=== PATIENT | female | born 1930 | race Caucasian/White ===

== ENCOUNTER 2016-06-23 21:04 | Inpatient (IN) | payer MEDICARE, OTHER ==
[~2016-06-23] VITALS: Ht 160 cm; Wt 55.5 kg
[~2016-06-23 21:04] MED LIST changes: -ALBU2.5V7 AEROSOL; -CALC750T4 PO; -DEXA4TAB PO; -MECL-103 PO; -POLY17PO18 PO; -SCOP1PAT TD; -SENN-152 PO
--- OUTSIDE RECORDS SUMMARY | 2016-06-23 21:10 | XMS REPORT | Continuity of Care Document ---
Author Author [facility] Organization [facility] Address Unknown Phone Unavailable Support Name Relationship Address Phone DARYN CORDOBA MD Caregiver [address] [facility] [address] [place] [address] Unavailable ANDRZEJ PETTIT MD Caregiver [address] [place] [address] Unavailable JAYDE CANSECO Next Of Kin [address] [place] [address] Insurance Providers Guarantor Norris Gomez Address [address] [place] [address] Email [email or web address] Payer Eve[employer] Policy Number [id number] Subscriber's Name Norris Gomez Relationship 18 Self Group Number [facility] Payer Medicare Policy Number [id number] Subscriber's Name Norris Gomez Relationship 18 Self Advance Directives Directive Response Recorded Date/Time Advanced Directives Type None 06/17/16 12:15pm Chief Complaint and Reason for Visit Chief Complaint Head Injury Reason for Visit [id number] Fall Problems Active Problems Medical Problem Onset Date Status Vision changes Unknown Acute Vision changes Unknown Acute Past Problems Medical Problem Onset Date Fall Unknown Lip injury Unknown Nasal injury Unknown Medications Current Home Medications Medication Dose Units Route Directions Days Qty Instructions Start Date Acetaminophen (Acetaminophen Extra Strength) 500 Mg Tablet 1-2 Tab Oral As Needed as needed for Pain 06/17/16 Albuterol Sulfate (Ventolin Hfa 90 Mcg/Actuation) 18 Gm Hfa.aer.ad 1 Puff Oral Inhalation Every 4 Hours as needed for Shortness Of Air/Wheezing 06/17/16 Alprazolam 0.5 Mg Tablet 0.25 Mg Oral As Needed as needed for Prn Orders 08/25/15 Aspirin (Aspir 81) 81 Mg Tablet.dr 81 Mg Oral Daily 04/13/08 Atorvastatin Calcium 10 Mg Tablet 10 Mg Oral Bedtime 12/14/13 Calcium Carbonate (Calcium) 600 Mg Tablet 600 Mg Oral Daily 06/17 Furosemide (Lasix) 20 Mg Tablet 40 Mg Oral Daily 04/27/15 Latanoprost (Xalatan) 2.5 Ml Drops 1 Drop Ophthalmic Daily Levothyroxine Sodium 25 Mcg Tablet 25 Mcg Oral Before Breakfast 12/14/13 Metoprolol Succinate 50 Mg Tab.er.24h 25 Mg Oral Twice A Day 09/21 Multivitamin (Multivitamins) 1 Each Tablet 1 Tab Oral Daily 12/14 Omeprazole (Prilosec) 20 Mg Capsule. 20 Mg Oral Daily 06/17/11 Ondansetron (Ondansetron Odt) 4 Mg Tab.rapdis 4 Mg Oral Every 4 Hours as needed for Nausea &/Or Vomiting 11/12/15 Pea Protein 1 Dose Oral Daily 06/17/16 Polyvinyl Alcohol/Povidone/Pf (Refresh Classic Eye Drops) 1 Each Droperette 1 Drop Both Eyes Daily 11/12/15 Potassium Chloride 20 Meq Tab.er.prt 20 Meq Oral Twice A Day 01/24 Past Home Medications Medication Directions Ordered Status Al Hydroxide/Mg Hydroxide (Maalox) 30 Ml Suspension, Mg Oral 01/15/11 Discontinued Clopidogrel Bisulfate (Plavix) 75 Mg Tablet, 1 Tab Oral Daily 03/27/09 Discontinued Diltiazem Hcl (Diltiazem Er) 120 Mg Capsule.cr, 120 Mg Oral Twice A Day 03/27 Discontinued Isosorbide Mononitrate 30 Mg Tab.sr.24h, 1 Tab Oral Daily 03/27/09 Discontinued Lorazepam 0.5 Mg Tablet, 0.5 Mg Oral As Needed 01/15/11 Discontinued Nitroglycerin (Nitro-Dur) 1 Patch .24 H Patch.td24, 0.2 Mg Transderm Daily Discontinued Omeprazole (Prilosec) 10 Mg Capsule.dr, 1 Tab Oral Daily 04/13/08 Discontinued Valsartan (Diovan) 80 Mg Tablet, 30 Mg Oral Daily 03/27/09 Discontinued Zolpidem Tartrate (Ambien) 10 Mg Tablet, 10 Mg Oral Bedtime 01/15/11 Discontinued Social History Social History Problem Response Recorded Date/Time Onset Date Status Hx Substance Use No 11/11/2015 2:32pm Not Applicable Not Applicable Hx Alcohol Use Y RARE 11/11/2015 2:32pm Not Applicable Not Applicable Has the pt used tobacco in the last 12 months No 11/12/2015 12:01pm Not Applicable Not Applicable Tobacco Usage none 12/14/2013 6:16pm Not Applicable Not Applicable Hospital Discharge Instructions No hospital discharge instructions. Plan of Care Discharge Date 06/17/16 3:12pm Disposition 01 DISCHARGED HOME, SELF-CARE Condition at Discharge Stable Instructions/Education Provided Fall Prevention for Older Adults (ED) Acute Wound Care (ED) Prescriptions See Medication Section Referrals DARYN CORDOBA MD Address: [address] [place] [address] [place] [phone] Additional Instructions/Education 1. Continue keeping lip clean and dry. Use ointment to keep moist. Follow up if it's not healing nicely 2. Follow up with dr. cordoba if you continue to have difficulty breathing through your nose. You may try applying ice to your nose to reduce inflammation 3. Come back to ER or go see Dr. cordoba if you have trouble walking or increased falling Functional Status No functional status results. Allergies, Adverse Reactions, Alerts Allergen Type Severity Reaction Status Last Updated propoxyphene HCl Allergy Unknown Active 06/17/16 Morphine Allergy Intermediate ITCHING,HOT Active 06/17/16 Codeine Adverse Reaction Intermediate VOMITING Active 06/17/16 Hydrocodone Adverse Reaction Intermediate VOMITING Active 06/17/16 Oxycodone Adverse Reaction Unknown CONFUSION Active 06/17/16 Meperidine Adverse Reaction Intermediate VOMITING Active 06/17/16 Immunizations Query Response on File Recorded Date/Time Hx Influenza Vaccination Y fall 201411/12/15 12:01pm Hx Pneumococcal Vaccination Y WITHIN PAST 5 YEARS 11/12/15 12:01pm Hx Influenza Vaccination Y fall 201411/12/15 12:01pm Vital Signs Acute Vital Signs Vital Response Date/Time Temperature (Fahrenheit) 97.8 deg F (96.8 - 99.1) 06/17/2016 12:15pm Temperature (Calculated Celsius) 36.08331 degrees C (36.0 - 37.3) 06/17/2016 12:15pm Pulse Rate (adult) 68 bpm (60 - 100) 06/17/2016 12:15pm Respiratory Rate 14 breaths/min (10 - 20) 06/17/2016 12:15pm O2 Sat by Pulse Oximetry 97 % (90 - 100) 06/17/2016 12:15pm Blood Pressure 218/93 mm Hg 06/17/2016 12:15pm Height (Feet) 5 feet 06/17/2016 12:15pm Height (Inches) 4.00 inches 06/17/2016 12:15pm Weight (Kilograms) 55.000 kg 06/17/2016 12:15pm Body Mass Index (BMI) 20.0 06/17/2016 12:15pm Results Laboratory Results Test Name Result Units Flags Reference Collection Date/Time Result Date/ Time Comments White Blood Count 10.1 T/MM3 4.5-11.0 04/07/2016 9:34a 04/07/2016 9: 39am Red Blood Count 3.97 M/MM3 L 4.00-5.20 04/07/2016 9:34a 04/07/2016 9: 39am Hemoglobin 12.3 GM/DL 12-16 04/07/2016 9:34a 04/07/2016 9:39am Hematocrit 39.7 % 36-46 04/07/2016 9:34a 04/07/2016 9:39am Mean Corpuscular Volume 100.0 UM3 80-100 04/07/2016 9:34a 04/07/2016 9 :39am Mean Corpuscular Hemoglobin 31.0 UUG 26-34 04/07/2016 9:34a 2015 9:39am Mean Corpuscular Hemoglobin Concent 31.0 GM/DL 31-37 04/07/2016 9:34a 04/07/2016 9:39am RDW Standard Deviation 54.7 FL H 36.9-50.2 04/07/2016 9:34a 04/07/2016 9:39am Platelet Count 132 T/MM3 130-400 04/07/2016 9:34a 04/07/2016 9:39am Mean Platelet Volume 12.0 UM3 9.4-12.4 04/07/2016 9:34a 04/07/2016 9: 39am Neutrophils (%) (Auto) 48.2 % 33-66 04/07/2016 9:34a 04/07/2016 9: 39am Lymphocytes (%) (Auto) 37.2 % 23-45 04/07/2016 9:34a 04/07/2016 9: 39am Monocytes (%) (Auto) 12.7 % H 0-9.0 04/07/2016 9:[facility] 04/07/2016 9:39am Eosinophils (%) (Auto) 1.4 % 0-4 04/07/2016 9:[facility] 04/07/2016 9:39am Basophils (%) (Auto) 0.2 % 0-2 04/07/2016 9:[facility] 04/07/2016 9:39am Immature Granulocyte % (Auto) 0.3 % 0.0-0.5 04/07/2016 9:[facility] 2015 9:39am Absolute Neutrophils (auto) 4.9 T/MM3 1.8-7.7 04/07/2016 9:[facility] 2015 9:39am Absolute Lymphocytes (auto) 3.8 T/MM3 1-4.8 04/07/2016 9:[facility] 2015 9:39am Absolute Monocytes (auto) 1.3 T/MM3 H 0-0.8 04/07/2016 9:[facility] 2015 9:39am Absolute Eosinophils (auto) 0.1 T/MM3 0-0.5 04/07/2016 9:[facility] 2015 9:39am Absolute Basophils (auto) 0.0 T/MM3 0-0.2 04/07/2016 9:[facility] 04/07/2016 9:39am Absolute Immature Granulocyte (auto 0.03 T/MM3 0.00-0.03 04/07/2016 9: [facility] 04/07/2016 9:39am Icterus Index < 2 0-7 04/07/2016 9:[facility] 04/07/2016 9:48am Chemistry Specimen Hemolysis < 15 0-25 04/07/2016 9:[facility] 04/07/2016 9 :48am 0-25: Specimen Exhibited No Hemolysis. Turbidity < 20 0-20 04/07/2016 9:34a 04/07/2016 9:48am Sodium Level 137 MEQ/L 134-144 04/07/2016 9:34a 04/07/2016 9:48am Potassium Level 4.5 MEQ/L 3.6-5 04/07/2016 9:[facility] 04/07/2016 9:48am Chloride Level 100 MEQ/L 98-107 04/07/2016 9:34a 04/07/2016 9:48am Carbon Dioxide Level 28 MEQ/L 22-30 04/07/2016 9:[facility] 04/07/2016 9: 48am Anion Gap 9 MEQ/L 5-15 04/07/2016 9:[facility] 04/07/2016 9:48am Blood Urea Nitrogen 18.0 MG/DL H 7-17 04/07/2016 9:34a 04/07/2016 9: 48am Creatinine 0.7 MG/DL 0.7-1.2 04/07/2016 9:[facility] 04/07/2016 9:48am BUN/Creatinine Ratio 26 RATIO 6-26 04/07/2016 9:[facility] 04/07/2016 9:48am Glomerular Filtration Rate Calc 79 04/07/2016 9:[facility] 04/07/2016 9: 48am Glucose Level 85 MG/DL 65-110 04/07/2016 9:[facility] 04/07/2016 9:48am Calculated Osmolality 265 MOSM/KG 261-280 04/07/2016 9:[facility] 04/07/2016 9:48am Calcium Level 9.1 MG/DL 8.4-10.2 04/07/2016 9:[facility] 04/07/2016 9:48am Total Bilirubin 1.10 MG/DL 0.20-1.30 04/07/2016 9:[facility] 04/07/2016 9: 48am Alkaline Phosphatase 122 U/L 38-126 04/07/2016 9:[facility] 04/07/2016 9: 48am Total Protein 7.2 G/DL 6.3-8.2 04/07/2016 9:[facility] 04/07/2016 9:48am Albumin 3.9 G/DL 3.5-5.0 04/07/2016 9:[facility] 04/07/2016 9:48am Globulin 3.3 G/DL 2.4-3.6 04/07/2016 9:[facility] 04/07/2016 9:48am Albumin/Globulin Ratio 1.2 RATIO 1.1-2.2 04/07/2016 9:[facility] 04/07/2016 9 :48am Aspartate Amino Transf (AST/SGOT) 29 U/L 14-36 04/07/2016 9:34a 2015 9:48am Alanine Aminotransferase (ALT/SGPT) 37 U/L 9-52 04/07/2016 9:34am 04/07 9:48am Carcinoembryonic Antigen 2.10 UG/L 0-3.0 04/07/2016 9:34am 04/07/2016 10:18am CA 27.29 36.54 U/ML 0-37.7 04/07/2016 9:34am 04/07/2016 10:20am Name: NORRIS GOMEZ Unit #: [id number] : [id number] Sex: F Admit Date: Loc / Svc: ED Discharge Date: DIAGNOSTIC IMAGING REPORT Report #: [id number] [facility] ECHO Ty Indication: ITS.REASON: FALL, NASAL INJURY PROCEDURE: CT MAXILLOFACIAL W/O CONTRAST: Encounter: Initial Comparison: None Technique: Axial noncontrast CT images through the mid face were performed with coronal and sagittal two-dimensional reformats. Automated Exposure Control and Iterative Reconstruction dose reducing techniques were utilized. Findings: No acute maxillofacial fracture identified. Metallic artifact from prior dental restorations. The paranasal sinuses are grossly clear as are the visualized mastoid air cells. Prior cataract surgeries. The globes are intact. No focal fluid collection or hematoma identified. Leftward nasal septal deviation and spurring. Impression: No acute maxillofacial fracture seen. . Procedures Procedure Status Date Provider(s) Routine venipuncture Completed 04/07/16 Chest x-ray 2vw frontal&latl Completed 04/07/16 Comprehen metabolic panel Completed 04/07/16 Carcinoembryonic antigen Completed 04/07/16 Complete cbc w/auto diff wbc Completed 04/07/16 Immunoassay tumor ca 15-3 Completed 04/07/16 Drain/inj joint/bursa w/o us Completed 05/16/16 Needle localization by xray Completed 05/16/16 [id number]"INJECTION, BETAMETHASONE ACETATE 3MG AND BETAMETHASON Completed 003"HIGH OSMOLAR CONTRAST MATERIAL, 250-299 MG/ML IODINE Completed Encounters Encounter Location Arrival/Admit Date Discharge/Depart Date Attending Provider Departed Emergency Room [facility] 06/17/16 12:13pm 06/17/16 3: 12pm ANDRZEJ PETTIT MD Registered Clinic [facility] 05/16/16 10:25am AURORA ABBASI MD Registered [facility] 04/07/16 8:59am ALPHONSO MANZANO MD Recent Diagnosis
[2016-06-23] MEDS ORDERED: NORMAL SALINE 500 ML IV ONE (21:12)
--- OUTSIDE RECORDS SUMMARY | 2016-06-23 21:12 | XMS REPORT | Continuity of Care Document ---
Author Author [facility] Organization [facility] Address Unknown Phone Unavailable Support Name Relationship Address Phone DARYN MASTERS MD Caregiver [address] [place] [phone] ABDULKADIR WORTHINGTON MD Caregiver [address] [place] [address] [place] [phone] JAYDE CANSECO Next Of Kin [address] [place] [address] Insurance Providers Payer Name Policy Number Subscriber Name Relationship Medicare [id number] Norris Gomez 18 Self [employer] [id number] Norris Gomez 18 Self Advance Directives Directive Response Recorded Date/Time Advanced Directives Type None 12/14/13 12:52pm Problems Medical Problems Problem Onset Date Status Vision changes Unknown Active Vision changes Unknown Active Medications Medication Dose Route Sig Days/Qty Instructions Order Date Discontinued Date Status Aspirin 1 Tab PO DAILY 04/13/08 Active Diltiazem Hcl 120 Mg PO TWICE A DAY 03/27/09 06/24/11 Discontinued Valsartan 30 Mg PO DAILY 03/27/09 06/17/11 Discontinued Nitroglycerin 0.2 Mg TD DAILY 04/13/08 03/27/09 Discontinued Omeprazole 1 Tab PO DAILY 04/13/08 03/27/09 Discontinued Isosorbide Mononitrate 1 Tab PO DAILY 03/27/09 06/17/11 Discontinued Clopidogrel Bisulfate 1 Tab PO DAILY 03/27/09 06/17/11 Discontinued Latanoprost 2.5 Ml OP DAILY 01/15/11 Active Al Hydroxide/Mg Hydroxide Mg PO 01/15/11 06/24/11 Discontinued Zolpidem Tartrate 10 Mg PO BEDTIME 01/15/11 06/17/11 Discontinued Lorazepam 0.5 Mg PO NEEDED 01/15/11 06/17/11 Discontinued Nifedipine 30 Mg PO BEDTIME 06/17/11 Active Omeprazole 20 Mg PO DAILY 06/17/11 Active Fish Oil/[place]-3 Fatty Acids 1 Cap PO DAILY 08/09/11 Active Atorvastatin Calcium 1 Tab PO BEDTIME 12/14/13 Active Levothyroxine Sodium 25 Mcg PO BEFORE BREAKFAST Once daily before breakfast 12/14/13 Active Metoprolol Succinate 25 Mg PO TWICE A DAY 12/14/13 Active Multivitamin 1 Tab PO DAILY 12/14/13 Active Social History Social History Problem Response Recorded Date/Time Smoking Status Never smoker 12/14/2013 12:06pm Hx Substance Use No 12/14/2013 12:06pm Hx Alcohol Use No 12/14/2013 12:06pm Hospital Discharge Instructions No hospital discharge instructions. Plan of Care No plan of care. Functional Status Query Response Date Recorded Physical Hygiene Self December 14, 2013 12:06pm Disabilities Visual December 14, 2013 12:06pm Devices Used Glasses December 14, 2013 12:06pm Dressing Self December 14, 2013 12:06pm Ambulation Self December 14, 2013 12:06pm Diet Self December 14, 2013 12:06pm Mental Status Alert Oriented December 14, 2013 12:06pm Disabilities Visual December 14, 2013 12:06pm Devices Used Glasses December 14, 2013 12:06pm Physical Hygiene Self December 14, 2013 12:06pm Dressing Self December 14, 2013 12:06pm Ambulation Self December 14, 2013 12:06pm Diet Self December 14, 2013 12:06pm Allergies, Adverse Reactions, Alerts Allergen Type Severity Reaction Status Last Updated propoxyphene HCl Allergy Unknown Active 12/14/13 Morphine Allergy Intermediate ITCHING,HOT Active 12/14/13 Codeine Adverse Reaction Intermediate VOMITING Active 12/14/13 Hydrocodone Adverse Reaction Intermediate VOMITING Active 12/14/13 Meperidine Adverse Reaction Intermediate VOMITING Active 01/15/11 Immunizations Name Given Type Hx Influenza Vaccination Y fall Historical Hx Pneumococcal Vaccination Y 3 YRS AGO Historical Hx Influenza Vaccination Y fall Historical Vital Signs Acute Vital Signs Vital Response Date/Time Temperature (Fahrenheit) 97.6 deg F (96.8 - 99.1) Temperature (Calculated Celsius) 36.89790 degrees C (36.0 - 37.3) Pulse Rate (adult) 69 bpm (60 - 100) Respiratory Rate 16 breaths/min (10 - 20) O2 Sat by Pulse Oximetry 96 % (90 - 100) Blood Pressure 186/77 mm Hg Height 5 ft 3.5 in Weight 125 lb Body Mass Index 21.0 kg/m^2 Results Test Source Date Result Interp. Ref. Range Comments Activated Partial Thromboplast Time January 15, 2011 11:00pm 27.4 SEC N 24-36 Alanine Aminotransferase (ALT/SGPT) December 14, 2013 12:59pm 27 U/L N 9-52 Albumin December 14, 2013 12:59pm 4.8 G/DL N 3.5-5.0 Albumin/Globulin Ratio December 14, 2013 12:59pm 1.4 RATIO N 1.1-2.2 Alkaline Phosphatase December 14, 2013 12:59pm 120 U/L N 38-126 Amylase Level June 18, 2011 4:30am 120 U/L H 30-110 Anion Gap December 14, 2013 12:59pm 15 MEQ/L N 5-15 Aspartate Amino Transf (AST/SGOT) December 14, 2013 12:59pm 37 U/L H 14 -36 B-Type Natriuretic Peptide January 15, 2011 11:00pm 335 PG/ML H 15-100 BUN/Creatinine Ratio December 14, 2013 12:59pm 24 RATIO N 6-26 Band Neutrophils # July 12, 2010 12:17pm 0.3 T/MM3 - Band Neutrophils % July 12, 2010 12:17pm 3.0 % N 0-6 Basophils # (Auto) December 14, 2013 12:58pm 0.0 T/MM3 N 0-0.2 Basophils (%) (Auto) December 14, 2013 12:58pm 0.3 % N 0-2 Blood Urea Nitrogen December 14, 2013 12:59pm 19.0 MG/DL H 7-17 Calcium Level December 14, 2013 12:59pm 10.0 MG/DL N 8.4-10.2 Calculated Osmolality December 14, 2013 12:59pm 274 MOSM/KG N 261-280 Carbon Dioxide Level December 14, 2013 12:59pm 25 MEQ/L N 22-30 Chloride Level December 14, 2013 12:59pm 101 MEQ/L N 98-107 Conjugated Bilirubin June 17, 2011 2:40pm 0.00 MG/DL N 0.00-0.30 CALL RESULTS TO [phone] STAT PLEASE Creatinine December 14, 2013 12:59pm 0.8 MG/DL N 0.7-1.2 D-Dimer August 04, 2007 9:31am 773 NG/ML H 68-494 <500 NG/ML FIBRIN DEGRADATION EQUIVALENTS=PRESUMPTIVE NEGATIVE FOR PE OR DVT >500 NG/ML FIBRIN DEGRADATION EQUIVALENTS =ADDITIONAL EVALUATION FOR PE OR DVT RECOMMENDED VALUES ARE DECREASED SHARPLY BY ANTICOAGULANT THERAPY Differential Total Cells Counted July 12, 2010 12:17pm 100 % - Eosinophils # (Auto) December 14, 2013 12:58pm 0.1 T/MM3 N 0-0.5 Eosinophils # (Manual) March 27, 2009 6:20pm 0.3 T/MM3 N 0-0.5 Eosinophils % (Manual) March 27, 2009 6:20pm 4.0 % N 0-4 Eosinophils (%) (Auto) December 14, 2013 12:58pm 0.5 % N 0-4 Globulin December 14, 2013 12:59pm 3.4 G/DL N 2.4-3.6 Glucose Level December 14, 2013 12:59pm 108 MG/DL N 65-110 Hematocrit December 14, 2013 12:58pm 45.1 % N 36-46 Hemoglobin December 14, 2013 12:58pm 15.0 GM/DL N 12-16 Lipase June 18, 2011 4:30am 75 U/L N 23-300 Lymphocytes # (Auto) December 14, 2013 12:58pm 3.4 T/MM3 N 1-4.8 Lymphocytes # (Manual) July 12, 2010 12:17pm 1.3 T/MM3 N 1-4.8 Lymphocytes % (Manual) July 12, 2010 12:17pm 13.0 % L 23-45 Lymphocytes (%) (Auto) December 14, 2013 12:58pm 32.2 % N 23-45 Mean Corpuscular Hemoglobin December 14, 2013 12:58pm 32.5 UUG N 26-34 Mean Corpuscular Hemoglobin Concent December 14, 2013 12:58pm 33.3 GM/DL N 31-37 Mean Corpuscular Volume December 14, 2013 12:58pm 97.6 UM3 N 80-100 Mean Platelet Volume December 14, 2013 12:58pm 12.8 UM3 H 9.4-12.4 Monocytes # (Auto) December 14, 2013 12:58pm 0.9 T/MM3 H 0-0.8 Monocytes # (Manual) July 12, 2010 12:17pm 1.0 T/MM3 H 0-0.8 Monocytes % (Manual) July 12, 2010 12:17pm 10.0 % H 0-9.0 Monocytes (%) (Auto) December 14, 2013 12:58pm 8.9 % N 0-9.0 Neutrophils # (Auto) December 14, 2013 12:58pm 6.1 T/MM3 N 1.8-7.7 Neutrophils # (Manual) July 12, 2010 12:17pm 7.3 T/MM3 N 1.8-7.7 Neutrophils % (Manual) July 12, 2010 12:17pm 74.0 % H 33-66 Neutrophils (%) (Auto) December 14, 2013 12:58pm 57.9 % N 33-66 Platelet Count December 14, 2013 12:58pm 127 T/MM3 L 130-400 Potassium Level December 14, 2013 12:59pm 4.1 MEQ/L N 3.6-5 Prealbumin June 17, 2011 2:40pm 26.2 MG/DL N 17.6-36.0 COMMENT BLOOD IN LAB Prothromb Time International Ratio December 14, 2013 12:59pm 0.88 N 0.81-1.09 THERAPUTIC RANGE=2.00-3.00 FOR ANTI-THROMBOSIS THERAPUTIC RANGE=2.50 -3.50 FOR IMPLANTED VALVE RDW Standard Deviation December 14, 2013 12:58pm 46.3 FL N 36.9-50.2 Red Blood Count December 14, 2013 12:58pm 4.62 M/MM3 N 4.00-5.20 Sodium Level December 14, 2013 12:59pm 141 MEQ/L N 134-144 Thyroid Stimulating Hormone (TSH) December 14, 2013 12:59pm 1.56 MIU/L N 0.47-4.68 Total Bilirubin December 14, 2013 12:59pm 1.30 MG/DL N 0.20-1.30 Total Protein December 14, 2013 12:59pm 8.2 G/DL N 6.3-8.2 Troponin I January 15, 2011 11:00pm < 0.012 ng/ml 0-0.12 Unconjugated Bilirubin June 17, 2011 2:40pm 1.00 MG/DL N 0.00-1.10 CALL RESULTS TO [phone] STAT PLEASE Urine Bilirubin December 14, 2013 12:30pm Negative - Has specimen been collected/obtained? Y Urine Blood December 14, 2013 12:30pm Trace-lysed H - Has specimen been collected/obtained? Y Urine Collection Type December 14, 2013 12:30pm Cleancatch-midstream - Has specimen been collected/obtained? Y Urine Color December 14, 2013 12:30pm Yellow - Has specimen been collected/obtained? Y Urine Glucose (UA) December 14, 2013 12:30pm Negative - Has specimen been collected/obtained? Y Urine Ketones December 14, 2013 12:30pm Negative - Has specimen been collected/obtained? Y Urine Leukocyte Esterase December 14, 2013 12:30pm Negative - Has specimen been collected/obtained? Y Urine Nitrite December 14, 2013 12:30pm Negative - Has specimen been collected/obtained? Y Urine Protein December 14, 2013 12:30pm Negative - Has specimen been collected/obtained? Y Urine Specific [place] December 14, 2013 12:30pm <=1.005 L - Has specimen been collected/obtained? Y Urine Turbidity December 14, 2013 12:30pm Clear - Has specimen been collected/obtained? Y Urine Urobilinogen December 14, 2013 12:30pm 0.2 EU/DL - Has specimen been collected/obtained? Y Urine WBC June 17, 2011 4:20pm 0-1 /HPF - COMMENT C & S IF INDICATEDHas specimen been collected/obtained? Y Urine pH December 14, 2013 12:30pm 6.0 - Has specimen been collected /obtained? Y Vitamin B12 Level June 17, 2011 2:40pm 866 PG/ML N 239-931 COMMENT BLOOD IN LAB White Blood Count December 14, 2013 12:58pm 10.5 T/MM3 N 4.5-11.0 Chemistry Specimen Hemolysis December 14, 2013 12:59pm < 15 0-25 0- 25: No Hemolysis.26-70: Slight Hemolysis - can falsely elevate K and Urine Protein. 71-285: Moderate Hemolysis - can falsely elevate K, Troponin I, CA 19-9, PTH, CSF GLucose, and Urine Protein, and can falsely decrease Phenytoin. 286-999: Gross Hemolysis - can falsely elevate K, Troponin I, CA 19-9, PTH, CSF Glucose, and Urine Protine, and can falsely decrease Phenytoin. Recommend specimen recollection. Urinalysis Comment December 14, 2013 12:30pm Microscopic not ind. - Has specimen been collected/obtained? Y Lab Scanned Report June 17, 2011 4:10pm LAB TEST FORM REQUEST [id number] - EKG May 01, 2009 8:10am Complete - Turbidity December 14, 2013 12:59pm < 20 0-20 Glomerular Filtration Rate Calc December 14, 2013 12:59pm 68 - Immature Granulocyte # (Auto) December 14, 2013 12:58pm 0.02 T/MM3 N 0.00-0.03 Immature Granulocyte % (Auto) December 14, 2013 12:58pm 0.2 % N 0.0- 0.5 Icterus Index December 14, 2013 12:59pm < 2 0-7 Procedures No known history of procedures. Encounters Encounter Location Date/Time Departed Emergency Room [facility] 12/14/13 10:12am Recent Diagnosis
--- OUTSIDE RECORDS SUMMARY | 2016-06-23 21:32 | XMS REPORT | Continuity of Care Document ---
Author Author [facility] Organization [facility] Address Unknown Phone Unavailable Support Name Relationship Address Phone DARYN MASTERS MD Caregiver [address] [place] [phone] ABDULKADIR WORTHINGTON MD Caregiver [address] [place] [address] [place] [phone] JAYDE CANSECO Next Of Kin [address] [place] [address] Insurance Providers Payer Name Policy Number Subscriber Name Relationship Medicare [id number] Norris Gomez 17 Self [place] [id number] Norris Gomez 17 Self Advance Directives Directive [...] 20 Mg PO DAILY 06/17/11 Active Fish Oil/[place]-3 Fatty Acids 1 Cap PO DAILY 08/09/11 [...] F (96.8 - 99.1) Temperature (Calculated Celsius) 36.89580 degrees C (36.0 - 37.3) Pulse Rate [...] 0.00 MG/DL N 0.00-0.30 CALL RESULTS TO [phone] STAT PLEASE Creatinine December 14, 2013 12:59pm [...] 1.00 MG/DL N 0.00-1.10 CALL RESULTS TO [phone] STAT PLEASE Urine Bilirubin December 14, 2013 [...] Has specimen been collected/obtained? Y Urine Specific [place] December 14, 2013 12:30pm <=1.005 L - [...] 17, 2011 4:10pm LAB TEST FORM REQUEST [id number] - EKG May 01, 2009 8:10am Complete [...] Encounters Encounter Location Date/Time Departed Emergency Room [facility] 12/14/13 10:12am Recent Diagnosis
--- NOTE | 2016-06-23 21:45 | ERPDOC ---
Departure Disposition Decision Date: Jun 23, 2016 Disposition Decision Time: 23:35 Disposition: 02 TO [facility] Impression Impression Impression: Primary Impression: Weakness Severity: Moderate Condition: Stable Seen By: Physician only Referrals: DARYN MASTERS MD (Family) Problems/Meds/Labs Reviewed?: Yes Medications reviewed and manag: Yes Follow up care ordered?: Yes Mental Status: Alert, Oriented HPI - Lower Extremity General Chief Complaint: Weakness/Neuro Symptoms Stated Complaint: WEAK LEGS Time Seen by Provider: 21:12 Source: patient, EMS Exam Limitations: no limitations HPI - Lower Extremity Initial Comments 85yo woman presented to the ER for b/l LE weakness. Pt was seen in this ER 1 week ago for a fall. Had a head CT without significant abn's immediately following. Pt has had several other episodes of unsteadiness or falls since; was sent earlier today for a repeat head CT for the falls and some subjective leg weakness. Pt states that over the last 6 hours, weakness has become precipitously worse. Now unsteady on her feet. Has never had sx like this before. Occurred At: home Onset/Timing: Rapid, Gradual, Getting worse Duration: 6-12 hrs Severity: moderate Pain/Injury Location: bilateral hip, bilateral leg, bilateral thigh Method of Injury: unknown Hx of Similar Symptoms: No Associated Symptoms: weakness Allergies: Coded Allergies: morphine (Verified Allergy, Intermediate, ITCHING,HOT, 06/17/16) propoxyphene HCl (Verified Allergy, Unknown, 06/17/16) codeine (Unverified Adverse Reaction, Intermediate, VOMITING, 06/17/16) hydrocodone (Verified Adverse Reaction, Intermediate, VOMITING, 06/17/16) meperidine (Verified Adverse Reaction, Intermediate, VOMITING, 06/17/16) oxycodone (Unverified Adverse Reaction, Unknown, CONFUSION, 06/17/16) Past History Past Medical History Metabolic: cancer, hypercholesterolemia, hypertension ENMT: cataracts, glaucoma Cardiac: CAD, MN, other GI: GERD Musculoskeletal: osteoarthritis Surgical History General: other Cardiac: cardiac bypass, cardiac stent Joint: shoulder Family History Family PMH: FOUND: [place], hypertension Vaccines Hx Influenza Vaccination: Yes (FALL 2014) Hx Pneumococcal Vaccination: Yes (WITHIN PAST 5 YEARS) Social History Does patient use chewing tobac: No Substance Use Type: does not use Alcohol Intake: occasionally Current Occupational Status: retired Review of Systems Musculoskeletal General: weakness Neurological General: weakness All other Systems All Other Systems: Reviewed and Negative Physical Exam General General Nourishment: well nourished, well developed, appears stated age, no acute distress, adult, thin General Body Habitus: well groomed Vitals and Pain First Documented Vital Signs Date Time Temp Pulse Resp B/P Pulse Ox O2 Delivery O2 Flow Rate FiO2 06/23/16 21:16 98.4 59 18 200/91 96 Room Air Weight: Kilograms: 55.500 Height (feet): 5 Height (inches): 3.00 Triage Pain Scale: RN VS reviewed by Provider: Yes Normal Exams: Head: Normocephalic w/o trauma Eyes: Pupils are PERRLA w/ EOMI, No scleral icterus, irritation Neck: Full range of motion, without adenopathy, JVD Lymphatic: No lymphadenopathy Integumentary: No rashes, hives Neurologic: Patient is alert, and oriented Psychiatric: Patient exhibits, appropriate attention Respiratory (brief) Respiratory: FOUND: clear all epps, equal bilaterally, symmetrical, NOT FOUND : rales, wheezes Cardiovascular (brief) Cardiac: FOUND: regular rate, regular rhythm, NOT FOUND: click, gallop, murmur , pedal edema, peripheral edema, rub Capillary Refill: <2 sec Pulses: all distal extremities, equal, strong Abdomen (brief) Abdominal Brief: FOUND: bowel normo active x4, soft, NOT FOUND: distended, hepatosplenomegaly, pulsatile mass, tender Musculoskeletal Extremity : Side: Bilateral Extremity: thigh, leg, foot Extremity Findings: NOT FOUND: deformity, discoloration, laceration, pain, swelling Comments Strength 4/5 globally Neurologic Motor : Motor Side: bilateral Motor Location: quadriceps, hamstring, foot extension, foot flexion Motor Degree: 4 DTR's : DTR Side: bilateral DTR Location: Patellar DTR Grade: 2+ Differential Diagnoses Considering: Contusion, Dislocation, Fracture, Other (cauda equina, intracranial hemorrhage, compression fx) Progress Results/Orders Orders Procedure Category Date Status Time Cmp - Comprehensive LAB 06/23/16 Complete Metabolic 21:12 Cbc W/Auto LAB 06/23/16 Complete Diff-Reflex Manual 21:12 Troponin I W LAB 06/23/16 Complete Hemolysis Index 21:12 Ua, Dip Wreflex LAB 06/23/16 Complete Microsc & Soft Tile Setter 21:12 EKG EKG 06/23/16 Taken 21:12 Iv Lock (Ed Only) EDM 06/23/16 Transmitted 21:12 Normal Saline (Normal PHA 06/23/16 Complete Saline Iv) 21:12 Tsh - Thyroid Stim LAB 06/23/16 Complete Hormone Magnesium LAB 06/23/16 Complete Phosphorus LAB 06/23/16 Complete 21:[address] 06/23/16 Taken W/Contrast 21:16 Iohexol (Omnipaque) PHA 06/23/16 Complete 22:24 Normal Saline (Ns) PHA 06/23/16 Complete 22:24 Saline Flush (Iv PHA 06/23/16 Complete Flush) 22:24 Place In Facility: ED ADM 06/23/16 Transmitted Lab Results Laboratory Tests Test 06/23/16 21:35 06/23/16 22:59 White Blood Count 7.6T/MM3 Red Blood Count 3.96M/MM3 Hemoglobin 12.6GM/DL Hematocrit 39.1% Mean Corpuscular Volume 98.7UM3 Mean Corpuscular Hemoglobin 31.8UUG Mean Corpuscular Hemoglobin Concent 32.2GM/DL RDW Standard Deviation 47.2FL Platelet Count 125T/MM3 Mean Platelet Volume 12.7UM3 Immature Granulocyte % (Auto) 0.0% Neutrophils (%) (Auto) 47.0% Lymphocytes (%) (Auto) 37.2% Monocytes (%) (Auto) 13.9% Eosinophils (%) (Auto) 1.6% Basophils (%) (Auto) 0.3% Absolute Immature Granulocyte (auto 0.00T/MM3 Absolute Neutrophils (auto) 3.6T/MM3 Absolute Lymphocytes (auto) 2.8T/MM3 Absolute Monocytes (auto) 1.1T/MM3 Absolute Eosinophils (auto) 0.1T/MM3 Absolute Basophils (auto) 0.0T/MM3 Turbidity < 20 Sodium Level 136MEQ/L Potassium Level 4.6MEQ/L Chloride Level 100MEQ/L Carbon Dioxide Level 30MEQ/L Anion Gap 6MEQ/L Blood Urea Nitrogen 17.0MG/DL Creatinine 0.6MG/DL Glomerular Filtration Rate Calc 95 BUN/Creatinine Ratio 28RATIO Glucose Level 106MG/DL Calculated Osmolality 264MOSM/KG Calcium Level 9.5MG/DL Phosphorus Level 4.2MG/DL Magnesium Level 2.2MG/DL Total Bilirubin 1.20MG/DL Icterus Index < 2 Aspartate Amino Transf (AST/SGOT) 36U/L Alanine Aminotransferase (ALT/SGPT) 33U/L Alkaline Phosphatase 123U/L Troponin I < 0.012ng/ml Total Protein 7.0G/DL Albumin 3.8G/DL Globulin 3.2G/DL Albumin/Globulin Ratio 1.2RATIO Thyroid Stimulating Hormone (TSH) 4.05MIU/L Chemistry Specimen Hemolysis 24 Urine Collection Type Cleancatch-midstream Urine Color Yellow Urine Turbidity Clear Urine pH 7.5 Urine Specific [place] <=1.005 Urine Protein Negative Urine Glucose (UA) Negative Urine Ketones Negative Urine Blood Negative Urine Nitrite Negative Urine Bilirubin Negative Urine Urobilinogen 0.2EU/DL Urine Leukocyte Esterase Negative Urinalysis Comment Microscopic not ind. Medications Current ED Medications Sodium Chloride (Normal Saline IV) 500 ml @ 0 mls/hr Q0M ONCE IV Last administered on 06/23/16t 22:05; Start 06/23/16 at 21:12; Stop 06/23/16 at 21:16 ; Status DC Iohexol 1 bottle 1 bottle STK-MED ONCE .ROUTE ; Start 06/23/16 at 22:24; Stop at 22:25; Status DC Sodium Chloride (NS) 100 ml @ As Directed STK-MED ONCE .ROUTE ; Start 06/23/16 at 22:24; Stop 06/23/16 at 22:25; Status DC Sodium Chloride (Iv Flush) 10 ml STK-MED ONCE .ROUTE ; Start 06/23/16 at 22:24; Stop 06/23/16 at 22:25; Status DC Progress Progress Pt without any significant intracranial pathology or lumbar pathology. Pt was observed by NRS to stand without difficulty and pivot to bedside commode. Labs are unremarkable for likely causes of weakness. Urine shows no evidence of infection. At this time, no urgent/emergent causes found for pts sx. Will recommend close f/u with PCM to further identify pts sx. Pt and daughter are uncomfortable with pt going home, based on subjective weakness and h/o recent falls. Pt lives in an assisted living facility by herself, daughter is not able to house pt due to renovation of her home, and daughter and have difficulty lifting pt. Contacted hospitalist for possible observation with PT/OT in the AM. Pt to be admitted for overnight observation and reassessment. 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
[2016-06-23] MEDS ORDERED: MECL-103 PO (21:46)
[2016-06-23 21:56] LABS: BASOPHILS % (AUTO) 0.3 % (0-2); EOSINOPHILS # (AUTO) 0.1 T/MM3 (0-0.5); EOSINOPHILS % (AUTO) 1.6 % (0-4); HCT - HEMATOCRIT 39.1 % (36-46); HGB - HEMOGLOBIN 12.6 GM/DL (12-16); LYMPHOCYTES # (AUTO) 2.8 T/MM3 (1-4.8); LYMPHOCYTES % (AUTO) 37.2 % (23-45); MEAN CORPUSCULAR HGB 31.8 UUG (26-34); MEAN CORPUSCULAR HGB CONC(MCHC 32.2 GM/DL (31-37); MEAN CORPUSCULAR VOLUME 98.7 UM3 (80-100); MEAN PLATELET VOLUME 12.7 UM3 (9.4-12.4); MONOCYTES # (AUTO) 1.1 T/MM3 (0-0.8); MONOCYTES % (AUTO) 13.9 % (0-9.0); NEUTROPHILS #(AUTO)-ABSOLUTE 3.6 T/MM3 (1.8-7.7); RED BLOOD COUNT 3.96 M/MM3 (4.00-5.20); WBC - WHITE BLOOD COUNT 7.6 T/MM3 (4.5-11.0)
[2016-06-23 22:05] LABS: ALBUMIN 3.8 G/DL (3.5-5.0); ALBUMIN/GLOBULIN RATIO 1.2 RATIO (1.1-2.2); ALKALINE PHOSPHATASE 123 U/L (38-126); ALT (SGPT) 33 U/L (9-52); ANION GAP 6 MEQ/L (5-15); AST (SGOT) 36 U/L (14-36); BUN/CREATININE RATIO 28 RATIO (6-26); CALCIUM 9.5 MG/DL (8.4-10.2); CHLORIDE 100 MEQ/L (98-107); CO2 - CARBON DIOXIDE 30 MEQ/L (22-30); CREATININE 0.6 MG/DL (0.7-1.2); GLOMERULAR FILTRATION RATE 95; GLUCOSE 106 MG/DL (65-110); PHOSPHORUS 4.2 MG/DL (2.5-4.5); POTASSIUM 4.6 MEQ/L (3.6-5); SODIUM 136 MEQ/L (134-144)
[2016-06-23 22:10] LABS: MAGNESIUM 2.2 MG/DL (1.6-2.3)
[2016-06-23] MEDS ORDERED: IOHEXOL 300 MG/ML 100ml INJECTION ONE (22:24)
[2016-06-23] MEDS ORDERED: NORMAL SALINE 100 ML ONE (22:24)
[2016-06-23] MEDS ORDERED: SALINE FLUSH 10ml SYRINGE ONE (22:24)
[2016-06-23 22:42] LABS: THYROID STIM HORMONE-TSH 4.05 MIU/L (0.47-4.68)
[2016-06-23 23:08] LABS: BLOOD, URINE NEGATIVE (NEGATIVE); COLOR,URINE YELLOW (YELLOW); LEUKOCYTE ESTERASE ,URINE NEGATIVE (NEGATIVE); NITRITE,URINE NEGATIVE (NEGATIVE); UROBILINOGEN,URINE 0.2 EU/DL (NORMAL)
--- OUTSIDE RECORDS SUMMARY | 2016-06-23 23:53 | XMS REPORT | Continuity of Care Document ---
Author Author [facility] Organization [facility] Address Unknown Phone Unavailable Support Name Relationship Address Phone DARYN MASTERS MD Caregiver [address] [place] [phone] ABDULKADIR WORTHINGTON MD Caregiver [address] [place] [address] [place] [phone] JAYDE CANSECO Next Of Kin [address] [place] [address] Insurance Providers Payer Name Policy Number Subscriber Name Relationship Medicare [id number] Norris Gomez 17 Self [place] [id number] Norris Gomez 17 Self Advance Directives Directive [...] 20 Mg PO DAILY 06/17/11 Active Fish Oil/[place]-3 Fatty Acids 1 Cap PO DAILY 08/09/11 [...] F (96.8 - 99.1) Temperature (Calculated Celsius) 36.27900 degrees C (36.0 - 37.3) Pulse Rate [...] 0.00 MG/DL N 0.00-0.30 CALL RESULTS TO [phone] STAT PLEASE Creatinine December 14, 2013 12:59pm [...] 1.00 MG/DL N 0.00-1.10 CALL RESULTS TO [phone] STAT PLEASE Urine Bilirubin December 14, 2013 [...] Has specimen been collected/obtained? Y Urine Specific [place] December 14, 2013 12:30pm <=1.005 L - [...] 17, 2011 4:10pm LAB TEST FORM REQUEST [id number] - EKG May 01, 2009 8:10am Complete [...] Encounters Encounter Location Date/Time Departed Emergency Room [facility] 12/14/13 10:12am Recent Diagnosis
[2016-06-24] MEDS ORDERED: ALBUTEROL INH.SOLN. 2.5mg/3ml (0.083%) Neb. AEROSOL PRN
[2016-06-24] MEDS ORDERED: ONDANSETRON 4mg/2ml INJECTION IV PRN
[2016-06-24] MEDS ORDERED: HYDROCODONE/APAP 5 mg/325 mg TABLET PO PRN
--- NOTE | 2016-06-24 00:15 | NUR ---
Admission: Pt arrived at 0015 via cart to Room 141 with ER nurse and Pt daughter Present with Pt. Pt transferred from cart to bed with 2 assist holding onto Pt. Pt is unsteady on feet and is having difficulty with moving feet. Pt had a void at bedside commode after arrival. Pt is on room air. Pt denies pain. Pt made comfortable. Admission questions completed with Pt. Daughter left shortly after Pt was made comfortable. Pt oriented to room, call light, etc. Pt is a&o. Will continue to monitor.
[2016-06-24 00:20] VITALS: BP 165/69; PULSE 64; RESP 16; TEMP 97.6; O2SAT 93
[2016-06-24 00:24] VITALS: Ht 160 cm; Wt 55.5 kg
[2016-06-24 00:25] VITALS: PULSE 66; RESP 16
[2016-06-24] MEDS ORDERED: ALPRAZOLAM 0.25 MG TABLET PO PRN (01:00)
--- NOTE | 2016-06-24 01:00 | NUR ---
Orders: Received verbal orders form Dr. Melgoza via [employer] while on in Pt room for SCD's. Pt refused SCD's and states she has had them in the past and they do not allow her to sleep. Pt requested to have a sleep aid. Pt states she takes PRN Xanax at bedtime to help with sleep. Notified Dr. Melgoza and received telephone order for Xanax 0.25mg PO at HS PRN. This nurse verbalized understanding.
[2016-06-24] MEDS: ACETAMINOPHEN 500 MG TABLET PO PRN ×2 (01:30→20:33)
--- NOTE | 2016-06-24 01:30 | NUR ---
PRN/Headache: Pt c/o headache and requesting Tylenol. Notified Dr. Melgoza via tigertext and received telephone order for Tylenol PRN. This nurse tigertexted and reminded him that Pt is allergic to Hydrocodone and that med is currently ordered. Received verbal order for Tylenol PRN. Verbalized understanding. PRN Tylenol administered to Pt as charted. Will continue to monitor.
--- NOTE | 2016-06-24 04:58 | HPPDOC ---
RIMA TAM MD 06/24/16 0447: HPI - Adult Date DATE: 06/24/16 TIME: 05:44 General Chief Complaint: lower extremity weakness History of Present Illness This is an 85-year-old female who apparently 1 week ago fell striking her face. The patient was evaluated in the emergency department and a CT of the head was unremarkable for acute bleed or other injury. Since that time the patient had an episode of nausea and vomiting 2. The patient presented back to her primary care physicians office and a subsequent CT of the head was arranged which again did not demonstrate acute injury. The patient approximately 2:00 this afternoon had onset of increasing weakness to her lower extremities. To the point where she is unable to walk. This has never happened to the patient before. Up to this point this past week the patients bili driving care for herself easily. The episodes of falling are described by patient as a tripping or non-syncopal neurological event. The patient had been highly functional at this point. In the emergency department the patient had a CT of her lumbar spine which did not demonstrate an acute injury. The patients metabolic workup was unremarkable. TSH was normal. Urine was done infection. A CT of the head was repeated and again was without particular findings. Because of ongoing weakness the patient is to be admitted to the hospital for further assessment. The patient has not been incontinent of bowel or bladder. The patient does not describe numbness. The patient describes as inability to bear weight on her legs. The patient denies pain to her back. The patient denies headache. Past Medical History Past Medical History RA HTN dyslipidemia coronary artery disease Surgical History Patient's Surgical History: CABG Left shoulder x 2 bilateral massectomy Current Medications Home Meds Reported Medications Meclizine HCl (Meclizine HCl) 25 Mg Tablet, 25 MG PO BID Y for DIZZINESS Take 1 tablet, by mouth, 2 times a day. 06/23/16 [Pea Protein] No Conflict Check, 1 DOSE PO DAILY 06/17/16 Albuterol Sulfate (Ventolin HFA 90 mcg/actuation) 18 Gm Hfa.aer.ad, 1 PUFF ORAL INH Q4H Y for SHORTNESS OF AIR/WHEEZING 06/17/16 Calcium Carbonate (Calcium) 600 Mg Tablet, 600 MG PO DAILY 06/17/16 Acetaminophen (Acetaminophen Extra Strength) 500 Mg Tablet, 1-2 TAB PO PRN Y for PAIN 06/17/16 Potassium Chloride (Potassium Chloride) 20 Meq Tab.er.prt, 20 MEQ PO BID 06/17/16 Ondansetron (Ondansetron Odt) 4 Mg Tab.rapdis, 4 MG PO Q4HR Y for NAUSEA &/OR VOMITING 11/12/15 Polyvinyl Alcohol/Povidone/Pf (Refresh Classic Eye Drops) 1 Each Droperette, 1 DROP BOTH EYES DAILY, ML 11/12/15 Alprazolam (Alprazolam) 0.5 Mg Tablet, 0.25 MG PO HS Y for PRN ORDERS 08/25/15 Furosemide (Lasix) 20 Mg Tablet, 40 MG PO DAILY 04/27/15 Multivitamin (Multivitamins) 1 Each Tablet, 1 TAB PO DAILY 12/14/13 Metoprolol Succinate (Metoprolol Succinate) 50 Mg Tab.er.24h, 25 MG PO BID, TAB 12/14/13 Levothyroxine Sodium (Levothyroxine Sodium) 25 Mcg Tablet, 25 MCG PO ACB 12/14/13 Atorvastatin Calcium (Atorvastatin Calcium) 10 Mg Tablet, 10 MG PO HS 12/14/13 Omeprazole (Prilosec) 20 Mg Capsule.dr, 20 MG PO BID 06/17/11 Latanoprost (Xalatan) 2.5 Ml Drops, 1 DROP OP DAILY 01/15/11 Aspirin (Aspir 81) 81 Mg Tablet.dr, 81 MG PO DAILY 04/13/08 Allergies: Coded Allergies: morphine (Verified Allergy, Intermediate, ITCHING,HOT, 06/17/16) propoxyphene HCl (Verified Allergy, Unknown, 06/17/16) codeine (Unverified Adverse Reaction, Intermediate, VOMITING, 06/17/16) hydrocodone (Verified Adverse Reaction, Intermediate, VOMITING, 06/17/16) meperidine (Verified Adverse Reaction, Intermediate, VOMITING, 06/17/16) oxycodone (Unverified Adverse Reaction, Unknown, CONFUSION, 06/17/16) Family History Family History: unkown at this time Social History Does patient use chewing tobac: No Substance Use Type: does not use Alcohol Intake: occasionally Current Occupational Status: retired Advance Directives: Yes DPOA for Healthcare Only (Isaura, daughter) Social History Comments 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 no tob, no alcohol highly functioning Review of Systems All Other Systems All Other Systems: Reviewed (remainder of 10-point ROS Neg.) Comments The patient denies headache, change in vision, no double vision, no change in hearing, no neck pain, the patient has some residual facial pain from her initial fall, the patient denies any chest pain, denies any heart palpitations, no PND, orthopnea, but the patient to denies abdominal pain, no nausea or vomiting, patient denies incontinence or change in bowel or bladder, the patient has some injury or bruising to her lower extremities bilaterally, the patient denies any focal neurological complaints, specifically only of the weakness and inability to bear weight which occurred somewhat suddenly this afternoon, a 10 point review systems is otherwise negative except for outlined above Physical Exam General General Nourishment: well nourished, well developed, thin, apparent age, adult General Body Habitus: well groomed Vital Signs Vital Signs Date Time Temp Pulse Resp B/P Pulse Ox O2 Delivery O2 Flow Rate FiO2 06/24/16 00:25 66 16 06/24/16 00:20 97.6 165/69 93 Room Air Height (Feet): 5 Height (Inches): 3.00 Telemetry Rhythm: Sinus Rhythm Eyes Brief: FOUND: EOMI, NOT FOUND: PERRL, scleral icterus Comments residule ecchymosis to face primarily around lips and lower face. Neck Brief: FOUND: midline, NOT FOUND: JVD, nuchal rigidity, other, spasm, tenderness, tracheal deviation Respiratory Brief: FOUND: clear all epps, equal bilaterally, symmetrical, NOT FOUND: other, rales, spasm, tenderness, wheezes Cardiovascular (brief) Cardiac Brief: FOUND: regular rate, regular rhythm, NOT FOUND: click, gallop, murmur, other, pedal edema, peripheral edema, rub Abdomen (brief) Abdominal Brief: FOUND: BS normo active x4, soft, NOT FOUND: distended, other, tender Musculoskeletal (brief) Musculoskeletal Brief: NOT FOUND: deformity, extremities move equally, loss of motion, other, spasm, tenderness Integumentary (brief) Integumentary Brief: FOUND: dry, pink, warm Neurologic (brief) Comments CN 2 through 12 intact easily (appreciate brusing) Strength upper extremity 4plus/5 symetrical strength lower extgremity 4/5 symetrical sensory to light touch intact thorughout (based on patient's history would have anticipated more weakness than demonstrated) not able to effectively demosntrate cerebellar examination Neurologic RN Documented GCS Eye Opening: Verbal: Motor: Total: Psychiatric (brief) FOUND: alert, attentive, normal affect, oriented Laboratory Laboratory Tests Test 06/23/16 21:35 06/23/16 22:59 White Blood Count 7.6T/MM3 Red Blood Count 3.96M/MM3 Hemoglobin 12.6GM/DL Hematocrit 39.1% Mean Corpuscular Volume 98.7UM3 Mean Corpuscular Hemoglobin 31.8UUG Mean Corpuscular Hemoglobin Concent 32.2GM/DL RDW Standard Deviation 47.2FL Platelet Count 125T/MM3 Mean Platelet Volume 12.7UM3 Immature Granulocyte % (Auto) 0.0% Neutrophils (%) (Auto) 47.0% Lymphocytes (%) (Auto) 37.2% Monocytes (%) (Auto) 13.9% Eosinophils (%) (Auto) 1.6% Basophils (%) (Auto) 0.3% Absolute Immature Granulocyte (auto 0.00T/MM3 Absolute Neutrophils (auto) 3.6T/MM3 Absolute Lymphocytes (auto) 2.8T/MM3 Absolute Monocytes (auto) 1.1T/MM3 Absolute Eosinophils (auto) 0.1T/MM3 Absolute Basophils (auto) 0.0T/MM3 Turbidity < 20 Sodium Level 136MEQ/L Potassium Level 4.6MEQ/L Chloride Level 100MEQ/L Carbon Dioxide Level 30MEQ/L Anion Gap 6MEQ/L Blood Urea Nitrogen 17.0MG/DL Creatinine 0.6MG/DL Glomerular Filtration Rate Calc 95 BUN/Creatinine Ratio 28RATIO Glucose Level 106MG/DL Calculated Osmolality 264MOSM/KG Calcium Level 9.5MG/DL Phosphorus Level 4.2MG/DL Magnesium Level 2.2MG/DL Total Bilirubin 1.20MG/DL Icterus Index < 2 Aspartate Amino Transf (AST/SGOT) 36U/L Alanine Aminotransferase (ALT/SGPT) 33U/L Alkaline Phosphatase 123U/L Troponin I < 0.012ng/ml Total Protein 7.0G/DL Albumin 3.8G/DL Globulin 3.2G/DL Albumin/Globulin Ratio 1.2RATIO Thyroid Stimulating Hormone (TSH) 4.05MIU/L Chemistry Specimen Hemolysis 24 Urine Collection Type Cleancatch-midstream Urine Color Yellow Urine Turbidity Clear Urine pH 7.5 Urine Specific Closter <=1.005 Urine Protein Negative Urine Glucose (UA) Negative Urine Ketones Negative Urine Blood Negative Urine Nitrite Negative Urine Bilirubin Negative Urine Urobilinogen 0.2EU/DL Urine Leukocyte Esterase Negative Urinalysis Comment Microscopic not ind. Radiology CT lumbar spine negative for acute disease Assessment & Plan Assessment 1. Lower extremity weakness acute present on admission: This patient has a history of rheumatoid arthritis and fell and hit her face approximately one week ago. The patients weakness is sent in onset. not precipitated this afternoon. The CT of the lumbar spine is reassuring. At this time because of ongoing symptoms, with history of arthritis, well arrange for an MRI of the C- spine and T-spine and L-spine to be done. We need to exclude an occult fracture potentially affecting the spinal cord. Note that the patient has no upper extremity findings. This would lead away from a cervical spine injury. This is the area of most risk with a history of rheumatoid arthritis. Regardless spell complete neuroimaging of spinal cord to exclude occult injury. Well need to ask PT and OT to visit with the patient tomorrow. Consider neurological consultation if possible. Again cannot exclude the possibility of occult injury. Is reassuring that the patient has now had 3 CTs of her head which showed no acute bleeding process. If symptoms persist, if neuro imaging is negative, well need to consider an occult CVA as a possibility. This patient may have a posterior infarct resulting in ataxia. Consideration for MRI of the brain at that time would be indicated. 2. Coronary disease chronic present illness: To be aware of 3. Hypertension chronic present admission: We will monitor blood pressure, dispense is indicated 4. Gastric prophylaxis: PPI 5. DVT prophylaxis: SCD This is a challenging case. There is real concerned in regards to an occult injury. Workup as noted above. DVT Prophylaxis: SCD'S Code Status Full Code Hospital Course Summary Disclaimer The hospital course summary below is not to be considered part of the above Progress Note. TIM FITZGERALD MD 06/24/16 1622: HPI - Adult General History of Present Illness Mrs. Gomez fell 10 days ago when she attempts to turn but her nonskid shoe stayed in place. She fell forward striking her head but did not lose consciousness. This resulted in perioral swelling and. Oral bruising. Several days later maxillofacial CT of the head revealed no fractures. The patient initially describes some facial pain but subsequently developed vertiginous dizziness which has worsened progressively with development of nausea and one episode of emesis yesterday. She denies diplopia, tinnitus, or hearing loss. CT of the head (without contrast) was obtained yesterday without evidence of pathology. In recent days the patient is had increasing difficulty ambulating because her legs give out and she feels like she can't control what her legs do. She describes her legs jerking when she wants to move forward. There's been no bowel or bladder incontinence and bowel and bladder function have been normal. She's having no difficulty swallowing and speech is normal. In the ER last night a CT of the L-spine was obtained with contrast demonstrating degenerative disease at L1-L4 without cord compression. She is noted to the hospital for further evaluation because she cannot ambulate safely in the home environment. Past history, family history, social history, and review of systems are as noted by Dr. Tam with additions as noted. Review of systems is positive only for symptoms described above. Past Medical History Past Medical History Breast cancer initially diagnosed over years ago with recurrence after 22 years, managed by Dr. Fulton Glaucoma Hypothyroidism Surgical History Patient's Surgical History: Cholecystectomy Current Medications Home Meds Reported Medications Meclizine HCl (Meclizine HCl) 25 Mg Tablet, 25 MG PO BID Y for DIZZINESS Take 1 tablet, by mouth, 2 times a day. 06/23/16 [Pea Protein] No Conflict Check, 1 DOSE PO DAILY 06/17/16 Albuterol Sulfate (Ventolin HFA 90 mcg/actuation) 18 Gm Hfa.aer.ad, 1 PUFF ORAL INH Q4H Y for SHORTNESS OF AIR/WHEEZING 06/17/16 Calcium Carbonate (Calcium) 600 Mg Tablet, 600 MG PO DAILY 06/17/16 Acetaminophen (Acetaminophen Extra Strength) 500 Mg Tablet, 1-2 TAB PO PRN Y for PAIN 06/17/16 Potassium Chloride (Potassium Chloride) 20 Meq Tab.er.prt, 20 MEQ PO BID 06/17/16 Ondansetron (Ondansetron Odt) 4 Mg Tab.rapdis, 4 MG PO Q4HR Y for NAUSEA &/OR VOMITING 11/12/15 Polyvinyl Alcohol/Povidone/Pf (Refresh Classic Eye Drops) 1 Each Droperette, 1 DROP BOTH EYES DAILY, ML 11/12/15 Alprazolam (Alprazolam) 0.5 Mg Tablet, 0.25 MG PO HS Y for PRN ORDERS 08/25/15 Furosemide (Lasix) 20 Mg Tablet, 40 MG PO DAILY 04/27/15 Multivitamin (Multivitamins) 1 Each Tablet, 1 TAB PO DAILY 12/14/13 Metoprolol Succinate (Metoprolol Succinate) 50 Mg Tab.er.24h, 25 MG PO BID, TAB 12/14/13 Levothyroxine Sodium (Levothyroxine Sodium) 25 Mcg Tablet, 25 MCG PO ACB 12/14/13 Atorvastatin Calcium (Atorvastatin Calcium) 10 Mg Tablet, 10 MG PO HS 12/14/13 Omeprazole (Prilosec) 20 Mg Capsule.dr, 20 MG PO BID 06/17/11 Latanoprost (Xalatan) 2.5 Ml Drops, 1 DROP OP DAILY 01/15/11 Aspirin (Aspir 81) 81 Mg Tablet.dr, 81 MG PO DAILY 04/13/08 Allergies: Coded Allergies: morphine (Verified Allergy, Intermediate, ITCHING,HOT, 06/17/16) propoxyphene HCl (Verified Allergy, Unknown, 06/17/16) codeine (Unverified Adverse Reaction, Intermediate, VOMITING, 06/17/16) hydrocodone (Verified Adverse Reaction, Intermediate, VOMITING, 06/17/16) meperidine (Verified Adverse Reaction, Intermediate, VOMITING, 06/17/16) oxycodone (Unverified Adverse Reaction, Unknown, CONFUSION, 06/17/16) Family History Family History: Extensive coronary disease and hypertension Social History Marital Status: Advance Directives: Yes Full Code, Yes Living Will Assessment & Plan Assessment EXAM General-blood pressure this morning 146/63, patient afebrile. She is alert and cooperative and speech is fluent HEENT-right pupil 4 mm, left 2 mm, both round and react to light, EOMI, sclera anicteric, conjunctiva clear, facial structure symmetric, oropharynx is clear, the lower lip is swollen with bruising present below the lower lip and superficial ulceration in the midline of the lower lip. Neck is supple without adenopathy. Lungs-Respirations are nonlabored, breath sounds clear Cardiac-regular rhythm, S1-S2 Abd-soft, nontender, without palpable mass Ext-trace edema bilateral lower extremities Skin-facial bruising as noted above, additional bruising over the right grey; no open wounds Neuro-hearing intact to finger tip rub, anisocoria as noted above, EOMI, facial structure symmetric, tongue midline, palate elevates symmetrically, shoulder shrug symmetric. Motor tone and power grossly intact with power graded 4/5 throughout. No tremor and [id number] intact bilateral lower extremities. Sensation intact to light touch 4 extremities. Patient is not ambulated at this time as in route to MRI at time of my evaluation Psych-calm, pleasant, cooperative DX: Vertigo Ataxic gait Lower extremity weakness Probable concussion/brain contusion Hypertension History of breast cancer Coronary artery disease Anemia Glaucoma-continue home eyedrops. Patient has posttraumatic vertigo without question but has developed progressive difficulty ambulating. Imaging of the back by MRI has been scheduled and will additionally add MRI of the head. I was later notified that MRI of the brain was without acute pathology. Results were briefly discussed with Dr. Castillo who was not available to see the patient today. I suspect she has postconcussive vertigo. Scopolamine patch will be initiated in conjunction with when necessary meclizine. Dr. Castillo recommended consideration of low- dose steroids with Decadron to 4 mg twice a day and if she responds steroids can be tapered in the near future. IV fluids given yesterday without change in symptoms. Continue PT/OT. Plan/Intensity of Service Recent head CT, lumbar spine, MRI of the brain reviewed by myself. Discussed with Dr. Castillo. Dr. Tam's notes reviewed. Laboratory data reviewed. RIMA TAM MD Jun 24, 2016 04:47 TIM FITZGERALD MD Jun 24, 2016 16:22
[2016-06-24 05:37] LABS: BASOPHILS % (AUTO) 0.2 % (0-2); EOSINOPHILS # (AUTO) 0.1 T/MM3 (0-0.5); EOSINOPHILS % (AUTO) 1.2 % (0-4); HCT - HEMATOCRIT 35.2 % (36-46); HGB - HEMOGLOBIN 11.5 GM/DL (12-16); IMMATURE GRANULOCYTE # (AUTO) 0.02 T/MM3 (0.00-0.03); IMMATURE GRANULOCYTE % (AUTO) 0.2 % (0.0-0.5); LYMPHOCYTES # (AUTO) 3.2 T/MM3 (1-4.8); LYMPHOCYTES % (AUTO) 35.5 % (23-45); MEAN CORPUSCULAR HGB 32.2 UUG (26-34); MEAN CORPUSCULAR HGB CONC(MCHC 32.7 GM/DL (31-37); MEAN CORPUSCULAR VOLUME 98.6 UM3 (80-100); MEAN PLATELET VOLUME 13.3 UM3 (9.4-12.4); MONOCYTES # (AUTO) 1.3 T/MM3 (0-0.8); MONOCYTES % (AUTO) 14.6 % (0-9.0); NEUTROPHILS #(AUTO)-ABSOLUTE 4.3 T/MM3 (1.8-7.7); NEUTROPHILS % (AUTO) 48.3 % (33-66); RED BLOOD COUNT 3.57 M/MM3 (4.00-5.20)
[2016-06-24] MEDS: LEVOTHYROXINE 25 MCG TABLET PO SCH (05:38)
[2016-06-24 06:08] LABS: ANION GAP 8 MEQ/L (5-15); BUN/CREATININE RATIO 28 RATIO (6-26); CALCIUM 8.8 MG/DL (8.4-10.2); CHLORIDE 103 MEQ/L (98-107); CO2 - CARBON DIOXIDE 27 MEQ/L (22-30); CREATININE 0.6 MG/DL (0.7-1.2); GLOMERULAR FILTRATION RATE 95; GLUCOSE 87 MG/DL (65-110); POTASSIUM 3.9 MEQ/L (3.6-5); SODIUM 138 MEQ/L (134-144)
[2016-06-24 07:24] VITALS: BP 146/63; PULSE 62; RESP 16; TEMP 98; O2SAT 95
[2016-06-24 08:04] VITALS: PULSE 62; RESP 16
[2016-06-24] MEDS: METOPROLOL XL 25 MG TABLET PO SCH ×2 (08:38→17:28)
[2016-06-24] MEDS: ASPIRIN *EC* 81mg TABLET PO SCH (08:38)
[2016-06-24] MEDS ORDERED: OMEPRAZOLE 20 MG CAPSULE PO SCH (09:00)
--- NOTE | 2016-06-24 10:19 | NUR ---
Status RN reported to Dr Rodriguez PT/OT report and suggestions after working with her. Dr Rodriguez said she would look into it.
--- NOTE | 2016-06-24 10:42 | NUR ---
Status Patient resting quietly in chair. Updated she will be going to MRI around 11 and patient voiced understanding. Continues to be alert and oriented x3. Denies pain.
--- NOTE | 2016-06-24 11:15 | NUR ---
Patient Left Patient left for MRI at present time. Patient's daughter present and answered MRI questions.
[2016-06-24] MEDS ORDERED: SALINE FLUSH 10ml SYRINGE ONE (12:37)
[2016-06-24] MEDS ORDERED: GADOBUTROL 10mMol/10ml INJECTION IV ONE (12:37)
--- NOTE | 2016-06-24 14:00 | NUR ---
Patient return Patient returned from imaging at present time.
--- NOTE | 2016-06-24 14:02 | NUR ---
CM CM IN TO VISIT WITH PT. SHE IS ALERT AND ORIENTED. SHE IS ASSISTED TO BED WITH ASSIST OF 2. SHE IS INTERESTED IN [facility] V. SNF AT [facility]. CM EXPLAINS DIFFERENCES IN PROGRAMS. PT IS MADE AWARE THAT 3 OVERNIGHT STAY IS REQUIRED FOR SNF TO BE COVERED BY INSURANCE. PT VERBALIZED UNDERSTANDING. PT IS GIVEN CM CONTACT INFORMATION. Addendum: 06/24/16 at 1403 by JAY JEROME RN Amended: Links added.
--- NOTE | 2016-06-24 14:28 | DI ---
EXAM: MRI BRAIN W/WO CONTRAST COMPARISON: None available. HISTORY: ITS.REASON: vertigo, bilat leg weakness . MRI BRAIN W/WO CONTRAST: Comparisons: August 10, 2010. October 15, 2012. Technique: Multiplanar, multisequence, MR imaging of the head with and without contrast was acquired. Contrast: 6 mL of Gadavist FINDINGS: The CSF spaces are prominent likely due to to atrophy in keeping with age and is similar to the prior exam. Extensive T2/flair white matter hyperintensities are seen throughout the frontoparietal deep and periventricular white matter. These may have slightly progressed when compared to the prior exam. There is also abnormal T2/flair hyperintensity within the midbrain and sarita. Following intravenous administration of contrast, no areas of abnormal enhancement are evident. There are no areas of restricted diffusion to suggest an acute infarct. There is no evidence of an intracranial mass lesion, intracranial hemorrhage, or hydrocephalus. The visualized portions of the orbits, calvarium, paranasal sinuses, and skull base demonstrate no significant abnormality. The dunbar-white junctions are distinct. No sulcal effacement is identified. The posterior fossa and brainstem region otherwise appear unremarkable. Suprasellar cisterns are partly cisterns are intact. IMPRESSION: 1. Extensive partial deep white matter hyperintense FLAIR foci again noted which may have progressed since prior exam. This most likely represents changes of chronic microvascular ischemia. 2. Atrophy in keeping with age. 3. Otherwise unremarkable. .
--- NOTE | 2016-06-24 14:43 | DI ---
EXAM: MRI LUMBAR SPINE W/WO CONTRAST COMPARISON: None available. HISTORY: ITS.REASON: sudden lower extremity weakness after a fall hx of RA . Technique: Routine sagittal and axial sequences were obtained through the lumbar spine with and without IV contrast. 6 cc Gadavist contrast was used for the study. FINDINGS: The lumbar vertebral bodies are relatively well aligned. There may be minimal retrolisthesis of L1 on L2. There is disc space narrowing at L1-2, L2-3, and L3-4 with mild disc bulges. There is hypointense T1 and hyperintense T2 signal changes seen at the endplates at L3-4 likely representing Modic one discogenic change. There is a hypointense T1 and hypointense T2 rounded structure within the L4 vertebral body which may represent a bone island. Sagittal images through the neural foramina, shows neural foraminal narrowing at L2-3 from lateral disc bulge and facet hypertrophic change on the right side. Axial images obtained at L1-2 shows no significant spinal canal stenosis. There is minimal disc bulge flattening the anterior thecal sac. At L2-3, no significant spinal canal stenosis is identified. There is mild disc bulge flattening the thecal thecal sac. Ligamentum flavum hypertrophy is also noted. At L3-4 there is mild disc bulge flattening the thecal sac and with ligamentum flavum hypertrophy contributes to mild spinal canal narrowing. At L4-5 disc bulge and facet hypertrophic change are noted without significant spinal canal stenosis. There may be an annular tear. At L5-S1. There is disc bulge with convex mass effect and anterior spinal canal and approaches the S1 nerve roots but may not contact the nerve roots. No soft tissue abnormalities are appreciated. No abnormal enhancing lesions or masses are seen. IMPRESSION: 1. Disc space narrowing at L1-L2, L2-3, and L3-4 with mild disc bulges. There is mild spinal canal narrowing at L3-4 from disc bulge and ligamentum flavum hypertrophy. 2. Right-sided neural foraminal narrowing at L2-3 from mild lateral disc bulge and facet hypertrophic changes. It is uncertain whether the right L2 nerve root is affected. LOCATION OF DICTATION: [facility] [place] .
--- NOTE | 2016-06-24 14:59 | DI ---
EXAM: MRI CERVICAL SPINE W/WO CONTRA COMPARISON: None available. HISTORY: ITS.REASON: sudden weakness in legs after fall. history of RA . Technique: Routine sagittal and axial sequences through the cervical spine were obtained with and without contrast. 60 cc Gadavist contrast was used for this study. FINDINGS: There is disc space narrowing at C5-6 and C6-7 with disc bulge and posterior bony ridging. The posterior fossa and brainstem region and spinal cord signal appears unremarkable. There is some increased T2 signal changes seen within the sarita but was present on prior exam as well and may be related to chronic small vessel ischemic disease. Axial images obtained at C2-3, shows no significant spinal canal stenosis or neural foraminal narrowing. At C3-4, there are facet hypertrophic changes. No significant spinal canal stenosis or neural foraminal narrowing is identified. At C4-5, there is mild flattening of the anterior thecal sac. No significant neural foraminal narrowing is appreciated. At C5-6, disc bulge and posterior bony ridging flattens the anterior thecal sac and may have mild mass effect on the anterior cord. The posterior subarachnoid space is patent. At C6-7, there is mild disc bulge flattening the anterior thecal sac, but does not contact the cord. There may be some mild left-sided neural foraminal narrowing from facet and uncovertebral joint hypertrophic change. At C7-T1, no significant spinal canal stenosis or neural foraminal narrowing. There is mild disc bulge seen at T3-4. No abnormal enhancing lesions are identified. Space-occupying mass is not seen. No abnormal cord signal is appreciated. No evidence for cord contusion or other abnormality of the cord is identified. There may be some periarticular erosions at the base of the dens which may be related to patient's known rheumatoid arthritis. Fluid signal is seen at the articulation of the anterior arch of C1 and the dens. IMPRESSION: 1. At C5-6 there is disc bulge and posterior bony ridging which may have some mild flattening mass effect on the anterior cord. The posterior subarachnoid space remains patent. 2. At C6-7 there is mild disc bulge flattening the anterior thecal sac but does not contact anterior cord. 3. Arthritic changes is seen of the dens articulation with the anterior arch of C1 likely related to patient's known rheumatoid arthritis. LOCATION OF DICTATION: [facility] [place] .
--- NOTE | 2016-06-24 15:12 | DI ---
EXAM: MRI THORACIC SPINE W/WO CONTRA COMPARISON: None available. HISTORY: ITS.REASON: sudden lower extremity weakness after fall. hx of RA . Technique: Routine sequences were obtained through the thoracic spine with and without IV contrast and sagittal and axial planes. 6 cc of Gadavist contrast was used for the study. FINDINGS: The thoracic vertebral bodies are well aligned. There is loss of height of the T11 vertebral body by approximately 15%. However no marrow edema is appreciated and this is likely old. There is mild disc bulge at T3-4. Sagittal images through the neural foramina shows no significant neural foraminal narrowing. There may be mild neural foraminal narrowing at T7-8 level from lateral disc bulge, but does not appear to contact the nerve roots. No abnormal bone marrow signal changes are appreciated. No abnormal enhancing lesions identified. The spinal cord signal appears unremarkable. Axial images obtained at the level of T1-2 and T2-3 appear unremarkable without spinal canal compromise identified.. At T3-4 there is mild disc bulge flattening the anterior thecal sac, but does not contact cord. Axial images from T4-5 through T9-10 shows no significant spinal canal stenosis or neural foraminal narrowing. At T10-11 there is minimal disc bulge flattening the anterior thecal sac. T11 is intact. At T11-12 no significant spinal canal stenosis or neural foraminal narrowing. No prevertebral soft tissue abnormalities are identified. IMPRESSION: 1. Old compression deformity of the T11 total body with 15 % loss of height. However no marrow edema is identified. No acute fracture seen. 2. Minimal disc bulge at T3-4 flattening the anterior thecal sac without mass effect on the cord. 3. No neural compromise is appreciated. LOCATION OF DICTATION: [facility] – [place] .
--- NOTE | 2016-06-24 15:38 | DI ---
Indication: ITS.REASON: B/l LE weakness PROCEDURE: CT LUMBAR SPINE W/CONTRAST: Encounter: Initial Comparison: MRI lumbar spine dated June 24, 2016 Technique: Axial noncontrast CT imaging of the lumbar spine was performed with coronal and sagittal two-dimensional reformats. Automated Exposure Control and Iterative Reconstruction dose reducing techniques were utilized. FINDINGS: The alignment of the lumbar spine is stable. No acute compression fracture seen. Scoliosis and degenerative change with moderate degenerative disk disease at L1-L2, L2-L3 and L3-L4. Paraspinal soft tissues are unremarkable. No acute displaced fracture seen. Bony demineralization limits detection of nondisplaced fractures. Impression: No acute fracture seen. There is a preliminary report by virtual radiologic. .
[2016-06-24 16:00] VITALS: BP 175/72; PULSE 70; RESP 18; TEMP 97.3; O2SAT 95
--- NOTE | 2016-06-24 16:19 | NUR ---
IRU referral received. Discussed with therapy participation expectation with patient. She advises has been in IRU after pelvic fractures and is willing and motivated to participate to return to prior level of function. Discharge pending medical evaluation. Will review with Dr. Crain IRU Wire Walker when anticipated discharge date is available.
[2016-06-24] MEDS: OMEPRAZOLE 20 MG CAPSULE PO SCH (17:28)
[2016-06-24] MEDS: DEXAMETHASONE 4 MG TABLET PO SCH (17:28)
[2016-06-24] MEDS: SCOPOLAMINE 1.5 MG PATCH TD SCH (17:28)
--- NOTE | 2016-06-24 19:25 | NUR ---
Status Patient has been alert and oriented today. Requires 1-2 people for transfers and ambulation. Has been continent this shift. Numerous bruises throughout body though patient has denied pain throughout shift. Able to use call light to express needs. Alarms in use for patient safety.
[2016-06-24] MEDS: ATORVASTATIN 10 MG TABLET PO SCH (20:34)
[2016-06-25] VITALS: BP 147/70; PULSE 66; RESP 18; TEMP 97.5; O2SAT 96
--- NOTE | 2016-06-25 04:50 | NUR ---
SUMMARY PT ALERT AND ORIENTED X4, REPORTS PAIN IN HER SHOULDERS, REQUESTED TYLENOL. REPORTED ALLERGY TO HYDROCODONE, TELE HOSPITALIST NOTIFIED FOR DC OF MED. PT SLEPT MOST OF NIGHT. NO COMPLAINTS. IV LOCK RT WRIST.
[2016-06-25 05:34] LABS: HCT - HEMATOCRIT 35.9 % (36-46); HGB - HEMOGLOBIN 11.8 GM/DL (12-16); IMMATURE GRANULOCYTE # (AUTO) 0.01 T/MM3 (0.00-0.03); IMMATURE GRANULOCYTE % (AUTO) 0.2 % (0.0-0.5); LYMPHOCYTES # (AUTO) 1.6 T/MM3 (1-4.8); LYMPHOCYTES % (AUTO) 28.8 % (23-45); MEAN CORPUSCULAR HGB 32.1 UUG (26-34); MEAN CORPUSCULAR HGB CONC(MCHC 32.9 GM/DL (31-37); MEAN CORPUSCULAR VOLUME 97.6 UM3 (80-100); MEAN PLATELET VOLUME 13.1 UM3 (9.4-12.4); MONOCYTES # (AUTO) 0.3 T/MM3 (0-0.8); NEUTROPHILS #(AUTO)-ABSOLUTE 3.7 T/MM3 (1.8-7.7); RED BLOOD COUNT 3.68 M/MM3 (4.00-5.20); WBC - WHITE BLOOD COUNT 5.6 T/MM3 (4.5-11.0)
[2016-06-25 05:47] LABS: ANION GAP 8 MEQ/L (5-15); BUN/CREATININE RATIO 30 RATIO (6-26); C-REACTIVE PROTEIN 12.2 MG/L (0-9); CALCIUM 8.6 MG/DL (8.4-10.2); CHLORIDE 102 MEQ/L (98-107); CO2 - CARBON DIOXIDE 27 MEQ/L (22-30); CREATININE 0.6 MG/DL (0.7-1.2); GLOMERULAR FILTRATION RATE 95; GLUCOSE 142 MG/DL (65-110); POTASSIUM 4.5 MEQ/L (3.6-5); SODIUM 137 MEQ/L (134-144)
[2016-06-25] MEDS: LEVOTHYROXINE 25 MCG TABLET PO SCH (06:44)
[2016-06-25] MEDS: OMEPRAZOLE 20 MG CAPSULE PO SCH ×2 (06:45→17:00)
[2016-06-25 07:38] VITALS: BP 150/70; PULSE 61; RESP 18; TEMP 97.5; O2SAT 97
[2016-06-25 07:39] VITALS: PULSE 61; RESP 18
[2016-06-25] MEDS: METOPROLOL XL 25 MG TABLET PO SCH ×2 (09:13→21:37)
[2016-06-25] MEDS: ASPIRIN *EC* 81mg TABLET PO SCH (09:13)
[2016-06-25] MEDS: DEXAMETHASONE 4 MG TABLET PO SCH ×2 (09:13→14:48)
[2016-06-25] MEDS: LATANOPROST 0.005% EYE DROPS 2.5 ML BOTTLE BOTH EYES SCH (09:14)
[2016-06-25] MEDS ORDERED: FLUTICASONE/SALMETEROL 250/50 DISK INHALER ORAL INH SCH (10:38)
[2016-06-25] MEDS ORDERED: POLYETHYL.GLYCOL 3350 PACKET 17gm PO PRN (12:45)
[2016-06-25 16:28] VITALS: BP 153/65; PULSE 64; RESP 18; TEMP 97.4; O2SAT 95
--- NOTE | 2016-06-25 16:37 | PNPDOC ---
Subjective Date DATE: 06/25/16 TIME: 16:18 Subjective Mrs. Gomez reports that her right arm has been shaky at times today, "jerky". She's been able to take 3-4 steps after instructions by physical therapy and did more today than she thought should be able to do. She still has trouble stepping forward indicating that her legs just don't move when she wants them to. She denies any vertigo this morning which she attributes to wearing scopolamine patch. Otherwise she complains of some mild dyspnea indicating she typically uses a Ventolin inhaler about twice a day at home. She hasn't been wheezing and denied chest pain or palpitations. She denied nausea or vomiting but hasn't had a bowel movement today. Her appetite is good and she is having no pain. Objective Vital Signs Vital signs Vital Signs Date Time Temp Pulse Resp B/P Pulse Ox O2 Delivery O2 Flow Rate FiO2 06/25/16 07:39 61 18 06/25/16 07:38 97.5 150/70 97 Room Air EXAM General-NAD, alert, fluent speech HEENT-EOMI, conjunctiva clear, persistent swelling with superficial ulceration mid-lower lip Lungs-respirations nonlabored, good airflow, inspiratory/expiratory crackles at the left base Cardiac-regular rhythm, S1-S2 Abd-soft, nontender, bowel sounds present Ext-without edema Neuro-moving all extremities well in seated position, proximal power decreased relative to distal power, cderxe-dkxi-vzybyx/kwuj-stsb-mpco preserved. No tremor or cogwheeling present right upper extremity Psych-pleasant, cooperative, euthymic Telemetry Rhythm: Sinus Rhythm Height (Feet): 5 Height (Inches): 3.00 Weight (Kilograms): 55.900 Laboratory Laboratory Laboratory Tests 06/23/16 21:35 06/24/16 05:02 06/25/16 04:49 Laboratory Tests 06/23/16 21:35 06/24/16 05:02 06/25/16 04:49 CRP 12.2 Radiology Cervical and thoracic spine MRIs reviewed yesterday and reports finalized demonstrating degenerative changes with a disc bulge at C5-6 with mild flattening on the anterior cord, disc bulge at C6-7 not impacting the cord, arthritic change at the dens likely related to rheumatoid arthritis, 15% old compression deformity at T11, minimal disc bulge at T3-4 with flattening of the thecal sac without compression. No neural compromise was reported. 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 Patient was able to ambulate 68 feet with physical therapy this morning. Continue current treatment with plans to decrease steroid dose in 2-3 days. Being evaluated for IRU. Probable postconcussive injury/vertigo. Blood pressure borderline with addition of steroids, continue to monitor on home regimen. Ventolin resumed every 4 hours when necessary for chronic dyspnea attributed to prior lung disease/breast cancer. Minor hyperglycemia present this morning, consistent with steroids. Does not require intervention. DDD present at multiple levels but does not appear to be causing compromise or contributing to current symptoms. Plan/Intensity of Service MRIs of his cervical and thoracic spine reports reviewed, laboratory data reviewed. Therapy notes reviewed, discussed with nursing. Code Status Full Code Hospital Course Summary Disclaimer The hospital course summary below is not to be considered part of the above Progress Note. Hospital Course Summary 06/24 Aggressive lower extremity weakness and difficulty ambulating after a fall with negative head CT. No upper extremity weakness. Extensive imaging ordered. Patient has probable posttraumatic vertigo but has developed progressive difficulty ambulating. Imaging of the back by MRI has been scheduled and will additionally add MRI of the head. I was later notified that MRI of the brain was without acute pathology. Results were briefly discussed with Dr. Castillo who was not available to see the patient today. I suspect she has postconcussive vertigo. Scopolamine patch will be initiated in conjunction with when necessary meclizine. Dr. Castillo recommended consideration of low-dose steroids with Decadron to 4 mg twice a day and if she responds steroids can be tapered in the near future. IV fluids given yesterday without change in symptoms. Continue PT/OT. 06/25 Vertigo much better today following initiation of scopolamine patch and low- dose Decadron. Patient was able to ambulate 68 feet with physical therapy this morning. Continue current treatment with plans to decrease steroid dose in 2-3 days. Being evaluated for IRU. Probable postconcussive injury/vertigo. Blood pressure borderline with addition of steroids, continue to monitor on home regimen. Ventolin resumed every 4 hours when necessary for chronic dyspnea attributed to prior lung disease/breast cancer. Minor hyperglycemia present this morning, consistent with steroids. Does not require intervention. DDD present at multiple levels but does not appear to be causing compromise or contributing to current symptoms. TIM FITZGERALD MD Jun 25, 2016 16:23
[2016-06-25] MEDS ORDERED: ALBUTEROL INH.SOLN. 2.5mg/3ml (0.083%) Neb. AEROSOL PRN (19:00)
--- NOTE | 2016-06-25 20:07 | NUR ---
SUMMARY VS STABLE ON RA. TELE DC'D PER DO. PT CONTINUES TO HAVE DIFFICULTY AMBULATING. DIFFICULTY MOVING LEGS. ASSISTED TO BR WITH 2 ASSIST, WALKER AND GB. PT DENIES CHEST PAIN AND SOA.
[2016-06-25 20:31] VITALS: PULSE 64; RESP 18
[2016-06-25] MEDS: ATORVASTATIN 10 MG TABLET PO SCH (21:36)
[2016-06-25 23:21] VITALS: BP 150/66; PULSE 63; RESP 16; TEMP 96; O2SAT 97
[2016-06-26] VITALS (7 sets, daily range): BP systolic 143–156; BP diastolic 68–79; PULSE 61–69; RESP 16–18; TEMP 96.8–98.1; O2SAT 95–97
[2016-06-26] MEDS: OMEPRAZOLE 20 MG CAPSULE PO SCH ×2 (06:51→17:18)
[2016-06-26] MEDS: LEVOTHYROXINE 25 MCG TABLET PO SCH (06:51)
--- NOTE | 2016-06-26 07:35 | NUR ---
pt did well overnight. She woke up at 0400 to void and was confused when she initially woke up but once she was more awake she was a/o. PT denies pain but was nauseas and got one dose of IV zofran. PT self turned overnight and walked to the toilet to void as needed and high stepped going to the restroom using her walker. VSS.
[2016-06-26] MEDS: DEXAMETHASONE 4 MG TABLET PO SCH ×2 (08:57→14:21)
[2016-06-26] MEDS: ASPIRIN *EC* 81mg TABLET PO SCH (08:57)
[2016-06-26] MEDS: METOPROLOL XL 25 MG TABLET PO SCH ×2 (08:57→17:18)
[2016-06-26] MEDS: LATANOPROST 0.005% EYE DROPS 2.5 ML BOTTLE BOTH EYES SCH (08:58)
--- NOTE | 2016-06-26 14:03 | NUR ---
SHIFT SUMMARY PT UP IN CHAIR EATING WITHOUT ASSISTANCE IS AAOX3 DENIES PAIN OR NEEDS AT THIS TIME CALL LIGHT AND WATER WITHIN REACH. ASSESSMENT COMPLETED DOCUMENTED. DENIES PAIN, DENIES NAUSEA. WALKED IN HALLWAY WITH RN, GAIT BELT AND WALKER FOR 8MIN. PT DID BECOME WEAK AND USED A HIGH STEPPING METHOD.
[2016-06-26] MEDS ORDERED: ALBUTEROL HFA INHALER 8gm ORAL INH PRN (14:15)
[2016-06-26] MEDS ORDERED: MILK OF MAGNESIA 30 ML SUSP PO PRN (14:15)
--- NOTE | 2016-06-26 14:16 | PNPDOC ---
Subjective Date DATE: 06/26/16 TIME: 14:03 Subjective Mrs. Gomez complains that she can't raise her feet off the ground when she tries to walk unless she "high steps". Even then ambulatory duration is very limited. She reports minimal vertigo and minimal nausea with current medications indicating that both are significantly improved. She continues to have mild dyspnea and cough which are baseline. She complains of constipation but reports that her appetite is good and that she is eating well. Objective Vital Signs Vital signs Vital Signs Date Time Temp Pulse Resp B/P Pulse Ox O2 Delivery O2 Flow Rate FiO2 06/26/16 10:54 66 06/26/16 10:54 12 96 06/26/16 08:03 96.8 143/68 Room Air EXAM General-NAD, alert, cooperative, fluent speech HEENT-conjunctiva clear, sclera anicteric, decreased edema lower lip with resolving central ulceration Lungs-respirations are nonlabored, decreased breath sounds at the left base with faint crackles Cardiac-regular rhythm, S1-S2 Abd-soft, nontender, bowel sounds present Ext-trace edema bilateral lower extremities Extensive bruising right grey Neuro-no tremor present Telemetry Rhythm: Sinus Rhythm Height (Feet): 5 Height (Inches): 3.00 Weight (Kilograms): 56.300 Laboratory Laboratory Laboratory Tests 06/25/16 04:49 Laboratory Tests 06/25/16 04:49 Assessment & Plan Assessment Vertigo Ataxic gait Lower extremity weakness Probable concussion/brain contusion Hypertension History of breast cancer Coronary artery disease Anemia-normocytic, minor Glaucoma-continue home eyedrops 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 Vertigo/nausea controlled with scopolamine and low-dose Decadron. DDD present at multiple levels but does not appear to be causing compromise or contributing to current symptoms. Will ask Dr. Castillo to evaluate formally when available tomorrow. IRU evaluation pending. Continue to monitor blood pressure, borderline with steroids. Respiratory symptoms stable-Ventolin HFA reordered again today. Mild hyperglycemia present with steroids, reassess electrolytes in the morning. Senokot added to MiraLAX to minimize constipation. Plan/Intensity of Service Laboratory data ordered, medications modified DVT Prophylaxis: SCD'S Code Status Full Code Hospital Course Summary Disclaimer The hospital course summary below is not to be considered part of the above Progress Note. Hospital Course Summary 06/24 Aggressive lower extremity weakness and difficulty ambulating after a fall with negative head CT. No upper extremity weakness. Extensive imaging ordered. Patient has probable posttraumatic vertigo but has developed progressive difficulty ambulating. Imaging of the back by MRI has been scheduled and will additionally add MRI of the head. I was later notified that MRI of the brain was without acute pathology. Results were briefly discussed with Dr. Castillo who was not available to see the patient today. I suspect she has postconcussive vertigo. Scopolamine patch will be initiated in conjunction with when necessary meclizine. Dr. Castillo recommended consideration of low-dose steroids with Decadron to 4 mg twice a day and if she responds steroids can be tapered in the near future. IV fluids given yesterday without change in symptoms. Continue PT/OT. 06/25 Vertigo much better today following initiation of scopolamine patch and low- dose Decadron. Patient was able to ambulate 68 feet with physical therapy this morning. Continue current treatment with plans to decrease steroid dose in 2-3 days. Being evaluated for IRU. Probable postconcussive injury/vertigo. Blood pressure borderline with addition of steroids, continue to monitor on home regimen. Ventolin resumed every 4 hours when necessary for chronic dyspnea attributed to prior lung disease/breast cancer. Minor hyperglycemia present this morning, consistent with steroids. Does not require intervention. DDD present at multiple levels but does not appear to be causing compromise or contributing to current symptoms. 06/26 Symptoms stable but continues to have difficulty ambulating. Vertigo/nausea controlled with scopolamine and low-dose Decadron. DDD present at multiple levels but does not appear to be causing compromise or contributing to current symptoms. Will ask Dr. Castillo to evaluate formally when available tomorrow. IRU evaluation pending. Continue to monitor blood pressure, borderline with steroids. Respiratory symptoms stable-Ventolin HFA reordered again today. Mild hyperglycemia present with steroids, reassess electrolytes in the morning. TIM FITZGERALD MD Jun 26, 2016 14:07
--- NOTE | 2016-06-26 15:00 | NUR ---
Care This RN received verbal report from Leilani PIRES. Assumed care of patient.
--- NOTE | 2016-06-26 18:22 | NUR ---
Status Patient up to chair for supper. Requires 1 person assist for ambulation. Patient continues to use gait belt and walker well. Denies pain when asked. Good appetite with dinner. Alarms in use for patient safety. Call light within reach.
[2016-06-26] MEDS: ATORVASTATIN 10 MG TABLET PO SCH (21:13)
[2016-06-26] MEDS: SENNA + DOCUSATE TAB PO SCH (21:13)
--- NOTE | 2016-06-26 21:59 | NUR ---
Ambulation Pt ambulated twice this evening to BR with GB, walker, and 1 assist. Slight dizziness with first trip. Use high stepping method except on way back from second trip where her gait was more normal. Will continue to monitor.
--- NOTE | 2016-06-26 22:26 | NUR ---
Chart Check 24 hour chart check completed
[2016-06-26] MEDS: MECLIZINE 25 MG TABLET PO PRN (23:44)
[2016-06-27] VITALS (11 sets, daily range): BP systolic 142–185; BP diastolic 65–80; PULSE 59–67; RESP 16–18; TEMP 96–97.9; O2SAT 94–98
[2016-06-27 05:28] LABS: ANION GAP 7 MEQ/L (5-15); BUN/CREATININE RATIO 35 RATIO (6-26); CALCIUM 8.9 MG/DL (8.4-10.2); CHLORIDE 101 MEQ/L (98-107); CO2 - CARBON DIOXIDE 26 MEQ/L (22-30); CREATININE 0.6 MG/DL (0.7-1.2); GLOMERULAR FILTRATION RATE 95; GLUCOSE 136 MG/DL (65-110); POTASSIUM 4.3 MEQ/L (3.6-5); SODIUM 134 MEQ/L (134-144)
[2016-06-27] MEDS: LEVOTHYROXINE 25 MCG TABLET PO SCH (06:10)
[2016-06-27] MEDS: MECLIZINE 25 MG TABLET PO PRN ×2 (06:10→20:49)
[2016-06-27] MEDS: OMEPRAZOLE 20 MG CAPSULE PO SCH ×2 (06:10→16:33)
--- NOTE | 2016-06-27 06:53 | NUR ---
Status Pt up to BR at approx 0400 and stated that she had extreme dizziness after getting back into bed. Gave Antivert twice during the night for dizziness. She stated that it was very helpful. Pt had jerky movements while ambulating. Will continue to monitor.
[2016-06-27] MEDS: SENNA + DOCUSATE TAB PO SCH ×2 (09:14→20:49)
[2016-06-27] MEDS: LATANOPROST 0.005% EYE DROPS 2.5 ML BOTTLE BOTH EYES SCH (09:14)
[2016-06-27] MEDS: METOPROLOL XL 25 MG TABLET PO SCH ×2 (09:14→17:48)
[2016-06-27] MEDS: DEXAMETHASONE 4 MG TABLET PO SCH ×2 (09:14→14:42)
[2016-06-27] MEDS: POLYETHYL.GLYCOL 3350 PACKET 17gm PO SCH (09:14)
[2016-06-27] MEDS: ASPIRIN *EC* 81mg TABLET PO SCH (09:14)
--- NOTE | 2016-06-27 10:23 | CONSF ---
DATE OF CONSULTATION 06/27/[address] Rodriguez CHIEF COMPLAINT The patient's chief complaint is difficulty walking. HISTORY OF PRESENT ILLNESS The patient is an 85-year-old female with history of rheumatoid arthritis, hypertension, coronary artery disease and dyslipidemia. The patient had a fall two weeks ago during which she tripped and fell face down on the ground. She injured her face and jaw at that time. She felt a little bit disoriented initially and her symptoms gradually improved over time. Patient was able to move and walk after the fall for about 10 days and then she started having difficulty walking and standing. This happened about four days ago and it has been progressing since. The patient is having difficulty standing and initiating movement of the legs. She has no problem with her arms except for the arthritis. The patient had multiple images of the brain and spine including MRI and CT of the brain that showed no acute lesion, no bleed and no acute stroke. She also had MRI of the lumbar, thoracic and cervical spine that showed mild to moderate degenerative disc disease and arthritic changes with no significant spinal or foraminal stenosis. Her lab workup has been unremarkable overall. She has had some mild dehydration. The patient was started on Decadron 4 mg p.o. b.i.d. three days ago. This has not helped with her symptoms at all so far. The patient denies having any headache. She has a history of progressing neuropathy for many years and this has not changed significantly recently. She denies having any significant neck or lower back pain. The patient continues to have difficulty standing and coordinating her leg movement to walk. PHYSICAL EXAMINATION The patient was awake, alert, oriented x 3. Pupils were reactive and different in size which has been chronic in nature due to surgery for cataract. The patient also has peripheral vision loss that she was not aware of. The facial motor and sensory were symmetrical. Her motor examination in the upper extremities was 4+ to 5-/5. This was affected mainly by arthritic changes in the hands and shoulders. Motor examination on the lower extremities was 4 to 4+/5, affected also by pain in the legs and arthritis. Sensory examination was diminished for light touch, pinprick in the lower extremities up to the thighs and in the hands. Deep tendon reflexes were 2-/4. Plantar reflexes were downgoing bilaterally. Coordination for [id number] was steady except for difficulty moving her shoulder. There was no significant dysmetria or cerebellar dysfunction. GAIT: Patient was able to stand on her feet with assistance but she could not initiate movement of the legs bilaterally. ASSESSMENT 1. Fast progressing gait and coordination problem. This can be a manifestation of frontal lobe gait disorder related to her recent head injury and trauma. 2. Other consideration includes increased intracranial pressure and hydrocephalus which can also cause difficulty initiating gait with magnetic gait and coordination problem. 3. There is no evidence of spinal cord injury or spinal stenosis based on the MRI of the cervical, thoracic and lumbar spine to explain the patient's gait issues. PLAN 1. Continue Decadron 4 mg p.o. b.i.d. and titrate down gradually to 1 mg p.o. b.i.d. 2. Continue physical and occupational therapy to help patient with gait and coordinating her movements. 3. Consider having a spinal tap to check for increased intracranial pressure and potential hydrocephalus. 4. Consider repeating the MRI of the brain if the patient's condition keeps worsening. Thank you. FÁTIMA
--- NOTE | 2016-06-27 11:36 | NUR ---
DEANA CM IN TO VISIT WITH PT. SHE IS ALERT AND ORIENTED. SHE IS MADE AWARE THAT SHE HAS BEEN ACCEPTED TO IRU. IT IS HER PLAN TO DC THERE. SHE IS MADE AWARE THAT DC IS POSSIBLE IN THE NEXT 1-[address] FITZGERALD IS MADE AWARE THAT PT HAS BEEN ACCEPTED TO IRU.
[2016-06-27 14:55] LABS: INR 0.99 (0.76-1.04); PROTHROMBIN TIME 10.8 SEC (9.31-12.49)
[2016-06-27] MEDS ORDERED: SCOPOLAMINE PATCH REMOVAL TD SCH (16:15)
[2016-06-27] MEDS: SCOPOLAMINE 1.5 MG PATCH TD SCH (16:33)
--- NOTE | 2016-06-27 17:34 | DI ---
INDICATION: LEG WEAKNESS Ordering physician:TIM FITZGERALD MD Procedure:LUMBAR PUNCTURE (RADIOLOGY) LUMBAR PUNCTURE: The procedure and purpose, including the benefits, risks, and alternatives were explained in detail to the patient. All of her questions were answered. They were given the option to decline the procedure They stated that they understood and wished to proceed. A pre-procedural timeout was done to verify the correct patient and proper procedure. Using sterile technique, local Xylocaine anesthesia, and fluoroscopic guidance throughout, a 20 G spinal needle was advanced from a posterior approach into the subarachnoid space at the L2-3 level. A fluoroscopic image was then obtained and archived. Removal of the stylet showed clear colorless CSF. Opening pressure was 21 centimeters of water. Then 20 cc of CSF was taken off and sent to the lab for the requested studies. The needle was removed. The procedure was completed without complication. Following this, the patient was transferred to her room and given discharge instructions. Impression: 1. Successful lumbar puncture performed with 20 cc of fluid removed and sent to lab. 2. Opening pressure of 21 cm of water. Fluoroscopy dose: 2.48 mGy (Cumulative air kerma) Rodolfo Lind RPA/CARLINE performed this under my personal supervision. .
[2016-06-27 17:47] LABS: GLUCOSE,CSF 82 MG/DL (40-70); PROTEIN,CSF 52 MG/DL (12-60)
[2016-06-27 18:15] LABS: COLOR,CSF COLORLESS; LYMPHOCYTES,CSF 100 %
[2016-06-27 18:16] LABS: BASOPHILS,CSF 0 %; EOSINOPHILS,CSF 0 %; MONOCYTES,CSF 0 %; NEUTROPHILS,CSF 0 %
--- NOTE | 2016-06-27 18:37 | NUR ---
STATUS PT IS A&OX3. PT IS POST SPINAL TAB, LAYING FLAT. JUST GOT BACK TO BED AFTER USING THE BATHROOM. HAS A BANDAID TO HER BACK, WHICH IS C/D/I. PT IS ON RA. DENIES SOA. WALKING SEEMS TO HAVE IMPROVED SLIGHTLY SINCE THIS AM. PT HAS HAD SEVERAL BM'S SINCE GIVEN MOM THIS AM. BED ALARM ON, BED FLAT.
[2016-06-27] MEDS ORDERED: CALCIUM CARBONATE 750mg Chewable TAB PO PRN (20:00)
--- NOTE | 2016-06-27 20:12 | PNPDOC ---
Subjective Date DATE: 06/27/16 TIME: 19:56 Subjective Mrs. Gomez reported recurrent vertigo this morning without nausea. She advised me that her children are worried about her ears as the cause of symptoms. She continues to have trouble initiating steps telling me she can't "tell her leg to move forward". Chronic dyspnea and nonproductive cough for unchanged from baseline and she reports minor heartburn overnight. Objective Vital Signs Vital signs Vital Signs Date Time Temp Pulse Resp B/P Pulse Ox O2 Delivery O2 Flow Rate FiO2 06/27/16 18:53 59 18 155/65 94 Room Air 06/27/16 17:38 97.9 EXAM General-NAD, alert, fluent speech HEENT-conjunctiva clear, minor cerumen accumulation in the left external auditory canal not occluding visualization of the tympanic membrane which is unremarkable, right external canal and tympanic membrane both unremarkable. Lungs-Respirations are nonlabored with good airflow other than minor crackles at the left base Cardiac-regular rhythm, S1-S2 Abd-soft, nontender, bowel sounds present Ext-trace edema Telemetry Rhythm: Sinus Rhythm Height (Feet): 5 Height (Inches): 3.00 Weight (Kilograms): 56.900 Laboratory Laboratory Laboratory Tests 06/27/16 04:47 INR 0.99 CSF-1 red cell, 4 white cells-all lymphocytes, glucose 82, protein 52; no organisms seen on Gram stain. IgG synthesis pending. 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 Plan transfer to rehabilitation tomorrow. Vertigo/nausea generally controlled with scopolamine and low-dose Decadron. Discussed with Dr. Castillo who suggested frontal lobe gait disorder due to recent head injury and also recommended lumbar puncture for evaluation of opening pressure. LP done this afternoon-opening pressure 21 cm H2O, 20 cc fluid removed and sent for studies. Can add cytology to CSF studies if needed. Relative excess in lymphocytes present given only 1 red cell but total number quite low. DDD present at multiple levels but does not appear to be causing compromise or contributing to current symptoms. Tums added for indigestion. Constipation resolved. Continue albuterol-use of metered-dose inhaler discussed with nursing as patient prefers it to nebulized treatments. Given persistent symptoms - check chest x-ray in morning. Plan/Intensity of Service Discussed with Dr. Castillo, Dr. Cordoba, and blood bank laboratory technician. Lumbar puncture obtained-report reviewed. Laboratory data reviewed. Chest x-ray ordered. Discussed with nursing. Code Status Full Code Hospital Course Summary Disclaimer The hospital course summary below is not to be considered part of the above Progress Note. Hospital Course Summary 06/24 Aggressive lower extremity weakness and difficulty ambulating after a fall with negative head CT. No upper extremity weakness. Extensive imaging ordered. Patient has probable posttraumatic vertigo but has developed progressive difficulty ambulating. Imaging of the back by MRI has been scheduled and will additionally add MRI of the head. I was later notified that MRI of the brain was without acute pathology. Results were briefly discussed with Dr. Castillo who was not available to see the patient today. I suspect she has postconcussive vertigo. Scopolamine patch will be initiated in conjunction with when necessary meclizine. Dr. Castillo recommended consideration of low-dose steroids with Decadron to 4 mg twice a day and if she responds steroids can be tapered in the near future. IV fluids given yesterday without change in symptoms. Continue PT/OT. 06/25 Vertigo much better today following initiation of scopolamine patch and low- dose Decadron. Patient was able to ambulate 68 feet with physical therapy this morning. Continue current treatment with plans to decrease steroid dose in 2-3 days. Being evaluated for IRU. Probable postconcussive injury/vertigo. Blood pressure borderline with addition of steroids, continue to monitor on home regimen. Ventolin resumed every 4 hours when necessary for chronic dyspnea attributed to prior lung disease/breast cancer. Minor hyperglycemia present this morning, consistent with steroids. Does not require intervention. DDD present at multiple levels but does not appear to be causing compromise or contributing to current symptoms. 06/26 Symptoms stable but continues to have difficulty ambulating. Vertigo/nausea controlled with scopolamine and low-dose Decadron. DDD present at multiple levels but does not appear to be causing compromise or contributing to current symptoms. Will ask Dr. Castillo to evaluate formally when available tomorrow. IRU evaluation pending. Continue to monitor blood pressure, borderline with steroids. Respiratory symptoms stable-Ventolin HFA reordered again today. Mild hyperglycemia present with steroids, reassess electrolytes in the morning. 06/27 Symptoms stable but continues to have difficulty ambulating. Plan transfer to rehabilitation tomorrow. Vertigo/nausea generally controlled with scopolamine and low-dose Decadron. Discussed with Dr. Castillo who suggested frontal lobe gait disorder due to recent head injury and also recommended lumbar puncture for evaluation of opening pressure. LP done this afternoon-opening pressure 21 cm H2O, 20 cc fluid removed and sent for studies. Can add cytology to CSF studies if needed. Relative excess in lymphocytes present given only 1 red cell but total number quite low. DDD present at multiple levels but does not appear to be causing compromise or contributing to current symptoms. Tums added for indigestion. Constipation resolved. Continue albuterol-use of metered-dose inhaler discussed with nursing as patient prefers it to nebulized treatments. Given persistent symptoms - check chest x-ray in morning. TIM FITZGERALD MD Jun 27, 2016 20:02
[2016-06-27] MEDS: ACETAMINOPHEN 500 MG TABLET PO PRN (20:48)
[2016-06-27] MEDS: ATORVASTATIN 10 MG TABLET PO SCH (22:50)
--- NOTE | 2016-06-28 06:07 | NUR ---
SHIFT SUMMARY PT ALERT AND ORIENTED X 3. AT TIMES SHE IS CONFUSED AND THEN IS ABLE TO CORRECT HER SELF. STAFF REDIRECTS HER AND SHE WILL SAY "YES THAT IS RIGHT". PT STATES SHE WAS VERY DIZZY AT THE FIRST OF THE SHIFT. MECLIZINE 25 MG GIVEN AT 2048. PT CONTINUES TO HAVE SCOPOLAMINE PATCH BEHIND HER RIGHT EAR. CONTINUES TO LAY FLAT THROUGH THE NIGHT. UP WITH ONE ASSIST TO THE BATHROOM OR BSC. CALL LIGHT WITHIN REACH. BED ALARM ON.
[2016-06-28] MEDS: OMEPRAZOLE 20 MG CAPSULE PO SCH (06:55)
[2016-06-28] MEDS: LEVOTHYROXINE 25 MCG TABLET PO SCH (06:56)
[2016-06-28] MEDS ORDERED: INHALER ASSIST DEVICE MEDIUM MASK (AEROCHAMBER) MC ONE (07:26)
[2016-06-28 08:02] VITALS: BP 162/79; PULSE 62; RESP 18; TEMP 96.3; O2SAT 99
--- NOTE | 2016-06-28 08:05 | NUR ---
ORIENTATION PT IS HAVING SOME INCREASED CONFUSION AND DIFFICULTY FOLLOWING DIRECTIONS THIS AM, REPORTS TO STAFF THAT SHE FEELS CONFUSED. KNOWS WHO SHE IS, WHERE SHE IS AND MONTH/YEAR. SPEECH IS RANDOM AT TIMES.
--- NOTE | 2016-06-28 09:08 | DI ---
INDICATION: ITS.REASON: chronic cough/COPD PROCEDURE: CHEST 2-VIEWS UPRIGHT (PA \T\ LAT) Encounter: Initial COMPARISON: Chest x-ray dated April 07, 2016 FINDINGS: Chronic moderate left pleural effusion is unchanged with left basilar consolidation. Senescent changes in both lungs. No new consolidative process. No pneumothorax. Heart size and mediastinal contours are unchanged. No new skeletal abnormality appreciated. Impression: Stable chest with a chronic moderate left effusion. .
--- NOTE | 2016-06-28 10:15 | NUR ---
CM THIS CM IN TODAY TO TALK WITH PATIENT IT IS STILL HER PLAN TO TRANSFER TO IRU. PATIENT VERBALIZE CONCERNS REGARDING MENTATION AND WORD FINDING DID REASSURE HER THAT IRU WILL ASSIST WITH THIS WELL PT/OT.
[2016-06-28] MEDS: POLYETHYL.GLYCOL 3350 PACKET 17gm PO SCH (10:18)
[2016-06-28] MEDS: ASPIRIN *EC* 81mg TABLET PO SCH (10:18)
[2016-06-28] MEDS: DEXAMETHASONE 4 MG TABLET PO SCH ×2 (10:19→14:15)
[2016-06-28] MEDS: SENNA + DOCUSATE TAB PO SCH (10:19)
[2016-06-28] MEDS: LATANOPROST 0.005% EYE DROPS 2.5 ML BOTTLE BOTH EYES SCH (10:19)
[2016-06-28] MEDS: METOPROLOL XL 25 MG TABLET PO SCH (10:19)
--- NOTE | 2016-06-28 10:34 | NUR ---
DEANA YANEZ ON IRU IS MADE AWARE OF TRANSFER TO IRU TODAY.
--- NOTE | 2016-06-28 11:51 | PNF ---
DATE 06/28/2016 REFERRING PHYSICIAN Sigrid Rodriguez MD PATIENT'S CHIEF COMPLAINT Gait problem. HISTORY OF PRESENT ILLNESS Patient is doing slightly better today. She is able to move better than yesterday. She was able to stand on her own with some with minimal assistance. Earlier in the morning the patient was described as confused by nurse, she was having difficulty following commands. This has not happened during my assessment. The patient had a spinal tap yesterday. This was unremarkable. The protein level was normal, the cell count was normal. She had elevated glucose level of 82. There was no other signs of inflammation. The patient continues to have vertiginous sensation upon moving, rolling in bed and turning her head. This has been fluctuating in severity. She has had no new weakness or numbness. Her motor strength in the upper extremity is about 4+ to 5-/5 and in the lower extremities 4+/5. This is mainly affected by arthritis. She has sensory loss in her legs up to the knees bilaterally which is a chronic problem. The opening pressure on the spinal tap yesterday was 21 which is the upper range of normal. Patient did well with the procedure. She has had no significant headache. 20 mL of CSF where drained to help with possible hydrocephalus. This has not made a huge difference on the patient's mobility. ASSESSMENT 1. Postconcussion syndrome associated with vertiginous sensation and gait problem. 2. 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 3. No evidence of hydrocephalus based on the patient CSF findings and clinical presentation. PLAN 1. Continue physical and occupational therapy. Agree with rehab transfer to improve gait and mobility. 2. Watch for any new central nervous system anomalies and malfunctioning which raise concern for encephalopathy. 3. Continue meclizine for vertigo. 4. Continue Decadron titration. This can be decreased to 2 mg p.o. b.i.d. and then later to 1 mg p.o. b.i.d. if patient continues to improve slowly. MTDD
[2016-06-28] MEDS ORDERED: ALBU2.5V7 AEROSOL (13:29)
[2016-06-28] MEDS ORDERED: SENN-152 PO (13:29)
[2016-06-28] MEDS ORDERED: POLY17PO18 PO (13:29)
[2016-06-28] MEDS ORDERED: CALC750T4 PO (13:29)
[2016-06-28] MEDS ORDERED: DEXA4TAB PO (13:29)
[2016-06-28] MEDS ORDERED: SCOP1PAT TD (13:29)
[2016-06-28] MEDS ORDERED: MECL-103 PO (13:29)
--- NOTE | 2016-06-28 14:53 | NUR ---
PATCH SCOPOLAMINE PATCH FROM BEHIND EAR DISCONTINUED FOR DISCHARGE.
--- NOTE | 2016-06-28 15:45 | NUR ---
REPORT REPORT GIVEN TO PRANAY SERRA ON IRU.
--- NOTE | 2016-06-28 15:45 | NUR ---
CHRISTINA PIRES REPORTED HAVING AN AURA AND USED HIS MAGNET, WHICH THEN RESOLVED HIS AURA. NOTIFIED DR. FITZGERALD. NO ORDERS RECEIVED. Addendum: 06/28/16 at 1651 by KRISTY TAVARES RN INCORRECT PATIENT.
--- NOTE | 2016-06-28 16:00 | NUR ---
STATUS PT IS A&OX3. STILL HAVING SOME CONFUSION. CALLS FOR NEEDS. UP WITH 1 ASSIST, WALKER AND GAIT BELT. PT IS ON RA. DENIES SOA/CP. VERTIGO IMPROVED DURING THE DAY PER PATIENT REPORT. BED AND CHAIR ALARMS USED.
--- NOTE | 2016-06-28 16:40 | NUR ---
DISCHARGE DISCHARGE INSTRUCTIONS EXPLAINED TO PATIENT. IVL IN PLACE. ID BAND IN PLACE. MEDS AND BELONGINGS SENT WITH PATIENT TO IRU ROOM 172. PT TRANSFERRED TO IRU VIA WHEELCHAIR.
--- NOTE | 2016-06-28 16:56 | CONSPD ---
ISAC TIPTON MAT GAUGER 06/28/16 1635: Consultation Info Date DATE: 06/28/16 TIME: 16:31 Date of Consultation: Jun 28, 2016 Attending Physician: Dr. Sigrid Rodriguez Reason for Consultation: breast cancer HPI - Adult Date DATE: 06/28/16 TIME: 16:31 General Chief Complaint: lower extremity weakness History of Present Illness Well-known patient of Dr. Dr. Manzano with history of breast cancer, initially diagnosed in 1991, status post left MRM; no radiation or systemic therapy. She elected for right prophylactic mastectomy. She had recurrence of the breast cancer, ER/MN positive, HER-2/vu negative in June 2014 when she presented with shortness of breath secondary to a large left malignant pleural effusion. She was started on Ibrance and letrozole. She was unable to tolerate the Ibrance. Had recurrent pleural effusion while on letrozole. Has chronic shortness of air, although symptoms are stable and has been without evidence of progression. Treatment is Faslodex injections every 4 weeks, last chemotherapy given 06/17/16. Patient was admitted to [facility] with acute weakness and ataxic gait. She had a fall approximately a week prior to admission, states "I just turned too fast and I got dizzy and fell forward." At that time patient had a CAT scan of the head done, negative for any acute findings. Since then has had intermittent nausea, increasing weakness, and gait difficulty. She denies diplopia, tinnitus, or hearing loss. CT of the head (without contrast) was repeated and again without evidence of pathology. In recent days the patient is had increasing difficulty ambulating because her legs give out and she feels like she can't control what her legs do. She describes her legs jerking when she wants to move forward. There's been no bowel or bladder incontinence and bowel and bladder function have been normal. She's having no difficulty swallowing and speech is normal. Is being followed by neurology. An MRI of the brain on 06/24/16 showed changes of chronic microvascular ischemia and atrophy in keeping with age, otherwise unremarkable. Also underwent lumbar puncture and awaiting pathology results. Has been started on dexamethasone. Past Medical History Past Medical History Breast cancer initially diagnosed over years ago with recurrence after 22 years, managed by Dr. Manzano Glaucoma Hypothyroidism Surgical History Patient's Surgical History: Cholecystectomy Current Medications Home Meds Active Scripts Dexamethasone (Dexamethasone) 4 Mg Tablet, 4 MG PO BID.. for VERTIGO for 3 Days , #6 TAB Prov:SIGRID RODRIGUEZ MD 06/28/16 Sennosides/Docusate Sodium (Senna Plus Tablet) 1 Tab Tablet, 2 TAB PO BID for CONSTIPATION/STOOL SOFTENING for 30 Days, #120 TAB Prov:SIGRID RODRIGUEZ MD 06/28/16 Polyethylene Glycol 3350 (Healthylax) 17 Gm Powd.pack, 17 G PO DAILY for CONSTIPATION/STOOL SOFTENING for 30 Days Prov:SIGRID RODRIGUEZ MD 06/28/16 Calcium Carbonate (Tums) 300 Mg Tab.chew, 750 MG PO PRN Y for INDIGESTION for 30 Days Prov:SIGRID RODRIGUEZ MD 06/28/16 Albuterol Sulfate (Albuterol Sulfate) 2.5 Mg/3 Ml Vial.neb, 2.5 MG AEROSOL RTQ4WA Y for SHORTNESS OF AIR/WHEEZING for 30 Days Prov:SIGRID RODRIGUEZ MD 06/28/16 Meclizine HCl (Meclizine HCl) 25 Mg Tablet, 25 MG PO QID Y for DIZZINESS for 30 Days Take 1 tablet, by mouth, 2 times a day. Prov:SIGRID RODRIGUEZ MD 06/28/16 Reported Medications Albuterol Sulfate (Ventolin HFA 90 mcg/actuation) 18 Gm Hfa.aer.ad, 1 PUFF ORAL INH Q4H Y for SHORTNESS OF AIR/WHEEZING 06/17/16 Calcium Carbonate (Calcium) 600 Mg Tablet, 600 MG PO DAILY 06/17/16 Acetaminophen (Acetaminophen Extra Strength) 500 Mg Tablet, 1-2 TAB PO PRN Y for PAIN 06/17/16 Ondansetron (Ondansetron Odt) 4 Mg Tab.rapdis, 4 MG PO Q4HR Y for NAUSEA &/OR VOMITING 11/12/15 Polyvinyl Alcohol/Povidone/Pf (Refresh Classic Eye Drops) 1 Each Droperette, 1 DROP BOTH EYES DAILY, ML 11/12/15 Alprazolam (Alprazolam) 0.5 Mg Tablet, 0.25 MG PO HS Y for PRN ORDERS 08/25/15 Multivitamin (Multivitamins) 1 Each Tablet, 1 TAB PO DAILY 12/14/13 Metoprolol Succinate (Metoprolol Succinate) 50 Mg Tab.er.24h, 25 MG PO BID, TAB 12/14/13 Levothyroxine Sodium (Levothyroxine Sodium) 25 Mcg Tablet, 25 MCG PO ACB 12/14/13 Atorvastatin Calcium (Atorvastatin Calcium) 10 Mg Tablet, 10 MG PO HS 12/14/13 Omeprazole (Prilosec) 20 Mg Capsule.dr, 20 MG PO BID 06/17/11 Latanoprost (Xalatan) 2.5 Ml Drops, 1 DROP OP DAILY 01/15/11 Aspirin (Aspir 81) 81 Mg Tablet.dr, 81 MG PO DAILY 04/13/08 Discontinued Reported Medications [Pea Protein] No Conflict Check, 1 DOSE PO DAILY 06/17/16 Potassium Chloride (Potassium Chloride) 20 Meq Tab.er.prt, 20 MEQ PO BID 06/17/16 Furosemide (Lasix) 20 Mg Tablet, 40 MG PO DAILY 04/27/15 Allergies: Coded Allergies: morphine (Verified Allergy, Intermediate, ITCHING,HOT, 06/17/16) propoxyphene HCl (Verified Allergy, Unknown, 06/17/16) codeine (Unverified Adverse Reaction, Intermediate, VOMITING, 06/17/16) hydrocodone (Verified Adverse Reaction, Intermediate, VOMITING, 06/17/16) meperidine (Verified Adverse Reaction, Intermediate, VOMITING, 06/17/16) oxycodone (Unverified Adverse Reaction, Unknown, CONFUSION, 06/17/16) Family History Family History: Extensive coronary disease and hypertension Social History Does patient use chewing tobac: No Substance Use Type: does not use Alcohol Intake: occasionally Marital Status: Current Occupational Status: retired Advance Directives: Yes DPOA for Healthcare Only (Isaura, daughter), Yes Full Code, Yes Living Will Review of Systems Constitutional: DENIES: chills, fever, weight loss Eyes Vision: DENIES: double vision, vision changes ENMT Balance: ataxia Cardiovascular dyspnea on exertion, DENIES: chest pain Rhythm/Rate: DENIES: tachycardia Vascular: DENIES: pedal edema Pulmonary Respiratory: DENIES: cough, sputum GI Upper Abdomen: nausea, vomiting (see history of present illness), DENIES: food intolerances, pain General: DENIES: dysuria, frequency Musculoskeletal General: weakness, DENIES: joint pain Integumentary Skin: DENIES: itching, rash Neurological General: ataxia, poor coordination, weakness, DENIES: blackouts, headache Psychiatric Psychiatric: DENIES: depression, emotional instability Endocrine DENIES: heat/cold intolerance Physical Exam General General Nourishment: well nourished, well developed Vital Signs Vital Signs Date Time Temp Pulse Resp B/P Pulse Ox O2 Delivery O2 Flow Rate FiO2 06/28/16 08:02 96.3 62 18 162/79 99 Room Air Height (Feet): 5 Height (Inches): 3.00 Telemetry Rhythm: Sinus Rhythm Eyes Brief: FOUND: EOMI, PERRL, NOT FOUND: scleral icterus Neck Brief: NOT FOUND: adenopathy Respiratory Brief: FOUND: clear all epps, equal bilaterally Cardiovascular (brief) Cardiac Brief: FOUND: regular rate, regular rhythm, NOT FOUND: pedal edema Abdomen (brief) Abdominal Brief: FOUND: BS normo active x4, soft, NOT FOUND: hepatosplenomegaly , tender Lymphatic (brief) Lymphatic Brief: NOT FOUND: adenopathy Musculoskeletal (brief) Musculoskeletal Brief: FOUND: loss of motion (ataxic gait), other (mild decreased power bilateral lower extremities/ 4 over 5), NOT FOUND: deformity, tenderness Integumentary (brief) Integumentary Brief: FOUND: dry, warm, NOT FOUND: rash Neurologic (brief) Neurological Brief: FOUND: cranial 2-12 intact Neurologic RN Documented GCS Eye Opening: Verbal: Motor: Total: Psychiatric (brief) FOUND: alert, attentive, normal affect, oriented Laboratory Laboratory Tests Test 06/27/16 04:47 06/27/16 14:40 06/27/16 14:48 06/27/16 17:06 Turbidity < 20 Sodium Level 134MEQ/L Potassium Level 4.3MEQ/L Chloride Level 101MEQ/L Carbon Dioxide Level 26MEQ/L Anion Gap 7MEQ/L Blood Urea Nitrogen 21.0MG/DL Creatinine 0.6MG/DL Glomerular Filtration Rate Calc 95 BUN/Creatinine Ratio 35RATIO Glucose Level 136MG/DL Calculated Osmolality 263MOSM/KG Calcium Level 8.9MG/DL Icterus Index < 2 Chemistry Specimen Hemolysis < 15 Prothromb Time International Ratio 0.99 CSF Color Colorless CSF Turbidity Clear CSF RBC 1/MM3 CSF Total Nucleated Cell Count 4/MM3 CSF Neutrophils 0% CSF Lymphocytes 100% CSF Monocytes 0% CSF Eosinophils % 0% CSF Basophils 0% CSF Other Cells % 0% CSF Glucose 82MG/DL CSF Total Protein 52MG/DL Test 06/28/16 13:52 Impression/Recommendation Impression 1. Metastatic left breast cancer, ER/Pr positive,HER-2/vu negative, with stable malignant left pleural effusion. Last Faslodex given 06/17/16 2. Postconcussion syndrome and ataxia following a head injury. Questionable metastatic disease, awaiting lumbar puncture pathology. Recommendation Continue supportive care. Dexamethasone per neurology. Await pathology results from lumbar puncture. ALPHONSO MANZANO MD 06/29/16 1502: Past Medical History Current Medications Home Meds Active Scripts Dexamethasone (Dexamethasone) 4 Mg Tablet, 4 MG PO BID.. for VERTIGO for 3 Days , #6 TAB Prov:SIGRID RODRIGUEZ MD 06/28/16 Sennosides/Docusate Sodium (Senna Plus Tablet) 1 Tab Tablet, 2 TAB PO BID for CONSTIPATION/STOOL SOFTENING for 30 Days, #120 TAB Prov:SIGRID RODRIGUEZ MD 06/28/16 Polyethylene Glycol 3350 (Healthylax) 17 Gm Powd.pack, 17 G PO DAILY for CONSTIPATION/STOOL SOFTENING for 30 Days Prov:SIGRID RODRIGUEZ MD 06/28/16 Calcium Carbonate (Tums) 300 Mg Tab.chew, 750 MG PO PRN Y for INDIGESTION for 30 Days Prov:SIGRID RODRIGUEZ MD 06/28/16 Albuterol Sulfate (Albuterol Sulfate) 2.5 Mg/3 Ml Vial.neb, 2.5 MG AEROSOL RTQ4WA Y for SHORTNESS OF AIR/WHEEZING for 30 Days Prov:SIGRID RODRIGUEZ MD 06/28/16 Meclizine HCl (Meclizine HCl) 25 Mg Tablet, 25 MG PO QID Y for DIZZINESS for 30 Days Take 1 tablet, by mouth, 2 times a day. Prov:SIGRID RODRIGUEZ MD 06/28/16 Reported Medications Albuterol Sulfate (Ventolin HFA 90 mcg/actuation) 18 Gm Hfa.aer.ad, 1 PUFF ORAL INH Q4H Y for SHORTNESS OF AIR/WHEEZING 06/17/16 Calcium Carbonate (Calcium) 600 Mg Tablet, 600 MG PO DAILY 06/17/16 Acetaminophen (Acetaminophen Extra Strength) 500 Mg Tablet, 1-2 TAB PO PRN Y for PAIN 06/17/16 Ondansetron (Ondansetron Odt) 4 Mg Tab.rapdis, 4 MG PO Q4HR Y for NAUSEA &/OR VOMITING 11/12/15 Polyvinyl Alcohol/Povidone/Pf (Refresh Classic Eye Drops) 1 Each Droperette, 1 DROP BOTH EYES DAILY, ML 11/12/15 Alprazolam (Alprazolam) 0.5 Mg Tablet, 0.25 MG PO HS Y for PRN ORDERS 08/25/15 Multivitamin (Multivitamins) 1 Each Tablet, 1 TAB PO DAILY 12/14/13 Metoprolol Succinate (Metoprolol Succinate) 50 Mg Tab.er.24h, 25 MG PO BID, TAB 12/14/13 Levothyroxine Sodium (Levothyroxine Sodium) 25 Mcg Tablet, 25 MCG PO ACB 12/14/13 Atorvastatin Calcium (Atorvastatin Calcium) 10 Mg Tablet, 10 MG PO HS 12/14/13 Omeprazole (Prilosec) 20 Mg Capsule.dr, 20 MG PO BID 06/17/11 Latanoprost (Xalatan) 2.5 Ml Drops, 1 DROP OP DAILY 01/15/11 Aspirin (Aspir 81) 81 Mg Tablet.dr, 81 MG PO DAILY 04/13/08 Discontinued Reported Medications [Pea Protein] No Conflict Check, 1 DOSE PO DAILY 06/17/16 Potassium Chloride (Potassium Chloride) 20 Meq Tab.er.prt, 20 MEQ PO BID 06/17/16 Furosemide (Lasix) 20 Mg Tablet, 40 MG PO DAILY 04/27/15 Allergies: Coded Allergies: morphine (Verified Allergy, Intermediate, ITCHING,HOT, 06/17/16) propoxyphene HCl (Verified Allergy, Unknown, 06/17/16) codeine (Unverified Adverse Reaction, Intermediate, VOMITING, 06/17/16) hydrocodone (Verified Adverse Reaction, Intermediate, VOMITING, 06/17/16) meperidine (Verified Adverse Reaction, Intermediate, VOMITING, 06/17/16) oxycodone (Unverified Adverse Reaction, Unknown, CONFUSION, 06/17/16) Impression/Recommendation Recommendation I interviewed and examined the patient. I developed the plan of care. Will follow up on the pending work up. ISAC TIPTON MAT GAUGER Jun 28, 2016 16:35 ALPHONSO MANZANO MD Jun 29, 2016 15:02
--- NOTE | 2016-06-28 20:43 | DSPDOC ---
General Date Date DATE: 06/28/16 TIME: 20:25 Attending Physician Sigrid Rodriguez MD Admitting Physician Sigrid Rodriguez MD Consulting Physician Darion Gibson MD Admitting Diagnosis WEAKNESS Discharge Diagnosis 1. Postconcussive syndrome with ataxia and vertigo 2. Metastatic breast cancer, history 3. Malignant pleural effusion, left 4. Hypertension 5. Coronary artery disease 6. COPD 7. Steroid-induced hyperglycemia 8. Degenerative disc disease Procedures Lumbar puncture on 06/27 with removal of 20 cc of clear fluid by interventional radiology. Opening pressure 21 cm water. Laboratory Laboratory Tests Test 06/27/16 14:40 06/27/16 14:48 06/27/16 17:06 06/28/16 13:52 Prothromb Time International Ratio 0.99 (0.76-1.04) CSF Color Colorless CSF Turbidity Clear CSF RBC 1/MM3 (0-0) CSF Total Nucleated Cell Count 4/MM3 (0-5) CSF Neutrophils 0% CSF Lymphocytes 100% CSF Monocytes 0% CSF Eosinophils % 0% CSF Basophils 0% CSF Other Cells % 0% CSF Glucose 82MG/DL (40-70) CSF Total Protein 52MG/DL (12-60) Hemoglobin on admission 12.6, white count 7.6 Chemistries on admission unremarkable, creatinine 0.6 and liver enzymes within normal limits. CRP 12.2 on 06/25, TSH 4.05 on admission Paraneoplastic antibodies pending at discharge on serum and CSF; IgG synthesis on CSF and CSF cytology pending at discharge Microbiology Microbiology Date/Time Source Procedure Growth Status 06/27/16 17:06 Cerebral Spinal Fluid Gram Stain - Final Resulted 06/27/16 17:06 Cerebral Spinal Fluid CSF Culture - Preliminary NO GROWTH AFTER 24 HOURS Resulted Radiology Lumbar spine CT on 06/23 The alignment of the lumbar spine is stable. No acute compression fracture seen. Scoliosis and degenerative change with moderate degenerative disk disease at L1-L2, L2-L3 and L3-L4. Paraspinal soft tissues are unremarkable. No acute displaced fracture seen. Bony demineralization limits detection of nondisplaced fractures. MRI of the brain on 06/24 1. Extensive partial deep white matter hyperintense FLAIR foci again noted which may have progressed since prior exam. This most likely represents changes of chronic microvascular ischemia. 2. Atrophy in keeping with age. 3. Otherwise unremarkable MRI of the cervical spine on 06/24 1. At C5-6 there is disc bulge and posterior bony ridging which may have some mild flattening mass effect on the anterior cord. The posterior subarachnoid space remains patent. 2. At C6-7 there is mild disc bulge flattening the anterior thecal sac but does not contact anterior cord. 3. Arthritic changes is seen of the dens articulation with the anterior arch of C1 likely related to patient's known rheumatoid arthritis. MRI of the thoracic spine on 06/24 1. Old compression deformity of the T11 total body with 15 % loss of height. However no marrow edema is identified. No acute fracture seen. 2. Minimal disc bulge at T3-4 flattening the anterior thecal sac without mass effect on the cord. 3. No neural compromise is appreciated. MRI of the lumbar spine on 06/24 1. Disc space narrowing at L1-L2, L2-3, and L3-4 with mild disc bulges. There is mild spinal canal narrowing at L3-4 from disc bulge and ligamentum flavum hypertrophy. 2. Right-sided neural foraminal narrowing at L2-3 from mild lateral disc bulge and facet hypertrophic changes. It is uncertain whether the right L2 nerve root is affected. Chest x-ray on 06/28 revealed moderate left pleural effusion unchanged from 04/07. History of Present Illness This is an 85-year-old female who apparently 1 week ago fell striking her face. The patient was evaluated in the emergency department and a CT of the head was unremarkable for acute bleed or other injury. Since that time the patient had an episode of nausea and vomiting 2. The patient presented back to her primary care physicians office and a subsequent CT of the head was arranged which again did not demonstrate acute injury. The patient approximately 2:00 this afternoon had onset of increasing weakness to her lower extremities. To the point where she is unable to walk. This has never happened to the patient before. Up to this point this past week the patients bili driving care for herself easily. The episodes of falling are described by patient as a tripping or non-syncopal neurological event. The patient had been highly functional at this point. In the emergency department the patient had a CT of her lumbar spine which did not demonstrate an acute injury. The patients metabolic workup was unremarkable. TSH was normal. Urine was done infection. A CT of the head was repeated and again was without particular findings. Because of ongoing weakness the patient is to be admitted to the hospital for further assessment. The patient has not been incontinent of bowel or bladder. The patient does not describe numbness. The patient describes as inability to bear weight on her legs. The patient denies pain to her back. The patient denies headache. 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 No upper extremity weakness. Extensive imaging ordered. Patient has probable posttraumatic vertigo but has developed progressive difficulty ambulating. Imaging of the back by MRI has been scheduled and will additionally add MRI of the head. I was later notified that MRI of the brain was without acute pathology. Results were briefly discussed with Dr. Gibson who was not available to see the patient today. I suspect she has postconcussive vertigo. Scopolamine patch will be initiated in conjunction with when necessary meclizine. Dr. Gibson recommended consideration of low-dose steroids with Decadron to 4 mg twice a day and if she responds steroids can be tapered in the near future. IV fluids given yesterday without change in symptoms. Continue PT/OT. 06/25 Vertigo much better today following initiation of scopolamine patch and low- dose Decadron. Patient was able to ambulate 68 feet with physical therapy this morning. Continue current treatment with plans to decrease steroid dose in 2-3 days. Being evaluated for IRU. Probable postconcussive injury/vertigo. Blood pressure borderline with addition of steroids, continue to monitor on home regimen. Ventolin resumed every 4 hours when necessary for chronic dyspnea attributed to prior lung disease/breast cancer. Minor hyperglycemia present this morning, consistent with steroids. Does not require intervention. DDD present at multiple levels but does not appear to be causing compromise or contributing to current symptoms. 06/26 Symptoms stable but continues to have difficulty ambulating. Vertigo/nausea controlled with scopolamine and low-dose Decadron. DDD present at multiple levels but does not appear to be causing compromise or contributing to current symptoms. Will ask Dr. Gibson to evaluate formally when available tomorrow. IRU evaluation pending. Continue to monitor blood pressure, borderline with steroids. Respiratory symptoms stable-Ventolin HFA reordered again today. Mild hyperglycemia present with steroids, reassess electrolytes in the morning. 06/27 Symptoms stable but continues to have difficulty ambulating. Plan transfer to rehabilitation tomorrow. Vertigo/nausea generally controlled with scopolamine and low-dose Decadron. Discussed with Dr. Gibson who suggested frontal lobe gait disorder due to recent head injury and also recommended lumbar puncture for evaluation of opening pressure. LP done this afternoon-opening pressure 21 cm H2O, 20 cc fluid removed and sent for studies. Can add cytology to CSF studies if needed. Relative excess in lymphocytes present given only 1 red cell but total number quite low. DDD present at multiple levels but does not appear to be causing compromise or contributing to current symptoms. Tums added for indigestion. Constipation resolved. Continue albuterol-use of metered-dose inhaler discussed with nursing as patient prefers it to nebulized treatments. Given persistent symptoms - check chest x-ray in morning. 06/28 Patient reported increased confusion today with difficulty finding words. She again described vertigo this morning which improved after a dose of meclizine. Dyspnea is at baseline and the only pain she reports is her usual arthritis. On examination breath sounds are diminished at the left base and the patient occasionally miss uses a word but was alert and cooperative when seen. There is proximal lower extremity muscle weakness. Initial CSF studies are unremarkable at this time and there's been no growth in the CSF overnight. Discussed with Dr. Gibson-paraneoplastic syndrome questioned, subsequently discussed with Dr. Manzano who will see the patient in consultation. Paraneoplastic antibodies ordered on CSF and blood. CSF cytology also ordered. Scopolamine discontinued to determine if it is contributing to patient's confusion. Stable to transfer to IRU for continuation of rehabilitation efforts for weakness/gait abnormality. Patient is aware that there are additional studies pending at discharge. Reassess need for scopolamine over upcoming days. >30 minutes spent on patient care and discharge care coordination today on the date of discharge. -- Problems: Code Status Full Code Home Meds Active Scripts Dexamethasone (Dexamethasone) 4 Mg Tablet, 4 MG PO BID.. for VERTIGO for 3 Days , #6 TAB Prov:SIGRID RODRIGUEZ MD 06/28/16 Sennosides/Docusate Sodium (Senna Plus Tablet) 1 Tab Tablet, 2 TAB PO BID for CONSTIPATION/STOOL SOFTENING for 30 Days, #120 TAB Prov:SIGRID RODRIGUEZ MD 06/28/16 Polyethylene Glycol 3350 (Healthylax) 17 Gm Powd.pack, 17 G PO DAILY for CONSTIPATION/STOOL SOFTENING for 30 Days Prov:SIGRID RODRIGUEZ MD 06/28/16 Calcium Carbonate (Tums) 300 Mg Tab.chew, 750 MG PO PRN Y for INDIGESTION for 30 Days Prov:SIGRID RODRIGUEZ MD 06/28/16 Albuterol Sulfate (Albuterol Sulfate) 2.5 Mg/3 Ml Vial.neb, 2.5 MG AEROSOL RTQ4WA Y for SHORTNESS OF AIR/WHEEZING for 30 Days Prov:SIGRID RODRIGUEZ MD 06/28/16 Meclizine HCl (Meclizine HCl) 25 Mg Tablet, 25 MG PO QID Y for DIZZINESS for 30 Days Take 1 tablet, by mouth, 2 times a day. Prov:SIGRID RODRIGUEZ MD 06/28/16 Reported Medications Albuterol Sulfate (Ventolin HFA 90 mcg/actuation) 18 Gm Hfa.aer.ad, 1 PUFF ORAL INH Q4H Y for SHORTNESS OF AIR/WHEEZING 06/17/16 Calcium Carbonate (Calcium) 600 Mg Tablet, 600 MG PO DAILY 06/17/16 Acetaminophen (Acetaminophen Extra Strength) 500 Mg Tablet, 1-2 TAB PO PRN Y for PAIN 06/17/16 Ondansetron (Ondansetron Odt) 4 Mg Tab.rapdis, 4 MG PO Q4HR Y for NAUSEA &/OR VOMITING 11/12/15 Polyvinyl Alcohol/Povidone/Pf (Refresh Classic Eye Drops) 1 Each Droperette, 1 DROP BOTH EYES DAILY, ML 11/12/15 Alprazolam (Alprazolam) 0.5 Mg Tablet, 0.25 MG PO HS Y for PRN ORDERS 08/25/15 Multivitamin (Multivitamins) 1 Each Tablet, 1 TAB PO DAILY 12/14/13 Metoprolol Succinate (Metoprolol Succinate) 50 Mg Tab.er.24h, 25 MG PO BID, TAB 12/14/13 Levothyroxine Sodium (Levothyroxine Sodium) 25 Mcg Tablet, 25 MCG PO ACB 12/14/13 Atorvastatin Calcium (Atorvastatin Calcium) 10 Mg Tablet, 10 MG PO HS 12/14/13 Omeprazole (Prilosec) 20 Mg Capsule.dr, 20 MG PO BID 06/17/11 Latanoprost (Xalatan) 2.5 Ml Drops, 1 DROP OP DAILY 01/15/11 Aspirin (Aspir 81) 81 Mg Tablet.dr, 81 MG PO DAILY 04/13/08 Discontinued Reported Medications [Pea Protein] No Conflict Check, 1 DOSE PO DAILY 06/17/16 Potassium Chloride (Potassium Chloride) 20 Meq Tab.er.prt, 20 MEQ PO BID 06/17/16 Furosemide (Lasix) 20 Mg Tablet, 40 MG PO DAILY 04/27/15 Face to Face Encounter I met with patient on the day of dismissal and discussed follow up appointments , medications, and safety plan. Discharge Disposition IRU Copies To 1: DARION GIBSON MD; ALPHONSO MANZANO MD; DARYN MASTERS MD Documentation Requirements Documenting Diagnosis Anemia, Confusion Anemia Anemia Acuity: Chronic Alt. Mental Status/Confusion Check if condition above is: Acute SIGRID RODRIGUEZ MD Jun 28, 2016 20:30
== END 2016-06-28 16:40 | DRG 103 ==
LOC: ED 21:04 → MED 23:35 → EDHOLD 23:35 → INTOOBSV 23:52 → OBSVTOIN 23:52
PROVIDERS: ADMIT Emergency Medicine; ATTEND Internal Medicine
PROC: 009U3ZX Drainage of Spinal Canal, Percutaneous Approach, Diagnostic (ICD-10-PCS; principal; 2016-06-27)
DX: F07.81 Postconcussional syndrome (principal); J91.0 Malignant pleural effusion; R42 Dizziness and giddiness; R26.0 Ataxic gait; M06.9 Rheumatoid arthritis, unspecified; I25.10 Atherosclerotic heart disease of native coronary artery without angina pectoris; I10 Essential (primary) hypertension; E03.9 Hypothyroidism, unspecified; D64.9 Anemia, unspecified; E78.5 Hyperlipidemia, unspecified; M50.222 Other cervical disc displacement at C5-C6 level; M50.223 Other cervical disc displacement at C6-C7 level; J44.9 Chronic obstructive pulmonary disease, unspecified; R73.9 Hyperglycemia, unspecified; T38.0X5A Adverse effect of glucocorticoids and synthetic analogues, initial encounter; K59.00 Constipation, unspecified; H40.9 Unspecified glaucoma; Z85.3 Personal history of malignant neoplasm of breast; Z79.82 Long term (current) use of aspirin; Z95.1 Presence of aortocoronary bypass graft; Z79.899 Other long term (current) drug therapy
CPT/HCPCS: 36000; 36415; 62270; 80048; 80053; 81003; 82040; 82042; 82784; 82945; 83519; 83520; 83735; 84100; 84157; 84443; 84484; 85025; 85610; 86140; 86255; 86256; 87070; 87205; 88108; 89051; 93005; 94640

== ENCOUNTER → 2016-06-23 | Outpatient (CLI) | payer MEDICARE, OTHER ==
[~2016-06-23] MED LIST: ACET-2161 PO; ALBU18HF2 ORAL INH; ALBU2.5V7 AEROSOL; ALPR0.5T8 PO; ASPI-558 PO; ATOR10TA64 PO; CALC600T12 PO; CALC750T4 PO; DEXA4TAB PO; FURO-154 PO; LATA2.5D6 OP; LEVO25TA9 PO; MECL-103 PO; METO-277 PO; MULT1TAB69 PO; OMEP-29 PO; ONDA4TAB10 PO; POLY17PO18 PO; POLY30DR BOTH EYES; POTA20TA87 PO; SCOP1PAT TD; SENN-152 PO; [UNRECOGNIZED DRUG - OTHER] PO
--- NOTE | 2016-06-23 08:45 | DI ---
Indication: ITS.REASON: R40.0 Somnolence ; R42 Dizziness and giddiness CT HEAD W/O CONTRAST: Comparison: 06/17/2016 Technique: Nonenhanced axial images provided with brain and bone window evaluation and dose reduction imaging technology. Findings: Patient shows no change in the area of radiolucency in the posterior aspect of the right bony calvarium. The visualized sinuses and mastoids are showing no acute findings. Patient continues to show diffuse deep white matter changes and moderate generalized atrophy. This appearance seems similar to the previous examination. No acute findings such as hemorrhage, midline shift or mass effect noted. Impression: 1. Chronic atrophy and deep white matter changes without suggestion of acute new abnormality. 2. Patient shows a low-density areas extending from the inner table into the mid posterior occipital bone which does not have the appearance of an aggressive lesion and has been identified since the CT study from 2013 without change. Bone scanning or MR imaging could be utilized patient has any localized symptoms in this region. 3. Findings called ordering clinician when study provided. .
== END ==
LOC: IMA 08:05
PROVIDERS: ATTEND Physician Assistant
DX: G31.89 Other specified degenerative diseases of nervous system (principal); R40.0 Somnolence; R42 Dizziness and giddiness

== ENCOUNTER 2016-06-28 16:41 | Inpatient (IN) | payer MEDICARE, OTHER ==
[~2016-06-28] VITALS: Ht 160 cm; Wt 55.0 kg
[2016-06-28 16:40] VITALS: BP 167/88; PULSE 66; RESP 20; TEMP 97.5; O2SAT 97; BMI 22.1
--- NOTE | 2016-06-28 16:40 | NUR ---
Admit Pt. admitted to Rm. 172 from the Medical Unit. VS's stable. Pt. is pleasant and A/O x3. She is a transfer x1 with FWW and gait belt. Pt. denies pain at this time. Pt. belongings noted include: glasses, ring (x1), cell phone (with automotive teacher) and [employer] hand-held game. Bed alarm is on. Will continue to monitor.
[~2016-06-28 16:41] MED LIST changes: +ALBU2.5V7 AEROSOL; +CALC750T4 PO; +DEXA4TAB PO; +MECL-103 PO; +POLY17PO18 PO; +SCOP1PAT TD; +SENN-152 PO
[2016-06-28] MEDS ORDERED: PRN ORDERS MC (17:30)
[2016-06-28 17:43] VITALS: Ht 160 cm; Wt 55.0 kg
[2016-06-28 18:00] VITALS: PULSE 66; RESP 20
[2016-06-28] MEDS ORDERED: ALPRAZOLAM 0.25 MG TABLET PO PRN (19:00)
[2016-06-28] MEDS ORDERED: ONDANSETRON ODT 4 MG TAB PO PRN (19:00)
[2016-06-28] MEDS ORDERED: MECLIZINE 25 MG TABLET PO PRN (19:00)
--- NOTE | 2016-06-28 19:21 | NUR ---
Status Pt. is very pleasant. She is continent. Pt. does report dribbling, but states she has dribbling at home as well. She has a good appetite and ate 100% of dinner. Pt. is able to use call light appropriately. She does report dizziness/lightheadedness at times. Pt. has denied nausea. Pt. is currently resting in bed. Alarm is on. Report has been past on to casino shift manager.
[2016-06-28 21:00] VITALS: BP 172/74; PULSE 60; RESP 20; TEMP 97.6; O2SAT 98
[2016-06-28] MEDS: DOCUSATE SODIUM 100 MG CAPSULE PO SCH (21:00)
[2016-06-28] MEDS: SENNA + DOCUSATE TAB PO SCH (21:00)
[2016-06-28] MEDS: METOPROLOL XL 50 MG TABLET PO SCH (21:15)
[2016-06-28] MEDS: ATORVASTATIN 10 MG TABLET PO SCH (21:15)
[2016-06-28] MEDS: OMEPRAZOLE 20 MG CAPSULE PO SCH (21:15)
[2016-06-28] MEDS: CALCIUM CARBONATE 750mg Chewable TAB PO PRN (21:23)
[2016-06-29 01:22] VITALS: PULSE 60; RESP 20
--- NOTE | 2016-06-29 03:18 | NUR ---
STATUS. PT NEEDS REMINDING TO USE CALL LIGHT. PT REPORTS DIZZINESS WITH SITTING UP AND STANDING. BRUISING NOTED TO RT LEG AND LT ARM. BED EXIT ALARM ON. PT HAS BEEN CONT B AND B.
--- NOTE | 2016-06-29 03:27 | NUR ---
Chart Check 24 hour chart check completed
[2016-06-29 05:14] LABS: HCT - HEMATOCRIT 37.8 % (36-46); HGB - HEMOGLOBIN 12.3 GM/DL (12-16); IMMATURE GRANULOCYTE # (AUTO) 0.02 T/MM3 (0.00-0.03); IMMATURE GRANULOCYTE % (AUTO) 0.2 % (0.0-0.5); LYMPHOCYTES # (AUTO) 2.3 T/MM3 (1-4.8); LYMPHOCYTES % (AUTO) 22.2 % (23-45); MEAN CORPUSCULAR HGB 32.2 UUG (26-34); MEAN CORPUSCULAR HGB CONC(MCHC 32.5 GM/DL (31-37); MEAN PLATELET VOLUME 12.8 UM3 (9.4-12.4); MONOCYTES # (AUTO) 0.9 T/MM3 (0-0.8); MONOCYTES % (AUTO) 8.7 % (0-9.0); NEUTROPHILS #(AUTO)-ABSOLUTE 7.1 T/MM3 (1.8-7.7); NEUTROPHILS % (AUTO) 68.9 % (33-66); RED BLOOD COUNT 3.82 M/MM3 (4.00-5.20); WBC - WHITE BLOOD COUNT 10.2 T/MM3 (4.5-11.0)
[2016-06-29 05:35] LABS: ANION GAP 6 MEQ/L (5-15); BUN/CREATININE RATIO 32 RATIO (6-26); CALCIUM 8.7 MG/DL (8.4-10.2); CHLORIDE 101 MEQ/L (98-107); CO2 - CARBON DIOXIDE 28 MEQ/L (22-30); CREATININE 0.6 MG/DL (0.7-1.2); GLOMERULAR FILTRATION RATE 95; GLUCOSE 111 MG/DL (65-110); POTASSIUM 4.6 MEQ/L (3.6-5); SODIUM 135 MEQ/L (134-144)
[2016-06-29] MEDS: LEVOTHYROXINE 25 MCG TABLET PO SCH (06:29)
[2016-06-29] MEDS: ALBUTEROL INH.SOLN. 2.5mg/3ml (0.083%) Neb. AEROSOL PRN (06:59)
[2016-06-29 07:00] VITALS: O2SAT 96
[2016-06-29 08:00] VITALS: PULSE 70; RESP 20
[2016-06-29 08:16] VITALS: BP 178/71; PULSE 70; RESP 18; TEMP 98.3; O2SAT 97
[2016-06-29] MEDS: DOCUSATE SODIUM 100 MG CAPSULE PO SCH ×2 (08:33→21:00)
[2016-06-29] MEDS: POLYETHYL.GLYCOL 3350 PACKET 17gm PO SCH (08:34)
[2016-06-29] MEDS: SENNA + DOCUSATE TAB PO SCH ×2 (08:34→21:00)
[2016-06-29] MEDS: MULTIVITAMIN + MINERAL TABLET PO SCH (08:35)
[2016-06-29] MEDS: METOPROLOL XL 50 MG TABLET PO SCH ×2 (08:35→21:02)
[2016-06-29] MEDS: REFRESH CLASSIC Eye Drops 0.4ml Dropperette BOTH EYES SCH (08:36)
[2016-06-29] MEDS: LATANOPROST 0.005% EYE DROPS 2.5 ML BOTTLE BOTH EYES SCH (08:36)
[2016-06-29] MEDS: CALCIUM CARBONATE 600 MG TABLET PO SCH ×2 (08:36→08:55)
[2016-06-29] MEDS: OMEPRAZOLE 20 MG CAPSULE PO SCH ×2 (08:36→20:59)
[2016-06-29] MEDS: ASPIRIN *EC* 81mg TABLET PO SCH (08:36)
[2016-06-29] MEDS ORDERED: DEXAMETHASONE 4 MG TABLET PO SCH (09:00)
--- NOTE | 2016-06-29 09:00 | CONSPD ---
BISMARK ALANIZ V FLUME WORKER 06/29/16 0837: Consultation Info Date DATE: 06/29/16 TIME: 08:25 Date of Consultation: Jun 29, 2016 Attending Physician: Dr Rodriguez Reason for Consultation: Medical management HPI - Adult Date DATE: 06/29/16 TIME: 08:25 General Chief Complaint: postconcussive syndrome with ataxia and vertigo History of Present Illness Iris is a very pleasant 85-year-old female who is known to the hospitalist services as she was recently admitted acutely for postconcussive syndrome with ataxia, vertigo, known metastatic breast cancer with malignant pleural effusion. She had suffered a fall on June 17 and was seen in the emergency room , imaging was completed and no acute trauma was found at that time. Then approximately 6 days following the fall. She had a sudden increase in progressive weakness to the lower extremities to the point that she was unable to ambulate. She then returned to the emergency room for further evaluation and treatment. She was admitted acutely for postconcussive syndrome with ataxia and vertigo. During her stay. She did display some encephalopathy at times. She was evaluated by neurology, Dr. Castillo and underwent lumbar puncture for further workup. She was also seen by Dr. Fulton her oncologist for known history of metastatic left breast cancer with malignant pleural effusion. Her symptoms overall continue to improve. However, she has ongoing weakness and gait abnormality. She was accepted to the inpatient rehabilitation unit for ongoing therapy for improved strength and functioning. Iris is seen this morning during breakfast. She is alert and oriented and without complaints during examination. She states that overall she is feeling much better today. She does note that this morning during her shower. She did have an episode where her left palm was read, however, it has now resolved. She denies having any itching or rashes. No shortness of breath or chest pain. Morning. Vital signs reviewed, pulse 66, blood pressure 172/74, room air saturations 96%. Morning labs were reviewed, WBC count 10.2, RBCs 3.82, hemoglobin 12.3, hematocrit 37.8, platelet count 126. Past Medical History Past Medical History CAD Moderate aortic insufficiency GERD Breast cancer initially diagnosed over years ago with recurrence after 22 years, managed by Dr. Fulton Left malignant pleural effusion Glaucoma Hypothyroidism Hyperlipidemia Surgical History Patient's Surgical History: Cholecystectomy- 2012 Left shoulder [id number] ? Cardiac Bypass with stent placement - [facility] Cardiac stent- Dr Joseph Heart Cath- Dr Esquivel- 2015 Bilateral Mastectomy- Left breast Carcinoma(1991), Right breast elected mastectomy(1994) Dr Marie Colonoscopy- 2011 Placement of left Pleurx catheter 06/2015, Removal- 08/2015 (Dr Gastelum) Current Medications Home Meds Active Scripts Dexamethasone (Dexamethasone) 4 Mg Tablet, 4 MG PO BID.. for VERTIGO for 3 Days , #6 TAB Prov:TIM RODRIGUEZ MD 06/28/16 Sennosides/Docusate Sodium (Senna Plus Tablet) 1 Tab Tablet, 2 TAB PO BID for CONSTIPATION/STOOL SOFTENING for 30 Days, #120 TAB Prov:TIM RODRIGUEZ MD 06/28/16 Polyethylene Glycol 3350 (Healthylax) 17 Gm Powd.pack, 17 G PO DAILY for CONSTIPATION/STOOL SOFTENING for 30 Days Prov:TIM RODRIGUEZ MD 06/28/16 Calcium Carbonate (Tums) 300 Mg Tab.chew, 750 MG PO PRN Y for INDIGESTION for 30 Days Prov:TIM RODRIGUEZ MD 06/28/16 Albuterol Sulfate (Albuterol Sulfate) 2.5 Mg/3 Ml Vial.neb, 2.5 MG AEROSOL RTQ4WA Y for SHORTNESS OF AIR/WHEEZING for 30 Days Prov:TIM RODRIGUEZ MD 06/28/16 Meclizine HCl (Meclizine HCl) 25 Mg Tablet, 25 MG PO QID Y for DIZZINESS for 30 Days Take 1 tablet, by mouth, 2 times a day. Prov:TIM RODRIGUEZ MD 06/28/16 Reported Medications Albuterol Sulfate (Ventolin HFA 90 mcg/actuation) 18 Gm Hfa.aer.ad, 1 PUFF ORAL INH Q4H Y for SHORTNESS OF AIR/WHEEZING 06/17/16 Calcium Carbonate (Calcium) 600 Mg Tablet, 600 MG PO DAILY 06/17/16 Acetaminophen (Acetaminophen Extra Strength) 500 Mg Tablet, 1-2 TAB PO PRN Y for PAIN 06/17/16 Ondansetron (Ondansetron Odt) 4 Mg Tab.rapdis, 4 MG PO Q4HR Y for NAUSEA &/OR VOMITING 11/12/15 Polyvinyl Alcohol/Povidone/Pf (Refresh Classic Eye Drops) 1 Each Droperette, 1 DROP BOTH EYES DAILY, ML 11/12/15 Alprazolam (Alprazolam) 0.5 Mg Tablet, 0.25 MG PO HS Y for PRN ORDERS 08/25/15 Multivitamin (Multivitamins) 1 Each Tablet, 1 TAB PO DAILY 12/14/13 Metoprolol Succinate (Metoprolol Succinate) 50 Mg Tab.er.24h, 25 MG PO BID, TAB 12/14/13 Levothyroxine Sodium (Levothyroxine Sodium) 25 Mcg Tablet, 25 MCG PO ACB 12/14/13 Atorvastatin Calcium (Atorvastatin Calcium) 10 Mg Tablet, 10 MG PO HS 12/14/13 Omeprazole (Prilosec) 20 Mg Capsule.dr, 20 MG PO BID 06/17/11 Latanoprost (Xalatan) 2.5 Ml Drops, 1 DROP OP DAILY 01/15/11 Aspirin (Aspir 81) 81 Mg Tablet.dr, 81 MG PO DAILY 04/13/08 Discontinued Reported Medications [Pea Protein] No Conflict Check, 1 DOSE PO DAILY 06/17/16 Potassium Chloride (Potassium Chloride) 20 Meq Tab.er.prt, 20 MEQ PO BID 06/17/16 Furosemide (Lasix) 20 Mg Tablet, 40 MG PO DAILY 04/27/15 Allergies: Coded Allergies: morphine (Verified Allergy, Intermediate, ITCHING,HOT, 06/17/16) propoxyphene HCl (Verified Allergy, Unknown, 06/17/16) codeine (Unverified Adverse Reaction, Intermediate, VOMITING, 06/17/16) hydrocodone (Verified Adverse Reaction, Intermediate, VOMITING, 06/17/16) meperidine (Verified Adverse Reaction, Intermediate, VOMITING, 06/17/16) oxycodone (Unverified Adverse Reaction, Unknown, CONFUSION, 06/17/16) Family History Family History: Extensive coronary disease and hypertension Social History Smoking Status: Never smoker Does patient use chewing tobac: No Substance Use Type: does not use Alcohol Intake: occasionally Marital Status: Current Occupational Status: retired Advance Directives: Yes DPOA for Healthcare Only (daughter), Yes Full Code, Yes Living Will Social History Comments Primary care provider, Dr. Cordoba Review of Systems Integumentary Comments Erythema to skin on left hand- no resolved All Other Systems All Other Systems: Reviewed (remainder of 10-point ROS Neg.) Physical Exam General General Nourishment: well nourished, well developed Vital Signs Vital Signs Date Time Temp Pulse Resp B/P Pulse Ox O2 Delivery O2 Flow Rate FiO2 06/29/16 07:00 56 06/29/16 07:00 16 96 06/28/16 21:00 97.6 172/74 Room Air Height (Feet): 5 Height (Inches): 3.00 Eyes Brief: FOUND: EOMI, PERRL Comments Diminished bilaterally Cardiovascular (brief) Cardiac Brief: FOUND: regular rate, regular rhythm, NOT FOUND: murmur, pedal edema Abdomen (brief) Abdominal Brief: FOUND: BS normo active x4, soft, NOT FOUND: distended, tender Integumentary (brief) Integumentary Brief: FOUND: dry, pink, warm Neurologic (brief) Neurological Brief: FOUND: cranial 2-12 intact (grossly), motor (Equal bialterall x4 ext) Neurologic RN Documented GCS Eye Opening: Verbal: Motor: Total: Psychiatric (brief) FOUND: alert, attentive, normal affect, oriented Laboratory Laboratory Tests Test 06/29/16 04:16 White Blood Count 10.2T/MM3 Red Blood Count 3.82M/MM3 Hemoglobin 12.3GM/DL Hematocrit 37.8% Mean Corpuscular Volume 99.0UM3 Mean Corpuscular Hemoglobin 32.2UUG Mean Corpuscular Hemoglobin Concent 32.5GM/DL RDW Standard Deviation 47.5FL Platelet Count 126T/MM3 Mean Platelet Volume 12.8UM3 Immature Granulocyte % (Auto) 0.2% Neutrophils (%) (Auto) 68.9% Lymphocytes (%) (Auto) 22.2% Monocytes (%) (Auto) 8.7% Eosinophils (%) (Auto) 0.0% Basophils (%) (Auto) 0.0% Absolute Immature Granulocyte (auto 0.02T/MM3 Absolute Neutrophils (auto) 7.1T/MM3 Absolute Lymphocytes (auto) 2.3T/MM3 Absolute Monocytes (auto) 0.9T/MM3 Absolute Eosinophils (auto) 0.0T/MM3 Absolute Basophils (auto) 0.0T/MM3 Turbidity < 20 Sodium Level 135MEQ/L Potassium Level 4.6MEQ/L Chloride Level 101MEQ/L Carbon Dioxide Level 28MEQ/L Anion Gap 6MEQ/L Blood Urea Nitrogen 19.0MG/DL Creatinine 0.6MG/DL Glomerular Filtration Rate Calc 95 BUN/Creatinine Ratio 32RATIO Glucose Level 111MG/DL Calculated Osmolality 263MOSM/KG Calcium Level 8.7MG/DL Icterus Index < 2 Chemistry Specimen Hemolysis 27 Impression/Recommendation Problems: (1) Post concussion syndrome Status: Acute (2) Weakness Status: Acute (3) Vertigo Status: Acute (4) Ataxia Status: Acute (5) Pleural effusion, left Status: Chronic Assessment & Plan: Known to be malignant- Chronic (6) Breast cancer Status: Resolved Qualifiers: Laterality: left Assessment & Plan: With hx of metastatic disease (7) Normocytic anemia Status: Chronic (8) Lung disease Status: Chronic Assessment & Plan: Likely secondary to breast cancer (9) HTN (hypertension) Status: Chronic (10) CAD (coronary artery disease) Status: Chronic (11) Glaucoma Status: Chronic (12) Constipation Status: Chronic (13) Degenerative disc disease Status: Chronic (14) Dyslipidemia Status: Chronic (15) RA (rheumatoid arthritis) Status: Chronic Recommendation Agree with admission to inpatient rehabilitation unit under the care of Dr. Crain for further therapy to improve strength and function of lower extremity weakness and ataxia. Lumbar puncture was performed on 06/27/16- cerebrospinal fluid cytology has been ordered and is pending. Scopolamine patch was removed prior to transfer as it was possibly contributing to patient's encephalopathy Continue with Decadron BID. Dr Castillo recommended decreasing down to 2 mg BID. Will change this today. Can continue to taper as symptoms improve. Decadron was started on 06/24, 4mg BID at that time. Continue with meclizine as needed up to 4 times a day for vertigoes symptoms. Will continue to monitor blood pressure carefully and continue on Toprol-XL 25 milligrams twice a day Scheduled Colace 100 milligrams twice a day for ongoing bowel motivation Encourage work with PT/OT for ongoing strengthening. At time of discharge her medical care will return to her primary care provider, TIM Marlow MD 06/29/16 1401: Past Medical History Current Medications Home Meds Active Scripts Dexamethasone (Dexamethasone) 4 Mg Tablet, 4 MG PO BID.. for VERTIGO for 3 Days , #6 TAB Prov:TIM RODRIGUEZ MD 06/28/16 Sennosides/Docusate Sodium (Senna Plus Tablet) 1 Tab Tablet, 2 TAB PO BID for CONSTIPATION/STOOL SOFTENING for 30 Days, #120 TAB Prov:TIM RODRIGUEZ MD 06/28/16 Polyethylene Glycol 3350 (Healthylax) 17 Gm Powd.pack, 17 G PO DAILY for CONSTIPATION/STOOL SOFTENING for 30 Days Prov:TIM RODRIGUEZ MD 06/28/16 Calcium Carbonate (Tums) 300 Mg Tab.chew, 750 MG PO PRN Y for INDIGESTION for 30 Days Prov:TIM RODRIGUEZ MD 06/28/16 Albuterol Sulfate (Albuterol Sulfate) 2.5 Mg/3 Ml Vial.neb, 2.5 MG AEROSOL RTQ4WA Y for SHORTNESS OF AIR/WHEEZING for 30 Days Prov:TIM RODRIGUEZ MD 06/28/16 Meclizine HCl (Meclizine HCl) 25 Mg Tablet, 25 MG PO QID Y for DIZZINESS for 30 Days Take 1 tablet, by mouth, 2 times a day. Prov:TIM RODRIGUEZ MD 06/28/16 Reported Medications Albuterol Sulfate (Ventolin HFA 90 mcg/actuation) 18 Gm Hfa.aer.ad, 1 PUFF ORAL INH Q4H Y for SHORTNESS OF AIR/WHEEZING 06/17/16 Calcium Carbonate (Calcium) 600 Mg Tablet, 600 MG PO DAILY 06/17/16 Acetaminophen (Acetaminophen Extra Strength) 500 Mg Tablet, 1-2 TAB PO PRN Y for PAIN 06/17/16 Ondansetron (Ondansetron Odt) 4 Mg Tab.rapdis, 4 MG PO Q4HR Y for NAUSEA &/OR VOMITING 11/12/15 Polyvinyl Alcohol/Povidone/Pf (Refresh Classic Eye Drops) 1 Each Droperette, 1 DROP BOTH EYES DAILY, ML 11/12/15 Alprazolam (Alprazolam) 0.5 Mg Tablet, 0.25 MG PO HS Y for PRN ORDERS 08/25/15 Multivitamin (Multivitamins) 1 Each Tablet, 1 TAB PO DAILY 12/14/13 Metoprolol Succinate (Metoprolol Succinate) 50 Mg Tab.er.24h, 25 MG PO BID, TAB 12/14/13 Levothyroxine Sodium (Levothyroxine Sodium) 25 Mcg Tablet, 25 MCG PO ACB 12/14/13 Atorvastatin Calcium (Atorvastatin Calcium) 10 Mg Tablet, 10 MG PO HS 12/14/13 Omeprazole (Prilosec) 20 Mg Capsule.dr, 20 MG PO BID 06/17/11 Latanoprost (Xalatan) 2.5 Ml Drops, 1 DROP OP DAILY 01/15/11 Aspirin (Aspir 81) 81 Mg Tablet.dr, 81 MG PO DAILY 04/13/08 Discontinued Reported Medications [Pea Protein] No Conflict Check, 1 DOSE PO DAILY 06/17/16 Potassium Chloride (Potassium Chloride) 20 Meq Tab.er.prt, 20 MEQ PO BID 06/17/16 Furosemide (Lasix) 20 Mg Tablet, 40 MG PO DAILY 04/27/15 Allergies: Coded Allergies: morphine (Verified Allergy, Intermediate, ITCHING,HOT, 06/17/16) propoxyphene HCl (Verified Allergy, Unknown, 06/17/16) codeine (Unverified Adverse Reaction, Intermediate, VOMITING, 06/17/16) hydrocodone (Verified Adverse Reaction, Intermediate, VOMITING, 06/17/16) meperidine (Verified Adverse Reaction, Intermediate, VOMITING, 06/17/16) oxycodone (Unverified Adverse Reaction, Unknown, CONFUSION, 06/17/16) Impression/Recommendation Impression I have independently evaluated and examined this patient. I reviewed the chart, the patient's history, and the FLUME WORKER's documented findings as above. We discussed and formulated the assessment and plan as above with additions as below: Iris transfer to IRU yesterday evening. She reports increased vertigo today but no confusion or difficulty finding words as she experienced the last 2 days. She continues to have difficulty raising her legs at the hips and complains of minor arthralgias especially at the shoulders indicating she typically uses Aspercreme as needed. On examination respirations are nonlabored and there is slight reduction in breath sounds at the left base. The patient is alert and cooperative, speech is fluent but she is somewhat anxious. Cardiac rhythm is regular and abdomen benign. Patient is unable to raise her legs straight off the bed using the iliopsoas but can slide her heels toward her buttocks and can dorsiflex and plantarflex symmetrically. 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 CSF cytology and perineoplastic panels on CSF and serum are pending. Blood pressure has been modestly elevated since transfer, typically not this high during the acute hospital stay. Agree with decreasing Decadron to 2 mg twice a day. Confusion improved with elimination of scopolamine patch but vertigo has worsened-schedule meclizine 3 times a day and reassess. Extensive imaging by CT and MRI of the brain and entire back obtained during the acute stay without evidence of acute pathology. Recommendation Laboratory data an old record reviewed. BISMARK ALANIZ APRN Jun 29, 2016 08:37 TIM RODRIGUEZ MD Jun 29, 2016 14:01
--- NOTE | 2016-06-29 09:51 | NUR ---
DEANA MANN IS 10. MONITOR FOR [employer]. Addendum: 06/29/16 at 0952 by ROSETTE ZAVALA Amended: Links added.
[2016-06-29] MEDS: ACETAMINOPHEN 500 MG TABLET PO PRN ×2 (13:28→22:09)
[2016-06-29] MEDS ORDERED: TROLAMINE SALICYLATE 85 GM TUBE TOP PRN (14:00)
--- NOTE | 2016-06-29 14:01 | PDIRUTEAM ---
Multidisciplinary Team Meeting Nursing Hx Incontinence: No Bladder Goal: 7+ Complete [place] Y/N: No Bladder Continent or Incontine: Continent Incontinent Product Used: Pull-up Number of Times Incontinent of: 0 Cleaning Ability-Bladder: 5 Supervision/Setup Bowel Incontinent/Continent: Continent Bowel Number of Accidents: 0 Number of times Incontinent of: 0 Toileting Ability: 4 Minimal Assistance Vital Signs Vital Signs Date Time Temp Pulse Resp B/P Pulse Ox O2 Delivery O2 Flow Rate FiO2 06/29/16 08:16 98.3 70 18 178/71 97 Room Air Current Medications Current Medications Medications (Trade) Dose Ordered Sig/Barb Route PRN Reason Start Time Stop Time Status Last Admin Dose Admin Acetaminophen (Tylenol Extra Strength) 1-2 tabs PRN PRN PO PAIN 06/28/16 19:00 06/29/16 13:28 Albuterol Sulfate (Proventil 2.5 Mg/3 ml) 2.5 mg RTQ4WA PRN AEROSOL SHORTNESS OF AIR / WHEEZING 06/29/16 07:00 06/29/16 06:59 Aspirin (Ecotrin) 81 mg DAILY PO 06/29/16 09:00 06/29/16 08:36 Atorvastatin Calcium (LIPITOR 10 mg) 10 mg HS PO 06/28/16 22:00 06/28/16 21:15 Calcium Carbonate (TUMS Extra Strength) 750 mg PRN PRN PO INDIGESTION 06/28/16 19:00 06/28/16 21:23 Dexamethasone (Decadron) 4 mg BID.. PO 06/29/16 09:00 06/29/16 09:00 DC 06/29/16 08:36 Latanoprost (Xalatan) 1 drop DAILY BOTH EYES 06/29/16 09:00 06/29/16 08:36 Levothyroxine Sodium (Synthroid) 25 mcg ACB PO 06/29/16 06:30 06/29/16 06:29 Meclizine HCl (Antivert 25 Mg) 25 mg QID PRN PO DIZZINESS 06/28/16 19:00 06/29/16 13:54 DC 06/29/16 08:41 Metoprolol Succinate (TOPROL XL 50 mg) 25 mg BID PO 06/28/16 21:00 06/29/16 08:35 Multivitamins/ Minerals (Therapeutic - M) 1 tab DAILY PO 06/29/16 09:00 06/29/16 08:35 Omeprazole (Prilosec) 20 mg BID PO 06/28/16 21:00 06/29/16 08:36 Artificial Tears (Refresh Classic Drops) 1 drop DAILY BOTH EYES 06/29/16 09:00 06/29/16 08:36 Comments METs cancer, fear of met to brain. LP pending. Prev bilat breast cancer. Physical Therapy Bed Transfer Ability: 6 Modified From[place] Bed Transfer Assistance Needed: 1 Person Chair Transfer Ability: 5 Supervision/Setup Chair Transfer Assistance Need: 1 Person Overall Toilet / Commode Trans: 4 Minimal Assistance Ambulation Ability: 4 Minimal Assistance Ambulation Assistance Needed: 1 Person Ambulation Distance: 303 Comments FIMS 4+. Tremor with walking. [place] hard Occupational Therapy Grooming Ability: 5 Supervision/Setup Bathing Ability: 5 Supervision/Setup Upper Body Dressing Ability: 5 Supervision/Setup Lower Body Dressing Ability: 4 Minimal Assistance Lower Body Dressing Assistance: 1 Person Toileting Assistance Needed: 1 Person Toileting FIM Score Reason: DIZZINESS Comments FIMS 4+ pleasant cooperative. DIff coordinating movement of foot when initially getting up this am. Care Plan IRU Discharge Disposition: Home, self care ( [facility]) Interventions/Goals Barriers to d/c: coordination,safety, weakness, endurance. ?confusion? d/c scopolamine patch reeval one week. ANDRZEJ PETTIT MD Jun 29, 2016 13:58
--- NOTE | 2016-06-29 15:03 | HPPDOC ---
HPI Date DATE: 06/29/16 TIME: 14:55 General Chief Complaint: postconcussive syndrome with ataxia and vertigo History of Present Illness 85-year-old female admitted to IRU with postconcussive syndrome. June 17 she fell, was evaluated through ED 6 days after the fall. She developed bilateral lower leg weakness and had to be admitted inpatient. She has a history of bilateral breast cancer, with metastatic disease. Neurology was consults and is concerned that she may have metastatic disease to brain, lumbar punctures been performed and data is pending. This time she is unable to provide care for herself due to weakness and encephalopathy. She'll be admitted to IRU for physical therapy occupational therapy. Past Medical History Past Medical History CAD Moderate aortic insufficiency GERD Breast cancer initially diagnosed over years ago with recurrence after 22 years, managed by Dr. Fulton Left malignant pleural effusion Glaucoma Hypothyroidism Hyperlipidemia Surgical History Patient's Surgical History: Cholecystectomy- 2011 Left shoulder [id number] ? Cardiac Bypass with stent placement - [facility] Cardiac stent- Dr Joseph Heart Cath- Dr Esquivel- 2015 Bilateral Mastectomy- Left breast Carcinoma(1991), Right breast elected mastectomy(1994) Dr Marie Colonoscopy- 2011 Placement of left Pleurx catheter 06/2015, Removal- 08/2015 (Dr Gastelum) Current Medications Home Meds Active Scripts Dexamethasone (Dexamethasone) 4 Mg Tablet, 4 MG PO BID.. for VERTIGO for 3 Days , #6 TAB Prov:TIM FITZGERALD MD 06/28/16 Sennosides/Docusate Sodium (Senna Plus Tablet) 1 Tab Tablet, 2 TAB PO BID for CONSTIPATION/STOOL SOFTENING for 30 Days, #120 TAB Prov:TIM FITZGERALD MD 06/28/16 Polyethylene Glycol 3350 (Healthylax) 17 Gm Powd.pack, 17 G PO DAILY for CONSTIPATION/STOOL SOFTENING for 30 Days Prov:TIM FITZGERALD MD 06/28/16 Calcium Carbonate (Tums) 300 Mg Tab.chew, 750 MG PO PRN Y for INDIGESTION for 30 Days Prov:TIM FITZGERALD MD 06/28/16 Albuterol Sulfate (Albuterol Sulfate) 2.5 Mg/3 Ml Vial.neb, 2.5 MG AEROSOL RTQ4WA Y for SHORTNESS OF AIR/WHEEZING for 30 Days Prov:ITM FITZGERALD MD 06/28/16 Meclizine HCl (Meclizine HCl) 25 Mg Tablet, 25 MG PO QID Y for DIZZINESS for 30 Days Take 1 tablet, by mouth, 2 times a day. Prov:TIM FITZGERALD MD 06/28/16 Reported Medications Albuterol Sulfate (Ventolin HFA 90 mcg/actuation) 18 Gm Hfa.aer.ad, 1 PUFF ORAL INH Q4H Y for SHORTNESS OF AIR/WHEEZING 06/17/16 Calcium Carbonate (Calcium) 600 Mg Tablet, 600 MG PO DAILY 06/17/16 Acetaminophen (Acetaminophen Extra Strength) 500 Mg Tablet, 1-2 TAB PO PRN Y for PAIN 06/17/16 Ondansetron (Ondansetron Odt) 4 Mg Tab.rapdis, 4 MG PO Q4HR Y for NAUSEA &/OR VOMITING 11/12/15 Polyvinyl Alcohol/Povidone/Pf (Refresh Classic Eye Drops) 1 Each Droperette, 1 DROP BOTH EYES DAILY, ML 11/12/15 Alprazolam (Alprazolam) 0.5 Mg Tablet, 0.25 MG PO HS Y for PRN ORDERS 08/25/15 Multivitamin (Multivitamins) 1 Each Tablet, 1 TAB PO DAILY 12/14/13 Metoprolol Succinate (Metoprolol Succinate) 50 Mg Tab.er.24h, 25 MG PO BID, TAB 12/14/13 Levothyroxine Sodium (Levothyroxine Sodium) 25 Mcg Tablet, 25 MCG PO ACB 12/14/13 Atorvastatin Calcium (Atorvastatin Calcium) 10 Mg Tablet, 10 MG PO HS 12/14/13 Omeprazole (Prilosec) 20 Mg Capsule.dr, 20 MG PO BID 06/17/11 Latanoprost (Xalatan) 2.5 Ml Drops, 1 DROP OP DAILY 01/15/11 Aspirin (Aspir 81) 81 Mg Tablet.dr, 81 MG PO DAILY 04/13/08 Discontinued Reported Medications [Pea Protein] No Conflict Check, 1 DOSE PO DAILY 06/17/16 Potassium Chloride (Potassium Chloride) 20 Meq Tab.er.prt, 20 MEQ PO BID 06/17/16 Furosemide (Lasix) 20 Mg Tablet, 40 MG PO DAILY 04/27/15 Allergies: Coded Allergies: morphine (Verified Allergy, Intermediate, ITCHING,HOT, 06/17/16) propoxyphene HCl (Verified Allergy, Unknown, 06/17/16) codeine (Unverified Adverse Reaction, Intermediate, VOMITING, 06/17/16) hydrocodone (Verified Adverse Reaction, Intermediate, VOMITING, 06/17/16) meperidine (Verified Adverse Reaction, Intermediate, VOMITING, 06/17/16) oxycodone (Unverified Adverse Reaction, Unknown, CONFUSION, 06/17/16) Family History Family History: Extensive coronary disease and hypertension Social History Smoking Status: Never smoker Does patient use chewing tobac: No Substance Use Type: does not use Alcohol Intake: occasionally Marital Status: Current Occupational Status: retired Advance Directives: Yes DPOA for Healthcare Only (daughter), Yes Full Code, Yes Living Will Review of Systems Musculoskeletal General: see HPI Neurological General: see HPI All Other Systems All Other Systems: Reviewed Physical Exam General General Nourishment: well nourished, well developed Vital Signs Vital Signs Date Time Temp Pulse Resp B/P Pulse Ox O2 Delivery O2 Flow Rate FiO2 06/29/16 08:16 98.3 70 18 178/71 97 Room Air Height (Feet): 5 Height (Inches): 3.00 Telemetry Rhythm: Sinus Rhythm Eyes Brief: FOUND: EOMI, PERRL ENMT Brief: FOUND: TM clear, TM good light reflex Neck Brief: NOT FOUND: adenopathy, carotid bruits, thyromegaly Respiratory Brief: FOUND: clear all epps, equal bilaterally Cardiovascular (brief) Cardiac Brief: FOUND: regular rate, regular rhythm Abdomen (brief) Abdominal Brief: FOUND: BS normo active x4, soft, NOT FOUND: tender Neurologic (brief) Neurological Brief: FOUND: cranial 2-12 intact, motor (4+ bilat lower ext.), sensory Neurologic RN Documented GCS Eye Opening: Verbal: Motor: Total: Laboratory Laboratory Tests Test 06/29/16 04:16 White Blood Count 10.2T/MM3 Red Blood Count 3.82M/MM3 Hemoglobin 12.3GM/DL Hematocrit 37.8% Mean Corpuscular Volume 99.0UM3 Mean Corpuscular Hemoglobin 32.2UUG Mean Corpuscular Hemoglobin Concent 32.5GM/DL RDW Standard Deviation 47.5FL Platelet Count 126T/MM3 Mean Platelet Volume 12.8UM3 Immature Granulocyte % (Auto) 0.2% Neutrophils (%) (Auto) 68.9% Lymphocytes (%) (Auto) 22.2% Monocytes (%) (Auto) 8.7% Eosinophils (%) (Auto) 0.0% Basophils (%) (Auto) 0.0% Absolute Immature Granulocyte (auto 0.02T/MM3 Absolute Neutrophils (auto) 7.1T/MM3 Absolute Lymphocytes (auto) 2.3T/MM3 Absolute Monocytes (auto) 0.9T/MM3 Absolute Eosinophils (auto) 0.0T/MM3 Absolute Basophils (auto) 0.0T/MM3 Turbidity < 20 Sodium Level 135MEQ/L Potassium Level 4.6MEQ/L Chloride Level 101MEQ/L Carbon Dioxide Level 28MEQ/L Anion Gap 6MEQ/L Blood Urea Nitrogen 19.0MG/DL Creatinine 0.6MG/DL Glomerular Filtration Rate Calc 95 BUN/Creatinine Ratio 32RATIO Glucose Level 111MG/DL Calculated Osmolality 263MOSM/KG Calcium Level 8.7MG/DL Icterus Index < 2 Chemistry Specimen Hemolysis 27 Assessment & Plan Problems: (1) Ataxia Status: Acute Assessment & Plan: Physical therapy and occupational therapy will be consult in to provide plan of care to increase strength and mobility. Safety Issues to be addressed. (2) Vertigo Status: Acute Assessment & Plan: Safety issues to be addressed. (3) Post concussion syndrome Status: Acute Assessment & Plan: Managed by medical DVT Prophylaxis: ROBIN Barboza Code Status Full Code Interventions to Obtain Goals PT Treatment Plan: Therapeutic Exercise, Gait Training, Functional Activities , Patient/Family Education, Balance/Proprioception OT Treatment Plan: ADL's (basic care), Ther. Exercise for ADL's, UE Functional Training, Balance Training, Pt./Family Education, IADL's Hospital Course Summary Disclaimer The hospital course summary below is not to be considered part of the above Progress Note. ANDRZEJ PETTIT MD Jun 29, 2016 14:59
--- NOTE | 2016-06-29 15:14 | IRU24PDOC ---
24 Hour Post Admission Eval Relevant Changes Relevant Changes: No I have reviewed the patient's information and concur with the finding and results of the pre-admission screen. Certification I certify the patient for rehabilitation. Patient Condition Prior Medical Conditions: (1) Ataxia Status: Acute Additional Information: Physical therapy and occupational therapy will be consult in to provide plan of care to increase strength and mobility. Safety Issues to be addressed. (2) Vertigo Status: Acute Additional Information: Safety issues to be addressed. (3) Post concussion syndrome Status: Acute Additional Information: Managed by medical Current Medical Conditions: (1) Ataxia Status: Acute Additional Information: Physical therapy and occupational therapy will be consult in to provide plan of care to increase strength and mobility. Safety Issues to be addressed. (2) Vertigo Status: Acute Additional Information: Safety issues to be addressed. (3) Post concussion syndrome Status: Acute Additional Information: Managed by medical Prior Functional Condition Lives With: Alone Residence Type: Private home/apartment Assistive Devices: No Assistive Device Prior Functional Status: Indep. at home or school Current Functional Status Failed Alternative Therapy Tri: Arrived from acute care Patient Requirements * Patient has been determined to have significant functional limitations requiring at least two therapy disciplines. * Rehabilitation medical practitioner will provide admission approval, assessment and oversight and program coordination at least daily. * Intensive rehabilitative nursing services on site and available 24 hours a day. * The treatment plan will be developed within 24 hours of admission. * Interdisciplinary and goal oriented treatment by professional nursing, psychiatric social worker supervisor, and rehabilitation therapist. * Interdisciplinary team meeting weekly inclusive of ongoing comprehensive discharge planning. First team meeting by day seven. Weekly meetings to follow. * Rehab Physician is the team meeting leader. * Pharmacy and diagnostic services will be available. * Ongoing comprehensive rehab program with at least 2 disciplines and greater than or equal to 3 hours a day, 5 days a week. Limitations require: mobility impairment, ADL impairment, cognitive impairment Physical Therapy Minutes: 90 Occupational Therapy Minutes: 90 Therapy The patient is to receive therapy at least 5 days a week. Current Functional Status: Using assistive device PT Treatment Plan: Therapeutic Exercise, Gait Training, Functional Activities , Patient/Family Education, Balance/Proprioception Treatment Plan Frequency: five times per week Treatment Plan Duration: two weeks Plan of Care Comment: 6x/wk for 1st wk; 5x/wk for following wks. OT Treatment Plan: ADL's (basic care), Ther. Exercise for ADL's, UE Functional Training, Balance Training, Pt./Family Education, IADL's OT Treatment Plan Frequency: five times per week OT Treatment Plan Duration: three weeks ROM Comment: B LE ROM is WFL both actively and passively; see OT eval for UE ROM Muscle Weakness Location: Left Lower Extremity, Right Lower Extremity Complication/Comorbidities Patient Complication Risk: (1) Ataxia Status: Acute Comments: Physical therapy and occupational therapy will be consult in to provide plan of care to increase strength and mobility. Safety Issues to be addressed. (2) Vertigo Status: Acute Comments: Safety issues to be addressed. (3) Post concussion syndrome Status: Acute Comments: Managed by medical Impact on Functional Outcomes slowed recovery due to head injury Barriers to Discharge: weakness, endurance Plan to Avoid Complications Plan to Avoid Complications The patient cannot receive this care in a lesser intensive setting such as Senior Care or Outpatient Therapy due to the patient requiring the following post concussive sx.. The patient requires oversight by a rehabilitation physician to manage their rehabilitation treatment plan and the multidisciplinary approach to care that can only be provided in an IRF and requires a multidisciplinary approach to care , provided by professional PTs, OTs, STs, dieticians, RTs, rehabilitation nurses and is not available in lesser levels of care. The frequency and duration for therapy, as recommended by the professional Rehabilitation therapists, meet the patient's initial rehabilitation treatment plan needs and will be further evaluated on a weekly basis for progress and/or changes needed. ANDRZEJ PETTIT MD Jun 29, 2016 15:08
[2016-06-29 16:00] VITALS: BP 162/76; PULSE 64; RESP 18; TEMP 98; O2SAT 98
[2016-06-29] MEDS: MECLIZINE 25 MG TABLET PO SCH ×2 (16:00→21:00)
--- NOTE | 2016-06-29 18:16 | NUR ---
CM SPOKE WITH PT, INTRODUCED SELF, EXPLAINED ROLE, PROVIDED CONTACT INFO. PT SAID SHE LIVES AT [facility]DEP[facility] AT [facility], AND HER DC PLAN IS TO RETURN. SHE HAS A DAUGHTER FOR SUPPORT. 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 SHE HAD NO QUESTIONS/NEEDS FOR THIS WORKER. ENCOURAGED HER TO CALL IF QUESTIONS DO ARISE. Addendum: 06/29/16 at 1818 by ROSETTE ZAVALA Amended: Links added.
--- NOTE | 2016-06-29 19:33 | NUR ---
Shift Summary Pt is resting in bed at this time. Ambulates well with assist of 1, FWW, and gait belt. Has been continent this shift, able to manage clothing and hygiene cares. Has reported pain to the arms this afternoon, gave Tylenol 1000mg at 1328, upon reassessment she reported her pain was better. Ate well for meals today, did not need assist with her tray, ambulates to the dining room. She does need some cues and encouragement with some transfers but overall does well. When in bed or the chair the alarm is in use and call light is within reach.
[2016-06-29 19:35] VITALS: BP 173/69; PULSE 60; RESP 18; TEMP 98.1; O2SAT 97
[2016-06-29] MEDS: ATORVASTATIN 10 MG TABLET PO SCH (20:59)
[2016-06-29] MEDS: DEXAMETHASONE 1 MG TABLET PO SCH (21:00)
[2016-06-30] VITALS (7 sets, daily range): BP systolic 145–176; BP diastolic 66–76; PULSE 56–61; RESP 16–20; TEMP 97.6–98.1; O2SAT 97–98
--- NOTE | 2016-06-30 04:29 | NUR ---
CHART CHECK 24hr chart check completed.
--- NOTE | 2016-06-30 06:03 | NUR ---
SHIFT SUMMARY Iris has slept well during this shift. She requested 2 PRN APAP at 2210 for headache, but rated pain at "nothing". She seemed to know she had pain but at that moment could not rate it. Dizziness when first arising from bed. She states it resolves after a couple of minutes. Alert and oriented most of time. Does have episodes of forgetfulness when she can't recall details. But most of the time, she recalls things clearly. Seems to forget that she hit her head and that is likely why she is dizzy. Noted 2 bruises: one on each buttock. She reports this is from her "cancer shots". She explained that she gets them monthly for cancer in the fluid around her chest cavity.
[2016-06-30] MEDS: LEVOTHYROXINE 25 MCG TABLET PO SCH (06:34)
[2016-06-30] MEDS: MECLIZINE 25 MG TABLET PO SCH ×3 (08:48→21:20)
[2016-06-30] MEDS: CALCIUM CARBONATE 600 MG TABLET PO SCH (08:49)
[2016-06-30] MEDS: DOCUSATE SODIUM 100 MG CAPSULE PO SCH ×2 (08:49→21:00)
[2016-06-30] MEDS: ASPIRIN *EC* 81mg TABLET PO SCH (08:50)
[2016-06-30] MEDS: OMEPRAZOLE 20 MG CAPSULE PO SCH ×2 (08:50→21:21)
[2016-06-30] MEDS: DEXAMETHASONE 1 MG TABLET PO SCH ×2 (08:50→21:21)
[2016-06-30] MEDS: MULTIVITAMIN + MINERAL TABLET PO SCH (08:50)
[2016-06-30] MEDS: SENNA + DOCUSATE TAB PO SCH ×2 (08:51→21:00)
[2016-06-30] MEDS: REFRESH CLASSIC Eye Drops 0.4ml Dropperette BOTH EYES SCH (08:55)
[2016-06-30] MEDS: LATANOPROST 0.005% EYE DROPS 2.5 ML BOTTLE BOTH EYES SCH (08:56)
[2016-06-30] MEDS: POLYETHYL.GLYCOL 3350 PACKET 17gm PO SCH (09:00)
[2016-06-30] MEDS: METOPROLOL XL 50 MG TABLET PO SCH ×2 (09:05→21:22)
[2016-06-30] MEDS: ACETAMINOPHEN 500 MG TABLET PO PRN (13:44)
--- NOTE | 2016-06-30 16:12 | PNPDOC ---
IRU Subjective Date DATE: 06/30/16 TIME: 16:10 Subjective Patient is cooperative with physical therapy and occupational therapy. Does eat in the Commons area. Tired and resting at this time. IRU Objective Vital Signs Vital signs Vital Signs Date Time Temp Pulse Resp B/P Pulse Ox O2 Delivery O2 Flow Rate FiO2 06/30/16 07:39 56 16 06/30/16 07:36 97.8 165/72 97 Room Air Telemetry Rhythm: Sinus Rhythm Height (Feet): 5 Height (Inches): 3.00 Weight (Kilograms): 56.500 General General Appearance: Alert, Orientated x 2 Respiratory (Brief) Respiratory: FOUND: clear all epps, equal bilaterally, NOT FOUND: rales, wheezes Cardiovascular (Brief) Cardiac: FOUND: regular rate, regular rhythm Abdomen (Brief) Abdominal: FOUND: BS normo active x4, soft, NOT FOUND: tender Laboratory Laboratory Laboratory Tests Test 06/29/16 04:16 White Blood Count 10.2T/MM3 Red Blood Count 3.82M/MM3 Hemoglobin 12.3GM/DL Hematocrit 37.8% Mean Corpuscular Volume 99.0UM3 Mean Corpuscular Hemoglobin 32.2UUG Mean Corpuscular Hemoglobin Concent 32.5GM/DL RDW Standard Deviation 47.5FL Platelet Count 126T/MM3 Mean Platelet Volume 12.8UM3 Immature Granulocyte % (Auto) 0.2% Neutrophils (%) (Auto) 68.9% Lymphocytes (%) (Auto) 22.2% Monocytes (%) (Auto) 8.7% Eosinophils (%) (Auto) 0.0% Basophils (%) (Auto) 0.0% Absolute Immature Granulocyte (auto 0.02T/MM3 Absolute Neutrophils (auto) 7.1T/MM3 Absolute Lymphocytes (auto) 2.3T/MM3 Absolute Monocytes (auto) 0.9T/MM3 Absolute Eosinophils (auto) 0.0T/MM3 Absolute Basophils (auto) 0.0T/MM3 Turbidity < 20 Sodium Level 135MEQ/L Potassium Level 4.6MEQ/L Chloride Level 101MEQ/L Carbon Dioxide Level 28MEQ/L Anion Gap 6MEQ/L Blood Urea Nitrogen 19.0MG/DL Creatinine 0.6MG/DL Glomerular Filtration Rate Calc 95 BUN/Creatinine Ratio 32RATIO Glucose Level 111MG/DL Calculated Osmolality 263MOSM/KG Calcium Level 8.7MG/DL Icterus Index < 2 Chemistry Specimen Hemolysis 27 Assessment & Plan Problems: (1) Ataxia Status: Acute Assessment & Plan: Strengthening and stability plan of care established with PT and OT continue with plan. (2) Vertigo Status: Acute Assessment & Plan: Medical to manage, PT and OT working on safety plan with patient. (3) Post concussion syndrome Status: Acute Assessment & Plan: Patient having difficulty remembering safety plan, he is requiring reminders by staff. Continue with PT and OT care. Medical to manage other issues with this. Code Status Full Code Interventions to Obtain Goals PT Treatment Plan: Therapeutic Exercise, Gait Training, Functional Activities , Patient/Family Education, Balance/Proprioception OT Treatment Plan: ADL's (basic care), Ther. Exercise for ADL's, UE Functional Training, Balance Training, Pt./Family Education, IADL's Hospital Course Summary Disclaimer The hospital course summary below is not to be considered part of the above Progress Note. ANDRZEJ PETTIT MD Jun 30, 2016 16:12
--- NOTE | 2016-06-30 16:14 | PDIRUOPC ---
Overall Plan of Care Date DATE: 06/30/16 TIME: 16:12 Relevant Changes Relevant Changes: No I have reviewed the patient's information and concur with the finding and results of the pre-admission screen. Certification I certify the patient for rehabilitation. Patient Impairments Prior Medical Conditions: (1) Ataxia Status: Acute Additional Information: Strengthening and stability plan of care established with PT and OT continue with plan. (2) Vertigo Status: Acute Additional Information: Medical to manage, PT and OT working on safety plan with patient. (3) Post concussion syndrome Status: Acute Additional Information: Patient having difficulty remembering safety plan, he is requiring reminders by staff. Continue with PT and OT care. Medical to manage other issues with this. Current Medical Conditions: (1) Ataxia Status: Acute Additional Information: Strengthening and stability plan of care established with PT and OT continue with plan. (2) Vertigo Status: Acute Additional Information: Medical to manage, PT and OT working on safety plan with patient. (3) Post concussion syndrome Status: Acute Additional Information: Patient having difficulty remembering safety plan, he is requiring reminders by staff. Continue with PT and OT care. Medical to manage other issues with this. Medical Prognosis Fair IRF Tx That Should Address Dx: (1) Ataxia (2) Vertigo (3) Weakness Dx Requiring Medical FU: (1) Post concussion syndrome (2) RA (rheumatoid arthritis) (3) HTN (hypertension) Vital Signs Vital Signs Date Time Temp Pulse Resp B/P Pulse Ox O2 Delivery O2 Flow Rate FiO2 06/30/16 07:39 56 16 06/30/16 07:36 97.8 165/72 97 Room Air Laboratory Laboratory Tests Test 06/29/16 04:16 White Blood Count 10.2T/MM3 Red Blood Count 3.82M/MM3 Hemoglobin 12.3GM/DL Hematocrit 37.8% Mean Corpuscular Volume 99.0UM3 Mean Corpuscular Hemoglobin 32.2UUG Mean Corpuscular Hemoglobin Concent 32.5GM/DL RDW Standard Deviation 47.5FL Platelet Count 126T/MM3 Mean Platelet Volume 12.8UM3 Immature Granulocyte % (Auto) 0.2% Neutrophils (%) (Auto) 68.9% Lymphocytes (%) (Auto) 22.2% Monocytes (%) (Auto) 8.7% Eosinophils (%) (Auto) 0.0% Basophils (%) (Auto) 0.0% Absolute Immature Granulocyte (auto 0.02T/MM3 Absolute Neutrophils (auto) 7.1T/MM3 Absolute Lymphocytes (auto) 2.3T/MM3 Absolute Monocytes (auto) 0.9T/MM3 Absolute Eosinophils (auto) 0.0T/MM3 Absolute Basophils (auto) 0.0T/MM3 Turbidity < 20 Sodium Level 135MEQ/L Potassium Level 4.6MEQ/L Chloride Level 101MEQ/L Carbon Dioxide Level 28MEQ/L Anion Gap 6MEQ/L Blood Urea Nitrogen 19.0MG/DL Creatinine 0.6MG/DL Glomerular Filtration Rate Calc 95 BUN/Creatinine Ratio 32RATIO Glucose Level 111MG/DL Calculated Osmolality 263MOSM/KG Calcium Level 8.7MG/DL Icterus Index < 2 Chemistry Specimen Hemolysis 27 Anticipated Interventions The patient requires inpatient IRF care for PT, OT, and/or ST for 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 FIM Scores Ambulation Distance: 123 Wheelchair Propulsion Distance: 0 Ambulation Ability: 2 Maximum Assistance Ambulation Assistance Needed: 1 Person Walk FIM Score Reason: The pt walked 78ft and 123 ft with the fww and 4/7 assist.The FIM score is 2/7 assist due to distance. Stairs: 2 Maximum Assistance Stair Assistance Needed: 1 Person Number of Stairs: 8 Reason for Stair FIM: d/t number of steps; with 4/7 min A Eating Ability-FIM: 6 Modified [place] Grooming Ability: 6 Modified [place] Bathing Ability: 5 Supervision/Setup Upper Body Dressing Ability: 6 Modified [place] Lower Body Dressing Ability: 5 Supervision/Setup Lower Body Dressing Assistance: 1 Person Toileting Ability: 5 Supervision/Setup Toileting Assistance Needed: 1 Person Toileting FIM Score Reason: DIZZINESS Bed Transfer Ability: 5 Supervision/Setup Bed Transfer Assistance Needed: 1 Person Chair Transfer Ability: 5 Supervision/Setup Chair Transfer Assistance Need: 1 Person Overall Toilet / Commode Trans: 5 Supervision/Setup Toilet / Commode Transfer Assi: 1 Person Toilet FIM Score Reason: LOB Tub / Shower Transfer Ability: 4 Minimal Assistance Tub / Shower Transfer [place]: 1 Person Comprehension Ability: 6 Modified [place] Comprehension FIM Score Reason: FORGETFUL Social Interaction: 7+ Complete [place] Problem Solvin Modified [place] Expression Ability: 7+ Complete [place] Memory: 5 Supervision/Setup Memory FIM Score Reason: FORGETFUL Current Functional Status Failed Alternative Therapy: Arrived from acute care Patient Requires * Patient has been determined to have significant functional limitations requiring at least two therapy disciplines. * Rehabilitation medical practitioner will provide admission approval, assessment and oversight and program coordination at least daily. * Intensive rehabilitative nursing services on site and available 24 hours a day. * The treatment plan will be developed within 24 hours of admission. * Interdisciplinary and goal oriented treatment by professional nursing, manager social services, and rehabilitation therapist. * Interdisciplinary team meeting weekly inclusive of ongoing comprehensive discharge planning. First team meeting by . Weekly meetings to follow. * Rehab Physician is the team meeting leader. * Pharmacy and diagnostic services will be available. * Ongoing comprehensive rehab program with at least 2 disciplines and greater than or equal to 3 hours a day, 5 days a week. Limitations require: mobility impairment, ADL impairment, cognitive impairment Physical Therapy Minutes: 90 Occupational Therapy Minutes: 90 Therapy The patient is to receive therapy at least 5 days a week. PT Treatment Plan: Therapeutic Exercise, Gait Training, Functional Activities , Patient/Family Education, Balance/Proprioception Treatment Plan Frequency: five times per week Treatment Plan Duration: two weeks Plan of Care Comment: 6x/wk for 1st wk; 5x/wk for following wks. OT Treatment Plan: ADL's (basic care), Ther. Exercise for ADL's, UE Functional Training, Balance Training, Pt./Family Education, IADL's OT Treatment Plan Frequency: five times per week OT Treatment Plan Duration: three weeks Anticapted LOS/Outcomes Anticipated Functional Outcome Patient should ultimately improved her preinjury status. Anticipated DC Destination: Home, self care ( [facility]) Home Safety Plan The patient will be provided with the development of a Home Safety Plan for return to a home or home-like environment and to ensure safety post discharge. Complicating Conditions Complications since IRF admit: (1) Ataxia Status: Acute Comments: Strengthening and stability plan of care established with PT and OT continue with plan. (2) Vertigo Status: Acute Comments: Medical to manage, PT and OT working on safety plan with patient. (3) Post concussion syndrome Status: Acute Comments: Patient having difficulty remembering safety plan, he is requiring reminders by staff. Continue with PT and OT care. Medical to manage other issues with this. Other Contributing Factors: Plan to Avoid Complications Barriers to Attaining Goals: weakness, balance, medical limitation Plan to Avoid Complications The patient cannot receive this care in a lesser intensive setting such as Detention or Outpatient Therapy due to the patient requiring the following postconcussion syndrome. The patient requires oversight by a rehabilitation physician to manage their rehabilitation treatment plan and the multidisciplinary approach to care that can only be provided in an IRF and requires a multidisciplinary approach to care , provided by professional PTs, OTs, STs, dieticians, RTs, rehabilitation nurses and is not available in lesser levels of care. The frequency and duration for therapy, as recommended by the professional Rehabilitation therapists, meet the patient's initial rehabilitation treatment plan needs and will be further evaluated on a weekly basis for progress and/or changes needed. ANDRZEJ PETTIT MD Jun 30, 2016 16:14
--- NOTE | 2016-06-30 18:59 | NUR ---
SUMMARY Pt has been pleasant, cooperative with cares, compliant with medications. cooperative with therapy. Pt has been coming out of to the dining room for meals. Pt has been doing ADL with SBA, she uses FWW and gait belt is used per protocol. Pt has been independent with hygiene cares and oral cares. Pt continues to have an IV lock on her right forearm, IV is patent and flushes without any problems. Pt complained of pain and states her pain is only when she is doing therapy. Pt got Tylenol 500 mg PRN this shift, during follow up she denied pain. Pt denies needs or concerns at the moment.
[2016-06-30] MEDS: ATORVASTATIN 10 MG TABLET PO SCH (21:22)
--- NOTE | 2016-06-30 21:52 | NUR ---
STATUS. PT HAS BEEN ALERT AND OX3. CALLS FOR BR ASSIST. USING FWW AND GAITBELT WITH 1 SBA. PT TAKES MEDS WHOLE WITH SIPS OF WATER. PT REFUSED SCDS AT THIS TIME. PT REPORT SHE IS NOT ABLE TO SLEEP WITH THEM ON. PT HAS DENIED DIZZINESS THIS EVENING.PT REPORTS "THAT MEDICATION I'M GETTING IS WORKING." PT IS ENJOYING WATCHING THE BASKETBALL GAMES.
[2016-07-01] VITALS (12 sets, daily range): BP systolic 153–213; BP diastolic 72–96; PULSE 60–102; RESP 18–20; TEMP 97.4–98.1; O2SAT 95–98
--- NOTE | 2016-07-01 00:34 | NUR ---
Chart Check 24 hour chart check completed
--- NOTE | 2016-07-01 02:42 | NUR ---
midshift note Pt is alert and orientated x3, pt can be forgetful at times, pt is up with assist x1 with FWW and gait belt, pt has dizziness when first sitting up in bed after lying down flat. Pt states the dizziness goes away after a few minutes. Pt ortho blood pressures done after pt ambulated to bathroom and back. Pt states she has no pain, pt refuses to wear scd's states she is unable to sleep with them on. Pt is now in bed with 2 bed rails up and bed alarm on.
[2016-07-01] MEDS: LEVOTHYROXINE 25 MCG TABLET PO SCH (06:00)
--- NOTE | 2016-07-01 06:23 | NUR ---
shift summary Pt is pleasant and cooperative x3, pt can be forgetful at times, pt is able to make needs know, pt has appropriate use of the call light, pt ambulates and transfers with assist x1 with front wheeled walker and gait belt, pt has no complaints of pain. Pt wears own underwear, pt is continent of bowel and bladder, pt pacemaker incision is approximate with steri strips intact, pt safety aware to not to raise arms up, pt refused scd's during night, pt states she is unable to sleep, pt has two bed rails up and bed alarm on.
[2016-07-01] MEDS: OMEPRAZOLE 20 MG CAPSULE PO SCH ×2 (08:22→20:10)
[2016-07-01] MEDS: MULTIVITAMIN + MINERAL TABLET PO SCH (08:22)
[2016-07-01] MEDS: MECLIZINE 25 MG TABLET PO SCH ×3 (08:23→20:10)
[2016-07-01] MEDS: ASPIRIN *EC* 81mg TABLET PO SCH (08:23)
[2016-07-01] MEDS: DEXAMETHASONE 1 MG TABLET PO SCH ×2 (08:23→20:09)
[2016-07-01] MEDS: CALCIUM CARBONATE 600 MG TABLET PO SCH (08:23)
[2016-07-01] MEDS: REFRESH CLASSIC Eye Drops 0.4ml Dropperette BOTH EYES SCH (08:25)
[2016-07-01] MEDS: POLYETHYL.GLYCOL 3350 PACKET 17gm PO SCH (08:26)
[2016-07-01] MEDS: SENNA + DOCUSATE TAB PO SCH ×2 (08:26→21:00)
[2016-07-01] MEDS: DOCUSATE SODIUM 100 MG CAPSULE PO SCH ×2 (08:26→21:00)
[2016-07-01] MEDS: LATANOPROST 0.005% EYE DROPS 2.5 ML BOTTLE BOTH EYES SCH (08:26)
[2016-07-01] MEDS: METOPROLOL XL 50 MG TABLET PO SCH ×3 (08:38→20:10)
--- NOTE | 2016-07-01 17:52 | NUR ---
SHIFT SUMMARY PT HAS BEEN PLEASANT AND COOPERATIVE. HAS BEEN OUT TO DINING ROOM FOR MEALS. HAS WORKED WITH THERAPY. AMBULATES WITH FWW AND GAIT BELT. PT HAS BEEN CONTINENT TODAY.
[2016-07-01] MEDS: ACETAMINOPHEN 500 MG TABLET PO PRN (18:16)
[2016-07-01] MEDS: ATORVASTATIN 10 MG TABLET PO SCH (20:09)
--- NOTE | 2016-07-01 23:01 | NUR ---
Blood Pressure Medication Patient refused whole tablet of Metoprolol, as her blood pressure was in her normal range (158/72), and she normally takes a half tab at home. She was afraid that taking the increased dose twice in one day would drop her blood pressure too much. She agreed to reconsider if her blood pressure was too high again in the morning.
--- NOTE | 2016-07-02 00:19 | NUR ---
Chart Check 24 hour chart check completed
[2016-07-02] MEDS: LEVOTHYROXINE 25 MCG TABLET PO SCH (06:58)
--- NOTE | 2016-07-02 07:25 | NUR ---
Summary Patient alert and oriented times three, pleasant and cooperative. She is up with FWW and gait belt, and supervision. She pulled chain in bathroom to call staff, but immediately got up and was custodial to her bed before I got to her. She remembered right away and apologized for getting up without us. She waited for staff the rest of the shift. She has been continent and has provided her own hygiene and managed her own clothes. She reported Tylenol yesterday took care of her headache. When in bed call light is within reach, bed alarm on and side rails up times two.
[2016-07-02 08:00] VITALS: BP 161/84; PULSE 60; RESP 18; O2SAT 96
[2016-07-02] MEDS: ASPIRIN *EC* 81mg TABLET PO SCH (08:19)
[2016-07-02] MEDS: METOPROLOL XL 50 MG TABLET PO SCH ×2 (08:19→21:06)
[2016-07-02] MEDS: MULTIVITAMIN + MINERAL TABLET PO SCH (08:19)
[2016-07-02] MEDS: CALCIUM CARBONATE 600 MG TABLET PO SCH ×2 (08:19→08:26)
[2016-07-02] MEDS: DEXAMETHASONE 1 MG TABLET PO SCH ×2 (08:20→21:07)
[2016-07-02] MEDS: MECLIZINE 25 MG TABLET PO SCH ×3 (08:20→21:07)
[2016-07-02] MEDS: OMEPRAZOLE 20 MG CAPSULE PO SCH ×2 (08:20→21:07)
[2016-07-02] MEDS: DOCUSATE SODIUM 100 MG CAPSULE PO SCH ×2 (08:21→21:00)
[2016-07-02] MEDS: POLYETHYL.GLYCOL 3350 PACKET 17gm PO SCH (08:21)
[2016-07-02] MEDS: SENNA + DOCUSATE TAB PO SCH ×2 (08:21→21:00)
[2016-07-02] MEDS: ACETAMINOPHEN 500 MG TABLET PO PRN ×2 (09:49→21:14)
[2016-07-02 09:57] VITALS: BP 180/70; TEMP 97.4
--- NOTE | 2016-07-02 10:00 | NUR ---
Status Pt. is currently working with therapy. HAND CROCHETER reports that pt. reports she feels like she has a "fat head." Pt. reports that she feels pressure in her head and that this is how she feels when her BP is high and requests PRN Tylenol. BP taken and noted to be 180/70. Please see VS's. PRN Tylenol administered. Please see eMAR. Will continue to monitor.
[2016-07-02] MEDS: LATANOPROST 0.005% EYE DROPS 2.5 ML BOTTLE BOTH EYES SCH (10:57)
[2016-07-02] MEDS: REFRESH CLASSIC Eye Drops 0.4ml Dropperette BOTH EYES SCH (10:57)
--- NOTE | 2016-07-02 11:00 | NUR ---
Tylenol Upon re-assessment, pt. reports Tylenol helped and she feels better.
[2016-07-02 11:04] VITALS: PULSE 60; RESP 18
[2016-07-02 16:18] VITALS: BP 182/76; PULSE 66; RESP 18; TEMP 97.9; O2SAT 96
[2016-07-02] MEDS ORDERED: REFRESH CLASSIC Eye Drops 0.4ml Dropperette BOTH EYES PRN (18:00)
--- NOTE | 2016-07-02 18:07 | NUR ---
Summary VS's stable. Pt. is on RA. She has denied nausea, pain and SOA this shift. Pt. is supervision with cares and transfers x1 assist with FWW and gait belt. Pt. does report dizziness at times when she first gets up. Educated pt. to go slowly and notify staff of dizziness. I/O adequate. Pt. has been continent. She takes meds whole. She is currently visiting in the dinning room. Will pass on report to overnight associate.
[2016-07-02 20:00] VITALS: BP 149/70; PULSE 59; RESP 18; TEMP 97.9; O2SAT 94
[2016-07-02] MEDS: ATORVASTATIN 10 MG TABLET PO SCH (21:07)
--- NOTE | 2016-07-02 21:24 | NUR ---
prn given Pt states her arms are sore 2/10 Tylenol 1000mg po given, pt refused Colace and Sennokot tonight, pt did have a bowel movement on days. Pt is able to handle her own pericare and clothing. Pt is now in bed watching the [employer] game, pt refused SCD's states she is unable to sleep with them on. Pt is in bed with 2 bed rails up and bed alarm on.
--- NOTE | 2016-07-02 22:25 | NUR ---
prn update Pt is resting in bed, pt states her arm pain is better 1/10, pt is in bed with 2 bed rails up and bed alarm on.
[2016-07-03] VITALS (7 sets, daily range): BP systolic 148–192; BP diastolic 63–78; PULSE 59–63; RESP 16–18; TEMP 97.5–98.1; O2SAT 94–97
--- NOTE | 2016-07-03 01:39 | NUR ---
Chart Check 24 hour chart check completed
[2016-07-03] MEDS: LEVOTHYROXINE 25 MCG TABLET PO SCH (05:58)
--- NOTE | 2016-07-03 06:13 | NUR ---
shift summary Pt is alert and orientated x3, pt is up with FWW and gait belt, pt is a high fall risk, pt vital signs stable, pt complained of arm pain and given Tylenol at 21:34, pt states the Tylenol helped and she was able to rest well during the night. Pt wears her own underwear and has been continent of bladder during night cleaner, pt is able to manage own clothing and pericare with standby assist. pt wears glasses. Pt is able to make needs know. Pt is in bed with 2 bed rails up and bed alarm on.
[2016-07-03] MEDS: MECLIZINE 25 MG TABLET PO SCH ×3 (08:00→21:13)
[2016-07-03] MEDS: CALCIUM CARBONATE 750mg Chewable TAB PO PRN (08:00)
[2016-07-03] MEDS: MULTIVITAMIN + MINERAL TABLET PO SCH (08:00)
[2016-07-03] MEDS: DEXAMETHASONE 1 MG TABLET PO SCH ×2 (08:01→21:13)
[2016-07-03] MEDS: DOCUSATE SODIUM 100 MG CAPSULE PO SCH ×2 (08:01→21:00)
[2016-07-03] MEDS: CALCIUM CARBONATE 600 MG TABLET PO SCH (08:01)
[2016-07-03] MEDS: OMEPRAZOLE 20 MG CAPSULE PO SCH ×2 (08:01→21:13)
[2016-07-03] MEDS: ASPIRIN *EC* 81mg TABLET PO SCH (08:01)
[2016-07-03] MEDS: SENNA + DOCUSATE TAB PO SCH ×2 (08:02→21:00)
[2016-07-03] MEDS: METOPROLOL XL 50 MG TABLET PO SCH ×2 (08:02→21:14)
[2016-07-03] MEDS: POLYETHYL.GLYCOL 3350 PACKET 17gm PO SCH (08:02)
[2016-07-03] MEDS: LATANOPROST 0.005% EYE DROPS 2.5 ML BOTTLE BOTH EYES SCH (08:03)
[2016-07-03] MEDS: REFRESH CLASSIC Eye Drops 0.4ml Dropperette BOTH EYES SCH (08:03)
--- NOTE | 2016-07-03 17:07 | NUR ---
B/P pt scheduled vs were taken and it was elevated 192/78. [place] mid-level was notified by phone. Orders were to retake in 30 min and give update.
--- NOTE | 2016-07-03 18:04 | NUR ---
SHIFT SUMMARY PT HAS BEEN A&O X3 FOR THIS SHIFT. PT IS UP WITH GB, FWW AND AX1. PT HAS BEEN CONTINENT AND ASKED TO WALK, PT WAS ABLE TO WALK DOWN TO THE FRONT LOBBY AND BACK. PT WAS DOING PT SUGGESTED EXERCISES AND IS EAGER TO "DO WELL AND GO HOME". PT ATE ALL MEALS IN DINNING ROOM. PT HAS BEEN CONTINENT AND IS ABLE TO MAKE NEEDS KNOWN TO STAFF. PT HAS HAD NO C/O PAIN FOR THIS SHIFT. WILL CONTINUE TO MONITOR TILL END OF SHIFT REPORT.
--- NOTE | 2016-07-03 21:01 | PNPDOC ---
IRU Subjective Date DATE: 07/03/16 TIME: 20:59 Subjective Pt comfortable in chair, does feel like dizziness still an issue, but says otherwise she is recovering well. Is able to remember events of yesterday. IRU Objective Vital Signs Vital signs Vital Signs Date Time Temp Pulse Resp B/P Pulse Ox O2 Delivery O2 Flow Rate FiO2 07/03/16 20:02 63 18 07/03/16 17:48 183/76 96 Room Air 07/03/16 16:59 97.5 Telemetry Rhythm: Sinus Rhythm Height (Feet): 5 Height (Inches): 3.00 Weight (Kilograms): 56.500 General General Appearance: Alert, Orientated x 2 Respiratory (Brief) Respiratory: FOUND: clear all epps, equal bilaterally Cardiovascular (Brief) Cardiac: FOUND: regular rate, regular rhythm Assessment & Plan Problems: (1) Ataxia Status: Acute Assessment & Plan: PT and OT working with pt. Will reassess during this next week. (2) Vertigo Status: Acute Assessment & Plan: Using walker for safety, cont with antivert. (3) Post concussion syndrome Status: Acute Assessment & Plan: medical to manage. Code Status Full Code Interventions to Obtain Goals PT Treatment Plan: Therapeutic Exercise, Gait Training, Functional Activities , Patient/Family Education, Balance/Proprioception OT Treatment Plan: ADL's (basic care), Ther. Exercise for ADL's, UE Functional Training, Balance Training, Pt./Family Education, IADL's Hospital Course Summary Disclaimer The hospital course summary below is not to be considered part of the above Progress Note. ANDRZEJ PETTIT MD Jul 03, 2016 21:01
[2016-07-03] MEDS: ATORVASTATIN 10 MG TABLET PO SCH (21:14)
--- NOTE | 2016-07-03 21:34 | NUR ---
STATUS. PT HAS BEEN ALERT AND OX3. PLEASANT AND COOPERATIVE. TAKES MEDS WHOLE WITH SIPS OF WATER. PT REPORTS DIZZINESS IS MUCH BETTER WITH MECLIZINE. PT HAS BEEN CONT B AND B. CALLS APPROPRIATELY, MAKES NEEDS KNOWN.
[2016-07-03] MEDS: ACETAMINOPHEN 500 MG TABLET PO PRN (23:20)
--- NOTE | 2016-07-03 23:20 | NUR ---
prn given Pt having arm pain 2/10 Tylenol given, pt in bed with 2 bed rails up and bed alarm
--- NOTE | 2016-07-04 01:26 | NUR ---
prn update Pt is sleeping in bed with 2 bed rails up and bed alarm on.
--- NOTE | 2016-07-04 02:23 | NUR ---
Chart Check 24 hour chart check completed
[2016-07-04] MEDS: LEVOTHYROXINE 25 MCG TABLET PO SCH (05:42)
[2016-07-04] MEDS: ACETAMINOPHEN 500 MG TABLET PO PRN ×2 (05:45→21:05)
--- NOTE | 2016-07-04 06:03 | NUR ---
shift summary Pt is alert and orientated x3, pt is up with assist x1 with front wheeled walker, pt takes her medications whole, pt wears her own underwear no incontinence, pt able to manage her own clothes with supervision. Pt took pain medications at 23:20 and 05:30 for arm pain, pt is in bed with 2 bed rails up and bed alarm on.
[2016-07-04 08:00] VITALS: PULSE 61; RESP 16
[2016-07-04 08:20] VITALS: BP 142/70; PULSE 61; RESP 16; TEMP 98.5; O2SAT 95
[2016-07-04] MEDS: DOCUSATE SODIUM 100 MG CAPSULE PO SCH ×2 (08:20→20:47)
[2016-07-04] MEDS: SENNA + DOCUSATE TAB PO SCH ×2 (08:21→20:47)
[2016-07-04] MEDS: POLYETHYL.GLYCOL 3350 PACKET 17gm PO SCH (08:21)
[2016-07-04] MEDS: REFRESH CLASSIC Eye Drops 0.4ml Dropperette BOTH EYES SCH (08:22)
[2016-07-04] MEDS: ASPIRIN *EC* 81mg TABLET PO SCH (08:22)
[2016-07-04] MEDS: MULTIVITAMIN + MINERAL TABLET PO SCH (08:22)
[2016-07-04] MEDS: MECLIZINE 25 MG TABLET PO SCH ×3 (08:22→20:50)
[2016-07-04] MEDS: CALCIUM CARBONATE 600 MG TABLET PO SCH ×2 (08:22→08:26)
[2016-07-04] MEDS: OMEPRAZOLE 20 MG CAPSULE PO SCH ×2 (08:22→20:49)
[2016-07-04] MEDS: LATANOPROST 0.005% EYE DROPS 2.5 ML BOTTLE BOTH EYES SCH (08:22)
[2016-07-04] MEDS: METOPROLOL XL 50 MG TABLET PO SCH ×2 (08:22→20:49)
[2016-07-04] MEDS: DEXAMETHASONE 1 MG TABLET PO SCH ×2 (08:22→20:49)
--- NOTE | 2016-07-04 14:24 | PNPDOC ---
Subjective Date DATE: 07/04/16 TIME: 14:03 Subjective Iris is seen today finishing up with therapy. She is seen ambulating in the [place] carrying a load of laundry. She continues to have some intermittent dizziness. She did undergo the Dayami maneuver this morning by PT to see if this decreases amount of dizziness. She otherwise has no complaints including pain, shortness of breath or GI difficulties. Blood pressure 142/70. Objective Vital Signs Vital signs Vital Signs Date Time Temp Pulse Resp B/P Pulse Ox O2 Delivery O2 Flow Rate FiO2 07/04/16 08:20 98.5 61 16 142/70 95 Room Air Telemetry Rhythm: Sinus Rhythm Height (Feet): 5 Height (Inches): 3.00 Weight (Kilograms): 56.500 General General Appearance: Alert, Orientated x 3, Cooperative, No Acute Distress Eyes (Brief) Eyes: FOUND: EOMI ENMT (Brief) ENMT: FOUND: mucosa moist, normal dentition, NOT FOUND: pharnyx erythema Neck (Brief) Neck: FOUND: midline, NOT FOUND: adenopathy, carotid bruits, tracheal deviation Respiratory (Brief) Respiratory: FOUND: clear all epps, equal bilaterally, NOT FOUND: wheezes Cardiovascular (Brief) Cardiac: FOUND: regular rate, regular rhythm, NOT FOUND: murmur, pedal edema Capillary Refill: <2 sec Abdomen (Brief) Abdominal: FOUND: BS normo active x4, soft, NOT FOUND: distended, tender Lymphatic (Brief) Lymphatic: NOT FOUND: adenopathy Musculoskeletal (Brief) Musculoskeletal: NOT FOUND: tenderness Integumentary (Brief) Integumentary: FOUND: dry, pink, warm Neurologic (Brief) Neurological: FOUND: cranial 2-12 intact Psychiatric (Brief) Psychiatric: FOUND: alert, attentive, normal affect, oriented Assessment & Plan Problems: (1) Post concussion syndrome Status: Acute (2) Weakness Status: Acute (3) Vertigo Status: Acute (4) Ataxia Status: Acute (5) Pleural effusion, 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 Will continue to evaluate for further episodes of dizziness. PT reports may try opposite side tomorrow if patient continues to be symptomatic. No evidence of nystagmus present. Overall medically appears stable Reviewed all Paraneoplastic syndrome studies which were found to be negative Continue to encourage work with PT/OT for ongoing strengthening. Code Status Full Code Hospital Course Summary Disclaimer The hospital course summary below is not to be considered part of the above Progress Note. Hospital Course Summary 07/04/16 Dayami maneuver performed by PT today. Will continue to evaluate for further episodes of dizziness. PT reports may try opposite side tomorrow if patient continues to be symptomatic. No evidence of nystagmus present. Overall medically appears stable Reviewed all Paraneoplastic syndrome studies which were found to be negative Continue to encourage work with PT/OT for ongoing strengthening. BISMARK ALANIZ APRN Jul 04, 2016 14:09
[2016-07-04 16:02] VITALS: BP 167/73; PULSE 59; RESP 16; TEMP 96.9; O2SAT 96
--- NOTE | 2016-07-04 17:33 | NUR ---
Shift Summary Pt has done well this shift. Ambulates well with stand by assist of 1 and gait belt. Has been continent this shift, able to manage her own clothing and cares. Worked well with therapy today. Had several visitors throughout the shift. Ate well for all meals, did not need assist with her tray, ambulated to meals. She has denied pain. Interacts well with staff and other patients, enjoys the conversation in the dining room. When getting in and out of the recliner and bed just needs stand by assist. When in bed or the chair the alarm is in use and call light is within reach.
[2016-07-04 19:47] VITALS: BP 149/70; PULSE 54; RESP 16; TEMP 97.7; O2SAT 98
[2016-07-04] MEDS: ATORVASTATIN 10 MG TABLET PO SCH (20:49)
--- NOTE | 2016-07-04 23:10 | PNPDOC ---
IRU Subjective Date DATE: 07/04/16 TIME: 23:08 Subjective Pt feeling much better. Working with OT and PT this am . She feels like she is making improvement. IRU Objective Vital Signs Vital signs Vital Signs Date Time Temp Pulse Resp B/P Pulse Ox O2 Delivery O2 Flow Rate FiO2 07/04/16 19:47 97.7 54 16 149/70 98 Room Air Telemetry Rhythm: Sinus Rhythm Height (Feet): 5 Height (Inches): 3.00 Weight (Kilograms): 56.500 General General Appearance: Alert, Orientated x 3 Respiratory (Brief) Respiratory: FOUND: clear all epps, equal bilaterally, NOT FOUND: rales, wheezes Cardiovascular (Brief) Cardiac: FOUND: regular rate, regular rhythm, NOT FOUND: pedal edema Capillary Refill: <2 sec Assessment & Plan Problems: (1) Ataxia Status: Acute Assessment & Plan: Pt observed walking in [place] with OT. She has much improved gait. Spoke with PT and She is nearly meeting goals. Plan 2-3 more days of therapy. (2) Vertigo Status: Acute Assessment & Plan: stable. taking meds. (3) Post concussion syndrome Status: Acute Assessment & Plan: managed by medical. Code Status Full Code Interventions to Obtain Goals PT Treatment Plan: Therapeutic Exercise, Gait Training, Functional Activities , Patient/Family Education, Balance/Proprioception OT Treatment Plan: ADL's (basic care), Ther. Exercise for ADL's, UE Functional Training, Balance Training, Pt./Family Education, IADL's Hospital Course Summary Disclaimer The hospital course summary below is not to be considered part of the above Progress Note. Hospital Course Summary 07/04/16 Dayami maneuver performed by PT today. Will continue to evaluate for further episodes of dizziness. PT reports may try opposite side tomorrow if patient continues to be symptomatic. No evidence of nystagmus present. Overall medically appears stable Reviewed all Paraneoplastic syndrome studies which were found to be negative Continue to encourage work with PT/OT for ongoing strengthening. ANDRZEJ PETTIT MD Jul 04, 2016 23:10
--- NOTE | 2016-07-05 02:37 | NUR ---
Chart Check 24 hour chart check completed
--- NOTE | 2016-07-05 05:12 | NUR ---
Summary Pt has used the call light appropriately this shift and has waited for staff to arrive before ambulating. Pt has managed her own clothing, including retrieving them from the closet. Pt ambulates steady with gait belt and standby assist. Pt has denied dizziness this shift. Pt has ambulated quickly to the bathroom with urinary urgency. Pt has displayed safety by utilizing toilet riser hand rails when sitting, even when in a hurry. Pt had complaint of L shoulder pain rt arthritis, controlled with PRN Tylenol. Pt states she has slept well, when she has been able to sleep, between BR visits to void bladder.
[2016-07-05] MEDS: LEVOTHYROXINE 25 MCG TABLET PO SCH (06:40)
[2016-07-05] MEDS: METOPROLOL XL 50 MG TABLET PO SCH ×2 (07:58→22:13)
[2016-07-05] MEDS: MULTIVITAMIN + MINERAL TABLET PO SCH (07:59)
[2016-07-05 08:00] VITALS: BP 164/69; PULSE 64; RESP 18; TEMP 98.2; O2SAT 97
[2016-07-05] MEDS: POLYETHYL.GLYCOL 3350 PACKET 17gm PO SCH (08:00)
[2016-07-05] MEDS: MECLIZINE 25 MG TABLET PO SCH ×3 (08:00→21:00)
[2016-07-05] MEDS: ASPIRIN *EC* 81mg TABLET PO SCH (08:00)
[2016-07-05] MEDS: OMEPRAZOLE 20 MG CAPSULE PO SCH ×2 (08:00→22:12)
[2016-07-05] MEDS: DEXAMETHASONE 1 MG TABLET PO SCH ×2 (08:00→22:11)
[2016-07-05] MEDS: SENNA + DOCUSATE TAB PO SCH ×2 (08:01→21:00)
[2016-07-05] MEDS: DOCUSATE SODIUM 100 MG CAPSULE PO SCH ×2 (08:03→21:00)
[2016-07-05] MEDS: CALCIUM CARBONATE 600 MG TABLET PO SCH (08:04)
[2016-07-05] MEDS: REFRESH CLASSIC Eye Drops 0.4ml Dropperette BOTH EYES SCH (08:13)
[2016-07-05] MEDS: LATANOPROST 0.005% EYE DROPS 2.5 ML BOTTLE BOTH EYES SCH (08:13)
[2016-07-05] MEDS: ACETAMINOPHEN 500 MG TABLET PO PRN ×2 (11:54→22:14)
--- NOTE | 2016-07-05 12:14 | NUR ---
CM THIS WORKER VISITED PT IN ROOM, PT LAYING UP IN BED. THIS WORKER INTRODUCED SELF AND ROLE OF CASE MANAGEMENT. THIS WORKED STATED TO PT HER DISCHARGE SHOULD BE 07/06/16, PT IS EXCITED TO LEAVE HOSPITAL. THIS WORKER DISCUSSED WITH PT IM LETTER, PT SIGNED AND DATED AND HAD NO QUESTIONS. THIS WORKER WENT OVER DISCHARGE PLANNING WITH PT, PT STATED HER DAUGHTERTATIANNA WILL PICK HER UP AND SHE WILL RETURN BACK TO [facility]. THIS WORKER WENT OVER RTOP WITH PT, PT DECLINED STATING THE NURSE AT [facility] WILL FOLLOW AND ASSIST HER. THIS WORKER WENT OVER HOME HEALTH OPTIONS, PT DECLINED STATING "SHE DRIVES AND WANT TO CONTINUE TO DRIVE AND DOES NOT WANT TO BE HOME BOUND". Addendum: 07/05/16 at 1223 by ALEX ZAVALA Amended: Links added.
--- NOTE | 2016-07-05 13:35 | NUR ---
Activity Patient order for being Modidfied Independent on the unit received. Patient looking forward to going home tomorrow.
[2016-07-05] MEDS: ALBUTEROL INH.SOLN. 2.5mg/3ml (0.083%) Neb. AEROSOL PRN (14:04)
[2016-07-05 14:06] VITALS: O2SAT 97
--- NOTE | 2016-07-05 15:18 | NUR ---
Medication Patient refused meclizine at this time, stating she is no longer dizzy and wants to try going without it.
[2016-07-05 16:00] VITALS: BP 178/81; PULSE 66; RESP 18; TEMP 97.6; O2SAT 98
--- NOTE | 2016-07-05 17:18 | NUR ---
Shift Summry Patient alert and oriented x3. Patient wears glasses. Patient able to ambulate without assist of device on the unit or in room. Patient Mod I on unit and in room. Dressing self without assist of staff. Grooming independently. Did not want bath today. Is looking forward to going home sometime tomorrow.
[2016-07-05 20:38] VITALS: BP 186/78; PULSE 68; RESP 16; TEMP 98.3; O2SAT 96
[2016-07-05] MEDS: ATORVASTATIN 10 MG TABLET PO SCH (22:13)
[2016-07-05 22:15] VITALS: PULSE 68; RESP 16
--- NOTE | 2016-07-06 00:55 | NUR ---
Chart Check 24 hour chart check completed
--- NOTE | 2016-07-06 01:27 | NUR ---
Summary Iris is a pleasant and cooperative patient. She is alert and oriented x three. She reported a headache and was medicated with Tylenol 1000 mg and was asleep at reeval. She is up mod i to unit and to room.She is able to manage cares in her room.She takes her meds whole. She did refuse her Meclizine she wants to see if she can get along without it. She refused her bowel meds stating she can manage w/o them.Will continue to monitor.
[2016-07-06] MEDS: LEVOTHYROXINE 25 MCG TABLET PO SCH (05:38)
--- NOTE | 2016-07-06 05:49 | NUR ---
Summary Iris is awake in her room awaiting discharge. She is very happy. She states that she got along fine in her room.She sat up in bed and reports no dizziness.
[2016-07-06 07:42] VITALS: BP 172/67; PULSE 60; RESP 14; TEMP 98; O2SAT 97
[2016-07-06 08:00] VITALS: PULSE 60; RESP 14
[2016-07-06] MEDS: MECLIZINE 25 MG TABLET PO SCH ×2 (08:48→15:00)
[2016-07-06] MEDS: SENNA + DOCUSATE TAB PO SCH (08:49)
[2016-07-06] MEDS: POLYETHYL.GLYCOL 3350 PACKET 17gm PO SCH (08:49)
[2016-07-06] MEDS: CALCIUM CARBONATE 600 MG TABLET PO SCH (08:49)
[2016-07-06] MEDS: DOCUSATE SODIUM 100 MG CAPSULE PO SCH (08:49)
[2016-07-06] MEDS: METOPROLOL XL 50 MG TABLET PO SCH (08:52)
[2016-07-06] MEDS: ACETAMINOPHEN 500 MG TABLET PO PRN (08:52)
[2016-07-06] MEDS: DEXAMETHASONE 1 MG TABLET PO SCH (08:53)
[2016-07-06] MEDS: ASPIRIN *EC* 81mg TABLET PO SCH (08:53)
[2016-07-06] MEDS: MULTIVITAMIN + MINERAL TABLET PO SCH (08:53)
[2016-07-06] MEDS: OMEPRAZOLE 20 MG CAPSULE PO SCH (08:53)
[2016-07-06] MEDS: REFRESH CLASSIC Eye Drops 0.4ml Dropperette BOTH EYES SCH (08:54)
[2016-07-06] MEDS: LATANOPROST 0.005% EYE DROPS 2.5 ML BOTTLE BOTH EYES SCH (08:54)
--- NOTE | 2016-07-06 12:31 | PDIRUTEAM ---
Multidisciplinary Team Meeting Nursing Hx Incontinence: No Bladder Goal: 7+ Complete [place] Y/N: No Bladder Continent or Incontine: Continent Incontinent Product Used: Pull-up Cleaning Ability-Bladder: 7+ Complete [place] Bowel Goal: 7+ Complete [place] Colostomy Y/N: No Bowel Incontinent/Continent: Continent Bowel Number of Accidents: 0 Number of times Incontinent of: 0 Cleaning Ability-Bowel: 7+ Complete [place] Toileting Ability: 7+ Complete [place] Vital Signs Vital Signs Date Time Temp Pulse Resp B/P Pulse Ox O2 Delivery O2 Flow Rate FiO2 07/06/16 08:00 60 14 07/06/16 07:42 98.0 172/67 97 Room Air Current Medications Current Medications Medications (Trade) Dose Ordered Sig/Barb Route PRN Reason Start Time Stop Time Status Last Admin Dose Admin Docusate Sodium (Colace) 100 mg BID PO 06/28/16 21:00 06/30/16 08:49 Acetaminophen (Tylenol Extra Strength) 1-2 tabs PRN PRN PO PAIN 06/28/16 19:00 07/06/16 08:52 Albuterol Sulfate (Proventil 2.5 Mg/3 ml) 2.5 mg RTQ4WA PRN AEROSOL SHORTNESS OF AIR / WHEEZING 06/29/16 07:00 07/05/16 14:04 Aspirin (Ecotrin) 81 mg DAILY PO 06/29/16 09:00 07/06/16 08:53 Atorvastatin Calcium (LIPITOR 10 mg) 10 mg HS PO 06/28/16 22:00 07/05/16 22:13 Calcium Carbonate (Caltrate) 600 mg DAILY PO 06/29/16 09:00 07/03/16 08:01 Calcium Carbonate (TUMS Extra Strength) 750 mg PRN PRN PO INDIGESTION 06/28/16 19:00 07/03/16 08:00 Dexamethasone (Decadron) 4 mg BID.. PO 06/29/16 09:00 06/29/16 09:00 DC 06/29/16 08:36 Latanoprost (Xalatan) 1 drop DAILY BOTH EYES 06/29/16 09:00 07/06/16 08:54 Levothyroxine Sodium (Synthroid) 25 mcg ACB PO 06/29/16 06:30 07/06/16 05:38 Meclizine HCl (Antivert 25 Mg) 25 mg QID PRN PO DIZZINESS 06/28/16 19:00 06/29/16 13:54 DC 06/29/16 08:41 Metoprolol Succinate (TOPROL XL 50 mg) 25 mg BID PO 06/28/16 21:00 07/01/16 08:31 DC 06/30/16 21:22 Multivitamins/ Minerals (Therapeutic - M) 1 tab DAILY PO 06/29/16 09:00 07/06/16 08:53 Omeprazole (Prilosec) 20 mg BID PO 06/28/16 21:00 07/06/16 08:53 Artificial Tears (Refresh Classic Drops) 1 drop DAILY BOTH EYES 06/29/16 09:00 07/06/16 08:54 Senna/Docusate Sodium (Senna Plus) 2 tab BID PO 06/28/16 21:00 06/30/16 08:51 Dexamethasone (Decadron) 2 mg BID PO 06/29/16 21:00 07/06/16 08:53 Meclizine HCl (Antivert 25 Mg) 25 mg TID PO 06/29/16 15:00 07/05/16 08:00 Metoprolol Succinate (TOPROL XL 50 mg) 50 mg BID PO 07/01/16 08:30 07/06/16 08:52 Artificial Tears (Refresh Classic Drops) 1 drop PRN PRN BOTH EYES 07/02/16 18:00 07/02/16 18:39 Comments Meeting goals, planning d/c today. Physical Therapy Bed Transfer Ability: 7+ Complete [place] Bed Transfer Assistance Needed: 1 Person Bed FIM Score Reason: high fall risk, requires supervision Chair Transfer Ability: 7+ Complete [place] Chair Transfer Assistance Need: 1 Person Overall Toilet / Commode Trans: 7+ Complete [place] Ambulation Ability: 7+ Complete [place] Ambulation Assistance Needed: 1 Person Walk FIM Score Reason: SBA with pt using SPC Ambulation Distance: 1400 Comments FIMS 7's. Met all goals, d/c today. Occupational Therapy Grooming Ability: 7+ Complete [place] Bathing Ability: 6 Modified [place] Upper Body Dressing Ability: 7+ Complete [place] Lower Body Dressing Ability: 7+ Complete [place] Lower Body Dressing Assistance: 1 Person Toileting Assistance Needed: 1 Person Toileting FIM Score Reason: DIZZINESS Comments FIMS 7's. Care Plan Condition at time of discharge: Fair IRU Discharge Disposition: Home, self care ( [facility]) Interventions/Goals Nati Stephens. Declining home health, will drive to appointments. Cognition improved. No barriers to d/c at this time. ANDRZEJ PETTIT MD Jul 06, 2016 12:31
[2016-07-06] MEDS ORDERED: ALPR0.5T8 PO (12:44)
[2016-07-06] MEDS ORDERED: DEXA1TAB PO (12:44)
[2016-07-06] MEDS ORDERED: METO50TA9 PO (12:44)
--- NOTE | 2016-07-06 14:05 | DSPDOC ---
General Date Date DATE: 07/06/16 TIME: 14:01 Attending Physician Orville Pettit MD Admitting Physician Orville Pettit MD Consulting Physician Sigrid Rodriguez MD Admitting Diagnosis Neurologic Condition, vertigo, fall Discharge Diagnosis Post concussive syndrome, encephalopathy, vertigo, fall. History of Present Illness 85-year-old female admitted to IRU with postconcussive syndrome. June 17 she fell, was evaluated through ED 6 days after the fall. She developed bilateral lower leg weakness and had to be admitted inpatient. She has a history of bilateral breast cancer, with metastatic disease. Neurology was consults and is concerned that she may have metastatic disease to brain, lumbar punctures been performed and data is pending. This time she is unable to provide care for herself due to weakness and encephalopathy. She'll be admitted to IRU for physical therapy occupational therapy. Hospital Course Pt was admitted with PT and OT treatment. She improved with both effort and medical supervision. ANtivert helped with dizziness until Dayami maneuver performed and dizziness resolved. She is coherent and energetic at this point. Looking forward to returning home. Recommend continued PT adn OT involvement. 07/04/16 Dayami maneuver performed by PT today. Will continue to evaluate for further episodes of dizziness. PT reports may try opposite side tomorrow if patient continues to be symptomatic. No evidence of nystagmus present. Overall medically appears stable Reviewed all Paraneoplastic syndrome studies which were found to be negative Continue to encourage work with PT/OT for ongoing strengthening. Problems: Code Status Full Code Home Meds Active Scripts Dexamethasone (Dexamethasone) 1 Mg Tablet, 1 TAB PO BID for 14 Days, #15 TAB Take 1 mg BID for 5 days then decrease to 1 mg once a day for 5 days then stop Prov:BISMARK ALANIZ APRN 07/06/16 Metoprolol Succinate (Toprol Xl) 50 Mg Tab.er.24h, 50 MG PO BID for 30 Days, # 60 TAB Prov:BISMARK ALANIZ APRN 07/06/16 Alprazolam (Alprazolam) 0.5 Mg Tablet, 0.25 MG PO HS Y for PRN ORDERS for 30 Days Prov:BISMARK ALANIZ APRN 07/06/16 Sennosides/Docusate Sodium (Senna Plus Tablet) 1 Tab Tablet, 2 TAB PO BID for CONSTIPATION/STOOL SOFTENING for 30 Days, #120 TAB Prov:SIGRID RODRIGUEZ MD 06/28/16 Polyethylene Glycol 3350 (Healthylax) 17 Gm Powd.pack, 17 G PO DAILY for CONSTIPATION/STOOL SOFTENING for 30 Days Prov:SIGRID RODRIGUEZ MD 06/28/16 Calcium Carbonate (Tums) 300 Mg Tab.chew, 750 MG PO PRN Y for INDIGESTION for 30 Days Prov:SIGRID RODRIGUEZ MD 06/28/16 Albuterol Sulfate (Albuterol Sulfate) 2.5 Mg/3 Ml Vial.neb, 2.5 MG AEROSOL RTQ4WA Y for SHORTNESS OF AIR/WHEEZING for 30 Days Prov:SIGRID RODRIGUEZ MD 06/28/16 Meclizine HCl (Meclizine HCl) 25 Mg Tablet, 25 MG PO QID Y for DIZZINESS for 30 Days Take 1 tablet, by mouth, 2 times a day. Prov:SIGRID RODRIGUEZ MD 06/28/16 Reported Medications Albuterol Sulfate (Ventolin HFA 90 mcg/actuation) 18 Gm Hfa.aer.ad, 1 PUFF ORAL INH Q4H Y for SHORTNESS OF AIR/WHEEZING 06/17/16 Calcium Carbonate (Calcium) 600 Mg Tablet, 600 MG PO DAILY 06/17/16 Acetaminophen (Acetaminophen Extra Strength) 500 Mg Tablet, 1-2 TAB PO PRN Y for PAIN 06/17/16 Polyvinyl Alcohol/Povidone/Pf (Refresh Classic Eye Drops) 1 Each Droperette, 1 DROP BOTH EYES DAILY, ML 11/12/15 Multivitamin (Multivitamins) 1 Each Tablet, 1 TAB PO DAILY 12/14/13 Levothyroxine Sodium (Levothyroxine Sodium) 25 Mcg Tablet, 25 MCG PO ACB 12/14/13 Atorvastatin Calcium (Atorvastatin Calcium) 10 Mg Tablet, 10 MG PO HS 12/14/13 Omeprazole (Prilosec) 20 Mg Capsule.dr, 20 MG PO BID 06/17/11 Latanoprost (Xalatan) 2.5 Ml Drops, 1 DROP OP DAILY 01/15/11 Aspirin (Aspir 81) 81 Mg Tablet.dr, 81 MG PO DAILY 04/13/08 Discontinued Reported Medications Ondansetron (Ondansetron Odt) 4 Mg Tab.rapdis, 4 MG PO Q4HR Y for NAUSEA &/OR VOMITING 11/12/15 Metoprolol Succinate (Metoprolol Succinate) 50 Mg Tab.er.24h, 25 MG PO BID, TAB 12/14/13 Discontinued Scripts Dexamethasone (Dexamethasone) 4 Mg Tablet, 4 MG PO BID.. for VERTIGO for 3 Days , #6 TAB Prov:SIGRID RODRIGUEZ MD 06/28/16 Face to Face Encounter I met with patient on the day of dismissal and discussed follow up appointments , medications, and safety plan. Discharge Disposition to home ORVILLE PETTIT MD Jul 06, 2016 14:04
--- NOTE | 2016-07-06 16:00 | NUR ---
Shift Summary Pt is resting in the bed at this time. She has been Modified Fisher on the unit all shift, ambulates well. She has been continent able to manage own clothing and cares. Worked well with therapy today. Pt expresses that she is very happy that she is getting to go home today. She reported a little bit of a headache this AM which she received Tylenol 100mg at 0852, upon reassessment she reported that her headache was better. Ate well for all meals, did not need assist with her tray, ambulated to meals. Side rails have been up on her bed but she has not had the bed alarm on due to being on modified independence.
--- NOTE | 2016-07-06 16:05 | NUR ---
Discharge Pt was dismissed to home with her daughter. Ambulated to the front entrance with staff. Discharge information was given to pt which she did not have any questions, prescriptions given to pt, as well as teaching information about her medications. Her home medications were removed from the cubby and given to the pt. She reported that she was very happy to be going home.
[2016-07-06] MEDS ORDERED: DEXAMETHASONE 1 MG TABLET PO SCH (21:00)
== END 2016-07-06 16:05 | disposition home or self-care (01) | DRG 91 ==
PROVIDERS: ADMIT Family Medicine; ATTEND Family Medicine
PROC: F07Z9FZ Gait Training/Functional Ambulation Treatment using Assistive, Adaptive, Supportive or Protective Equipment (ICD-10-PCS; principal; 2016-06-28)
PROC: F07M6ZZ Therapeutic Exercise Treatment of Musculoskeletal System - Whole Body (ICD-10-PCS; 2016-06-28)
PROC: F08Z4ZZ Home Management Treatment (ICD-10-PCS; 2016-06-28)
DX: R27.0 Ataxia, unspecified (principal); G93.40 Encephalopathy, unspecified; J91.0 Malignant pleural effusion; R42 Dizziness and giddiness; F07.81 Postconcussional syndrome; R53.1 Weakness; I25.10 Atherosclerotic heart disease of native coronary artery without angina pectoris; I35.1 Nonrheumatic aortic (valve) insufficiency; I10 Essential (primary) hypertension; D64.9 Anemia, unspecified; K21.9 Gastro-esophageal reflux disease without esophagitis; H40.9 Unspecified glaucoma; E03.9 Hypothyroidism, unspecified; E78.5 Hyperlipidemia, unspecified; K59.00 Constipation, unspecified; M06.9 Rheumatoid arthritis, unspecified; Z85.3 Personal history of malignant neoplasm of breast; Z79.82 Long term (current) use of aspirin; Z95.1 Presence of aortocoronary bypass graft; Z95.5 Presence of coronary angioplasty implant and graft
CPT/HCPCS: 36415; 80048; 85025; 94640

== ENCOUNTER → 2016-07-19 | Outpatient (CLI) | payer MEDICARE, OTHER ==
[~2016-07-19] MED LIST changes: +DEXA1TAB PO; -DEXA4TAB PO; -FURO-154 PO; -METO-277 PO; +METO50TA9 PO; -ONDA4TAB10 PO; -POTA20TA87 PO; -SCOP1PAT TD; -[UNRECOGNIZED DRUG - OTHER] PO
[2016-07-19 10:49] LABS: BASOPHILS % (AUTO) 0.3 % (0-2); EOSINOPHILS # (AUTO) 0.1 T/MM3 (0-0.5); EOSINOPHILS % (AUTO) 1.2 % (0-4); HCT - HEMATOCRIT 41.8 % (36-46); HGB - HEMOGLOBIN 13.6 GM/DL (12-16); IMMATURE GRANULOCYTE # (AUTO) 0.02 T/MM3 (0.00-0.03); IMMATURE GRANULOCYTE % (AUTO) 0.3 % (0.0-0.5); LYMPHOCYTES # (AUTO) 3.1 T/MM3 (1-4.8); LYMPHOCYTES % (AUTO) 41.5 % (23-45); MEAN CORPUSCULAR HGB CONC(MCHC 32.5 GM/DL (31-37); MEAN CORPUSCULAR VOLUME 101.5 UM3 (80-100); MEAN PLATELET VOLUME 11.5 UM3 (9.4-12.4); MONOCYTES # (AUTO) 0.8 T/MM3 (0-0.8); NEUTROPHILS #(AUTO)-ABSOLUTE 3.5 T/MM3 (1.8-7.7); NEUTROPHILS % (AUTO) 45.7 % (33-66); RED BLOOD COUNT 4.12 M/MM3 (4.00-5.20); WBC - WHITE BLOOD COUNT 7.6 T/MM3 (4.5-11.0)
[2016-07-19 10:55] LABS: ALBUMIN 3.6 G/DL (3.5-5.0); ALBUMIN/GLOBULIN RATIO 1.2 RATIO (1.1-2.2); ALKALINE PHOSPHATASE 107 U/L (38-126); ALT (SGPT) 38 U/L (9-52); ANION GAP 9 MEQ/L (5-15); AST (SGOT) 37 U/L (14-36); BUN/CREATININE RATIO 35 RATIO (6-26); CALCIUM 8.9 MG/DL (8.4-10.2); CHLORIDE 101 MEQ/L (98-107); CO2 - CARBON DIOXIDE 29 MEQ/L (22-30); CREATININE 0.8 MG/DL (0.7-1.2); GLOMERULAR FILTRATION RATE 68; GLUCOSE 88 MG/DL (65-110); POTASSIUM 4.8 MEQ/L (3.6-5); SODIUM 139 MEQ/L (134-144); TOTAL PROTEIN 6.6 G/DL (6.3-8.2)
--- NOTE | 2016-07-19 11:23 | DI ---
INDICATION: ITS.REASON: C50.912; J91.0 Malignant pleural effusion; C78.02 LEFT LUNG CA PROCEDURE: CHEST 2-VIEWS UPRIGHT (PA \T\ LAT) Encounter: Subsequent COMPARISON: June 28, 2016 FINDINGS: Slight decrease in the chronic left pleural effusion with basilar compressive atelectasis. Right lung is stable. Emphysema. No pneumothorax. Prior sternotomy. Heart size, pulmonary vascularity and mediastinal contours are unchanged. Impression: Slightly decreased left effusion. .
[2016-07-19 11:39] LABS: CA 27-29 CALCULATED 28.35 U/ML (0-37.7)
== END ==
LOC: IMA 10:16
PROVIDERS: ATTEND Internal Medicine Medical Oncology
DX: C50.912 Malignant neoplasm of unspecified site of left female breast (principal); C78.02 Secondary malignant neoplasm of left lung; J91.0 Malignant pleural effusion
CPT/HCPCS: 36415; 80053; 82378; 85025; 86300

== ENCOUNTER 2016-12-06 11:53 | Observation (INO) ==
--- OUTSIDE RECORDS SUMMARY | 2016-12-06 12:16 | External Medical Summary | Summary of Care ---
:1930 Author Name Marija Chavez M.D. Address [address], [place] [id number] Care Team Providers Name Role Phone Marija Chavez M.D. Unavailable Unavailable Sha Cordoba Primary Care Provider Unavailable Functional Status Functional Status Health Issues Name Dates Details Functional status health issues are not documented Status: Cognitive Status Health Issues Name Dates Details Cognitive status health issues are not documented Status: Problems Name Dates Details Dyspnea (786.09, R06.00) Status: Active Hypertension (401.9, I10) Status: Active High cholesterol (272.0, E78.0) Status: Active Heart disease (429.9, I51.9) Status: Active Pulmonary hypertension (416.8, I27.2) Status: Active Restrictive lung disease (518.89, J98.4) Status: Active Medications Name Dates Details Levothyroxine Sodium 25 MCG Oral Tablet TAKE 1 TABLET DAILY. Refills: 0 Zac Chavez M.D. Started 02-Jun-2015 ActiveAtorvastatin Calcium 10 MG Oral Tablet TAKE 1 TABLET DAILY. Refills: 0 Zac Chavez M.D. Started 02-Jun-2015 ActiveNIFEdipine ER 30 MG Oral Tablet Extended Release 24 Hour TAKE 1 TABLET DAILY. Refills: 0 Zac Chavez M.D. Started 02-Jun-2015 ActiveMetoprolol Succinate ER 50 MG Oral Tablet Extended Release 24 Hour take 1/2 tablet twice daily Refills: 0 Zac Chavez M.D. Started 02-Jun-2015 ActiveLatanoprost 0.005 % Ophthalmic Solution INSTILL 1 DROP IN BOTH EYES AT BEDTIME. Refills: 0 Zac Chavez M.D. Started 02-Jun-2015 ActiveFurosemide 20 MG Oral Tablet TAKE 2 TABLETS TWICE DAILY Refills: 0 Zac Chavez M.D. Started 02-Jun-2015 ActivePotassium Chloride ER 20 MEQ Oral Tablet Extended Release Refills: 0 Zac Chavez M.D. Started 02-Jun-2015 ActiveALPRAZolam 0.25 MG Oral Tablet Refills: 0 Zac Chavez M.D. Started 02-Jun-2015 ActiveTylenol 325 MG Oral Tablet Refills: 0 Zac Chavez M.D. Started 02-Jun-2015 ActiveAspirin 81 MG Oral Tablet Refills: 0 Zac Chavez M.D. Started 02-Jun-2015 ActiveMulti Vitamin Daily Oral Tablet Refills: 0 Zac Chavez M.D. Started 02-Jun-2015 ActiveProbiotic Oral Capsule Refills: 0 Zac Chavez M.D. Started 02-Jun-2015 ActiveProAir HFA 108 (90 Base) MCG/ACT Inhalation Aerosol Solution Refills: 0 Zac Chavez M.D. Started 02-Jun-2015 Active Allergies and Adverse Reactions Name Dates Details Codeine Derivatives Status: Active Morphine Derivatives Status: Active OxyCODONE HCl CAPS Status: Active Past Medical History Name Dates Details History of malignant neoplasm (V10.90, Z85.9) Status: Resolved Procedures Procedure Dates Details History of Heart Surgery ECG/ EKG ([facility]) Pendin01-Jun-2015 Immunization Name Dates Details Immunizations not documented Family History Mother Name Dates Details Family history of myocardial infarction (V17.3, Z82.49) Status: Active Father Name Dates Details Family history of myocardial infarction (V17.3, Z82.49) Status: Active Sister Name Dates Details Family history of cerebrovascular accident (CVA) (V17.1, Z82.3) Status: Active Family history of cardiac disorder (V17.49, Z82.49) Status: Active Brother Name Dates Details Family history of cerebrovascular accident (CVA) (V17.1, Z82.3) Status: Active Social History Smoking StatusUnknown if ever smoked Vital Signs Date Test Result Details 02-Jun-2015 15:29 BP Systolic 109 mm[Hg] Status: BP Diastolic 73 mm[Hg] Status: Heart Rate 83 /min Status: Height 63 in Status: Weight 127 lb Status: O2 SAT 96 % Status: Body Mass Index Calculated 22.5 kg/m2 Status: Body Surface Area Calculated 1.59 m2 Status: Results Date Description Value Details 02-Jun-2015 14:46 CBC w/ Auto Diff 7150 WBC 9.3 K/uL (Better) Range: 4.5-11.0 RBC 4.48 mil/uL Range: 3.60-5.00 (Better) HGB 15.0 g/dL Range: 12.0-16.0 (Better) HCT 45.0 % (Better) Range: 36.0-48.0 MCV 100.4 fL (Above Range: 80.0-99.0 high threshold) MCH 33.5 pg (Above Range: 27.3-32.5 high threshold) MCHC 33.4 % (Better) Range: 32.0-36.0 RDW 12.6 % (Better) Range: 11.6-14.8 PLATELETS 113 K/uL (Below Range: 150-400 low threshold) MPV 12.2 fL (Above Range: 6.0-11.0 high threshold) %NEUTRO 50.7 % (Better) Range: 37.0-80.0 %LYMPHS 37.1 % (Better) Range: 13.0-50.0 %MONO 8.2 % (Better) Range: 0.0-12.0 %EOS 0.8 % (Better) Range: 0.0-7.0 %BASO 0.3 % (Better) Range: 0.0-2.5 %CORINNE 3.0 % (Better) Range: 0.0-5.0 NEUTRO 4.7 K/uL (Better) Range: 2.0-6.9 LYMPHS 3.4 K/uL (Better) Range: 0.6-3.4 MONOS 0.8 K/uL (Better) Range: 0.0-0.9 EOS 0.1 K/uL (Better) Range: 0.0-0.7 BASO 0.0 K/uL (Better) Range: 0.0-0.2 15:17 Comprehensive Metabolic Panel 1212 SODIUM 137 mmol/L Range: 133-144 (Better) POTASSIUM 3.5 mmol/L Range: 3.5-5.1 (Better) CHLORIDE 99 mmol/L Range: 98-110 (Better) CARBON DIOXIDE 27.3 mmol/L Range: 23.0-33.0 (Better) ANION GAP 11 mmol/L Range: 6-16 (Better) BUN 13 mg/dL (Better) Range: 7-18 CREATININE, SERUM 0.76 mg/dL Range: 0.55-1.02 (Better) Comments: Please note new reference ranges effective 2014.- ---- BUN:CREATININE RATIO 17 (Better) EST GFR, >60 ml/min Range: >60 (Better) EST GFR, NON-AFR TUNISIAN >60 ml/min Range: >60 (Better) Comments: EST GFR is reported in ml/min per 1.73 m2 of body surface area. For -Maldivian, please multiple result by 1.2.----- GLUCOSE 102 mg/dL (Above Range: 70-100 high threshold) ALK PHOSPHATASE 117 U/L (Above Range: 46-116 high threshold) TOTAL BILIRUBIN 0.70 mg/dL Range: 0.20-1.00 (Better) AST 26 U/L (Better) Range: 8-35 ALT 26 U/L (Better) Range: 14-59 Comments: Please note new reference ranges. Effective 06/19/2014.----- ALBUMIN 3.4 g/dL (Better) Range: 3.4-5.0 TOTAL PROTEIN 7.7 g/dL (Better) Range: 6.4-8.2 A/G RATIO 0.8 units (Below Range: 1.0-1.8 low threshold) CALCIUM 8.5 mg/dL Range: 8.5-10.1 (Better) 15:31 THYROID STIM. HORMONE 3602 THYROID STIM. HORMONE 2.582 uIU/mL Range: 0.550-4.780 (Better) Comments: No established reference ranges for infants and children <2 years of age----- 17:15 CT CTA CHEST Comments: Exam Date: 06/02/2015 16:09Dictation Date: 17:15 XC CTA CHEST (Better) 17:37 XRay CHEST-PA & LAT Comments: Exam Date: 06/02/2015 14: 42Dictation Date: 06/02/2015 17:37 X CHEST PA & LAT (Better) Plan of Care Planned Observations Name Dates Details Planned Goals not documented Goal Planned Encounters Appointment; Provider: Zac Chavez On 27-Jul-2015 09:30 Appointment; Provider: Schedule Radiology On 02-Jun-2015 16:30 Instructions Instructions not documented Encounters Appointment; Zac Chavez On 02-Jun-2015 Encounter Diagnosis: Problem not documented 15:45
--- OUTSIDE RECORDS SUMMARY | 2016-12-06 12:16 | External Medical Summary | Summary of Care ---
:1930 Author Name Marija Chavez M.D. Address [address], [place] [id number] Care Team Providers Name Role Phone Sha Cordoba Primary Care Provider Unavailable Functional Status Functional Status Health Issues Name Dates Details Functional status health issues are not documented Status: Cognitive Status Health Issues Name Dates Details Cognitive status health issues are not documented Status: Problems Name Dates Details Dyspnea (786.09, R06.00) Status: Active Medications Name Dates Details Medication not documented Allergies and Adverse Reactions Name Dates Details Allergy history not documented Status: Procedures Procedure Dates Details ECG/ EKG ([facility]) Pendin01-Jun-2015 CBC w/ Auto Diff 7150 Ordered:01-Jun-2015 Comprehensive Metabolic Panel 1212 Ordered:01-Jun-2015 THYROID STIM. HORMONE 3602 Ordered:01-Jun-2015 XRay CHEST-PA & LAT Ordered:01-Jun-2015 Immunization Name Dates Details Immunizations not documented Social History Smoking StatusUnknown if ever smoked Vital Signs Date Test Result Details No Known Vitals to report Results Date Description Value Details Results not documented Plan of Care Planned Observations Name Dates Details Planned Goals not documented Goal Planned Encounters Appointment; Provider: Zac Chavez On 02-Jun-2015 15:45 Instructions Instructions not documented Encounters No Encounter data documented On 02-Jun-2015 Encounter Diagnosis: Problem not documented
--- OUTSIDE RECORDS SUMMARY | 2016-12-06 12:16 | External Medical Summary | Summary of Care ---
:1930 Author Name Marija Chavez M.D. Address [address], [place] [id number] Care Team Providers Name Role Phone Marija [...] Active Heart disease (429.9, I51.9) Status: Active Restrictive lung disease (518.89, J98.4) Status: Active Pleural effusion, left (511.9, J90) Status: Active Pulmonary hypertension (416.8, I27.2) Status: Active Medications Name Dates Details Levothyroxine [...] of Heart Surgery ECG/ EKG ([facility]) Pendin01-Jun-2015 XRay CHEST-PA & LAT Ordered:05-Jun-2015 Immunization Name Dates Details Immunizations not documented [...] to report Results Date Description Value Details 12-Jun-2015 10:37 FLUID CULTURE (Aerobic) Comments: [facility] performed at: [place], [facility], [address] [address], ECHO, [address] [place] [address], [employer]: Shaggy Allred D.O., MPHQuest Collection Date/Time: [id number] Results Received Date/Time: [id number] Reported Date/Time: [id number] performed at: [facility], [address] [place] [address], [address] [place] [address], [employer]: Shaggy Allred D.O., MPHQuest Collection Date/Time: [id number] Results Received Date/Time: [id number] Reported Date/Time: [id number] Acce ssion #: [id number] performed at: [facility], [address] [place] [address], [address] [place] [address], [employer]: Shaggy Allred D.O., MPHQuest Collection Date/Time: [id number] est Results Received Date/Time: [id number] Reported Date/Time: CULTURE, AEROBIC SEE NOTE Comments: CULTURE, AEROBIC BACTERIA WITH GRAM STAIN MICRO NUMBER: [id number] TEST STATUS: FINAL SPECIMEN SOURCE: FLUID, THORACENTESIS SPECIMEN QUALITY: ADEQUATE GRAM STAIN: Rare White b BACTERIA WITH GRAM STAIN (Abnormal) lood cells seen No organisms seen RESULT: No Growth[IN]----- 08-Jul-2015 12:39 FUNGUS CULTURE (OTHER Comments: [facility] performed at: [facility], [facility] [place], [address], [employer]: Luciana Macedo Collection Date/Time: 2 SOURCE) [id number] Results Received Date/Time: [id number] Reported Date/Time: [id number] performed at: [facility], [address] [place], [address], [employer]: Luciana Macedo Collection Date/Time: [id number] Results Received Date/Time: [id number] Reported Date/Time: [id number] CULTURE, FUNGUS W/SMEAR SEE NOTE Comments: CULTURE, FUNGUS W/SMEAR NOT HAIR, SKIN, BLOOD MICRO NUMBER: [id number] TEST STATUS: FINAL SPECIMEN SOURCE: FLUID, PLEURAL SPECIMEN QUALITY: ADEQUATE SMEAR: No fungal cahuilla NOT HAIR, SKIN, BLOOD (Better) ents seen. RESULT: No fungal growth at 4 Weeks[SL]----- Plan of Care Planned Observations Name Dates Details Planned Goals not documented Goal Planned Encounters Appointment; Provider: Zac Chavez On 27-Jul-2015 09:30 Appointment; Provider: Schedule Radiology On 08-Jun-2015 13:30 Appointment; Provider: Schedule Radiology On 02-Jun-2015 16:30 Instructions Instructions not documented Encounters Appointment; Zac Chavez On 02-Jun-2015 Encounter Diagnosis: Problem not documented 15:45
--- OUTSIDE RECORDS SUMMARY | 2016-12-06 12:16 | External Medical Summary | Summary of Care ---
:1930 Author Name Marija Chavez M.D. Address [address] [place], [place] [id number] Care Team Providers Name Role Phone Marija [...] of Heart Surgery ECG/ EKG (Specialists) Pendin01-Jun-2015 CT CTA CHEST Ordered:02-Jun-2015 XRay CHEST-PA & LAT Ordered:01-Jun-2015 Immunization Name [...] ml/min Range: >60 (Better) EST GFR, NON-AFR ZAMBIAN >60 ml/min Range: >60 (Better) Comments: EST GFR is reported in ml/min per 1.73 m2 of body surface area. For -Filipino, please multiple result by 1.2.----- GLUCOSE 102 [...] infants and children <2 years of age----- Plan of Care Planned Observations Name Dates Details Planned Goals not documented Goal Planned Encounters Appointment; Provider: Zac Chavez On 27-Jul-2015 09:30 Appointment; Provider: [facility] On 02-Jun-2015 16:30 Instructions Instructions not documented Encounters Appointment; Zac Chavez On 02-Jun-2015 Encounter Diagnosis: Problem not documented 15:45
--- OUTSIDE RECORDS SUMMARY | 2016-12-06 12:16 | External Medical Summary | Summary of Care ---
:1930 Author Name Marija Chavez M.D. Address [address] [place], [place] [id number] Care Team Providers Name Role Phone Marija [...] of Heart Surgery ECG/ EKG (Specialists) Pendin01-Jun-2015 Amylase Body Fluid 1251 Ordered:05-Jun-2015 BODY FLUID CELL COUNT 7629 Ordered:05-Jun-2015 Glucose, Body Fluid 1134 Ordered:05-Jun-2015 LDH, Body Fluid 1131 Ordered:05-Jun-2015 Ph Body Fluid 1128 Ordered:05-Jun-2015 Total Protein, Body Fluid 1152 Ordered:05-Jun-2015 Triglycerides, Body Fluid 1257 Ordered:05-Jun-2015 GLUCOSE 1100 Ordered:05-Jun-2015 LDH 1140 Ordered:05-Jun-2015 TOTAL PROTEIN 1150 Ordered:05-Jun-2015 FLUID CULTURE (Aerobic) Ordered:05-Jun-2015 FUNGUS CULTURE (OTHER SOURCE) [id number] Ordered:05-Jun-2015 XRay CHEST-PA & LAT Ordered:05-Jun-2015 ULTRASOUND THORACENTESIS SONO Ordered:04-Jun-2015 Immunization Name Dates Details Immunizations not documented [...] ml/min Range: >60 (Better) EST GFR, NON-AFR ANGOLAN >60 ml/min Range: >60 (Better) Comments: EST GFR is reported in ml/min per 1.73 m2 of body surface area. For -Tajik, please multiple result by 1.2.----- GLUCOSE 102 [...]
--- OUTSIDE RECORDS SUMMARY | 2016-12-06 12:16 | External Medical Summary | Summary of Care ---
:1930 Author Name Marija Chavez M.D. Address [address] [place], [place] [id number] Care Team Providers Name Role Phone Marija [...] 1152 Ordered:05-Jun-2015 Triglycerides, Body Fluid 1257 Ordered:05-Jun-2015 LDH 1140 Ordered:05-Jun-2015 TOTAL PROTEIN 1150 Ordered:05-Jun-2015 FLUID CULTURE (Aerobic) Ordered:05-Jun-2015 FUNGUS CULTURE (OTHER SOURCE) [id number] Ordered:05-Jun-2015 XRay CHEST-PA & LAT Ordered:05-Jun-2015 ULTRASOUND [...] ml/min Range: >60 (Better) EST GFR, NON-AFR SAMMARINESE >60 ml/min Range: >60 (Better) Comments: EST GFR is reported in ml/min per 1.73 m2 of body surface area. For -Ivorian, please multiple result by 1.2.----- GLUCOSE 102 [...]
--- OUTSIDE RECORDS SUMMARY | 2016-12-06 12:17 | External Medical Summary | Summary of Care ---
:1930 Author Name Marija Chavez M.D. Address [address] [place], [place] [id number] Care Team Providers Name Role Phone Marija [...] Vitamin Daily Oral Tablet Refills: 0 Zac Chaevz M.D. Started 02-Jun-2015 ActiveProbiotic Oral Capsule Refills: [...] of Heart Surgery ECG/ EKG (Specialists) Pendin01-Jun-2015 FUNGUS CULTURE (OTHER SOURCE) [id number] Ordered:05-Jun-2015 XRay CHEST-PA & LAT Ordered:05-Jun-2015 Immunization Name [...] Status: Results Date Description Value Details 02-Jun-2015 CBC w/ Auto Diff 7150 14:46 WBC 9.3 K/uL (Better) Range: 4.5-11.0 RBC 4.48 mil/uL Range: 3.60-5.00 (Better) HGB 15.0 g/dL (Better) Range: 12.0-16.0 HCT 45.0 % (Better) Range: 36.0-48.0 MCV [...] mmol/L Range: 3.5-5.1 (Better) CHLORIDE 99 mmol/L (Better) Range: 98-110 CARBON DIOXIDE 27.3 mmol/L Range: 23.0-33.0 (Better) ANION GAP 11 mmol/L (Better) Range: 6-16 BUN 13 mg/dL (Better) Range: 7-18 CREATININE, SERUM 0.76 mg/dL Range: 0.55-1.02 (Better) Comments: Please note new reference ranges effective 2014.- ---- BUN:CREATININE RATIO 17 (Better) EST GFR, >60 ml/min Range: >60 (Better) EST GFR, NON-AFR HAITIAN >60 ml/min Range: >60 (Better) Comments: EST GFR is reported in ml/min per 1.73 m2 of body surface area. For -Russian, please multiple result by 1.2.----- GLUCOSE 102 [...] Range: 1.0-1.8 low threshold) CALCIUM 8.5 mg/dL (Better) Range: 8.5-10.1 15:31 THYROID STIM. HORMONE 3602 THYROID STIM. HORMONE 2.582 uIU/mL Range: 0.550-4.780 (Better) Comments: No established reference ranges for infants and children <2 years of age----- 17:15 CT CTA CHEST Comments: Exam Date: 06/02/2015 16:09Dictation Date: 17:15 XC CTA CHEST (Better) 17:37 XRay CHEST-PA & LAT Comments: Exam Date: 06/02/2015 14: 42Dictation Date: 06/02/2015 17:37 X CHEST PA & LAT (Better) 08-Jun-2015 CYTOLOGY - MISCELLANEOUS 13:56 4445 CYTOLOGY Specimen referred to [facility]. Report to follow. (Better) 14:08 Ph Body Fluid 1128 pH, BODY FLUID 8 (Better) 14:06 XRay CHEST-(1 VIEW) Comments: Exam Date: 06/08/2015 13:47Dictation Date: 06/08/2015 14:06 X CHEST (1 VIEW) (Better) 14:13 ULTRASOUND THORACENTESIS Comments: Exam Date: 06/08/2015 13: 17Dictation Date: 06/08/2015 14:13 SONO XS THORACENTESIS SONO (Better) 14:17 TOTAL PROTEIN 1150 TOTAL PROTEIN 7.5 g/dL (Better) Range: 6.4-8.2 14:17 GLUCOSE 1100 GLUCOSE 113 mg/dL (Above Range: 70-100 high threshold) 14:17 LDH 1140 LDH 217 U/L (Better) Range: 81-234 14:35 Amylase Body Fluid 1251 AMYLASE, BODY FLUID 59.0 U/L (Better) 14:35 Glucose, Body Fluid 1134 GLUCOSE, BODY FLUID 104 mg/dL (Better) 14:35 LDH, Body Fluid 1131 LDH, BODY FLUID 108 U/L (Better) 14:35 Total Protein, Body Fluid 1152 TOTAL PROTEIN, BODY FLUID 4.0 g/dL (Better) 14:35 Triglycerides, Body Fluid 1257 TRIGLYCERIDES, BODY FLUID <15.00 mg/dL Comments: Interpretation: No known reference ranges for TRIFL----- (Better) 14:47 BODY FLUID CELL COUNT 7629 WBC (BODY FLUID) 250 per uL (Better) BF Neutrophils 3 % (Better) BF Lymphs 93 % (Better) Comments: Moderate number of mesothelial cells observed ----- BF Monos 2 % (Better) BF Eos 2 % (Better) BF Baso 0 % (Better) Source/Site Pleural fluid (Better) 12-Jun-2015 10:37 FLUID CULTURE (Aerobic) Comments: Invisible Sentinel performed at: [facility] [address] [place], [address], Civil Laboratory Technician: Shaggy Allred D.O., MPHQuest Collection Date/Time: [id number] Results Received Date/Time: [id number] Reported Date/Time: [id number] performed at: [facility], [address] [place], [address], Civil Laboratory Technician: Shaggy Allred D.O., MPH[employer] Collection Date/Time: [id number] Results Received Date/Time: [id number] Reported Date/Time: [id number] Acce ssion #: [id number] performed at: [facility], [address] [place], [address], Civil Laboratory Technician: Shaggy Allred D.O., MPH[employer] Collection Date/Time: [id number] est Results Received Date/Time: [id number] Reported Date/Time: CULTURE, AEROBIC BACTERIA SEE NOTE Comments: CULTURE, AEROBIC BACTERIA WITH GRAM STAIN MICRO NUMBER: [id number] TEST STATUS: FINAL SPECIMEN SOURCE: FLUID, THORACENTESIS SPECIMEN QUALITY: ADEQUATE GRAM STAIN : Rare White b WITH GRAM STAIN (Abnormal) lood cells seen No organisms seen RESULT: No Growth[CO]----- Plan of Care Planned Observations Name Dates Details Planned Goals not documented Goal Planned Encounters Appointment; Provider: Zac Chavez On 27-Jul-2015 09:30 Appointment; Provider: Schedule Radiology On 08-Jun-2015 13:30 Appointment; Provider: Schedule [facility]iology On 02-Jun-2015 16:30 Instructions Instructions not documented Encounters Appointment; Zac Chavez On 02-Jun-2015 Encounter Diagnosis: Problem not documented 15:45
--- OUTSIDE RECORDS SUMMARY | 2016-12-06 12:17 | External Medical Summary | Summary of Care ---
:1930 Author Name Angie Winchester Address [address] [place] [address] Care Team Providers Name Role Phone Kathy Ojeda, Marija Frank Unavailable Unavailable Sha Cordoba Primary Care Provider [...] EKG (Specialists) Pendin01-Jun-2015 XRay CHEST-PA & LAT Ordered:01-Jun-2015 Immunization Name [...] K/uL (Better) Range: 4.5-11.0 RBC 4.48 mil/uL (Better) Range: 3.60-5.00 HGB 15.0 g/dL (Better) Range: 12.0-16.0 HCT 45.0 % (Better) Range: 36.0-48.0 MCV 100.4 fL (Above high Range: 80.0-99.0 threshold) MCH 33.5 pg (Above high Range: 27.3-32.5 threshold) MCHC 33.4 % (Better) Range: 32.0-36.0 RDW 12.6 % (Better) Range: 11.6-14.8 PLATELETS 113 K/uL (Below low Range: 150-400 threshold) MPV 12.2 fL (Above high Range: 6.0-11.0 threshold) %NEUTRO 50.7 % (Better) Range: 37.0-80.0 [...] 0.0-0.7 BASO 0.0 K/uL (Better) Range: 0.0-0.2 Plan of Care Planned Observations Name Dates Details Planned Goals not documented Goal Instructions Instructions not documented Encounters Appointment; Zac Chavez On 02-Jun-2015 Encounter Diagnosis: Problem not documented 15:45
--- OUTSIDE RECORDS SUMMARY | 2016-12-06 12:18 | External Medical Summary | Summary of Care ---
:1930 Author Name Marija Chavez M.D. Address [address] [place], [place] [id number] Care Team Providers Name Role Phone Marija [...] of Heart Surgery ECG/ EKG (Specialists) Pendin01-Jun-2015 FLUID CULTURE (Aerobic) Ordered:05-Jun-2015 FUNGUS CULTURE (OTHER SOURCE) [id number] Ordered:05-Jun-2015 XRay CHEST-PA & LAT Ordered:05-Jun-2015 Immunization [...] 80.0-99.0 high threshold) MCH 33.5 pg (Above high Range: [...] Comprehensive Metabolic Panel 1212 SODIUM 137 mmol/L (Better) Range: 133-144 POTASSIUM 3.5 mmol/L (Better) Range: 3.5-5.1 CHLORIDE 99 mmol/L (Better) Range: 98-110 CARBON DIOXIDE 27.3 mmol/L Range: 23.0-33.0 (Better) ANION GAP 11 mmol/L (Better) Range: 6-16 BUN 13 mg/dL (Better) Range: 7-18 CREATININE, SERUM 0.76 mg/dL (Better) Range: 0.55-1.02 Comments: Please note new reference ranges effective 2014.----- BUN:CREATININE RATIO 17 (Better) EST GFR, >60 ml/min Range: >60 (Better) EST GFR, NON-AFR ROMANIAN >60 ml/min Range: >60 (Better) Comments: EST GFR is reported in ml/min per 1.73 m2 of body surface area. For -Jamaican, please multiple result by 1.2.----- GLUCOSE 102 mg/dL (Above Range: 70-100 high threshold) ALK PHOSPHATASE 117 U/L (Above high Range: 46-116 threshold) TOTAL BILIRUBIN 0.70 mg/dL (Better) Range: 0.20-1.00 AST 26 U/L (Better) Range: 8-35 ALT [...] X CHEST PA & LAT (Better) 08-Jun-2015 13:56 CYTOLOGY - MISCELLANEOUS 4445 CYTOLOGY Specimen referred to [facility]. Report to follow. (Better) 14:08 Ph Body [...] 0 % (Better) Source/Site Pleural fluid (Better) Plan of Care Planned Observations Name Dates Details Planned Goals not documented Goal Planned Encounters Appointment; Provider: Zac Chavez On 27-Jul-2015 09:30 Appointment; Provider: Schedule [facility] On 08-Jun-2015 13:30 Appointment; Provider: Schedule [facility] On 02-Jun-2015 16:30 Instructions Instructions not documented Encounters Appointment; Zac Chavez On 02-Jun-2015 Encounter Diagnosis: Problem not documented 15:45
--- OUTSIDE RECORDS SUMMARY | 2016-12-06 12:18 | External Medical Summary | Summary of Care ---
:1930 Author Name Marija Chavez M.D. Address [address], [place] [id number] Care Team Providers Name Role Phone Sha [...] Procedure Dates Details ECG/ EKG (Specialists) Pendin01-Jun-2015 Comprehensive Metabolic Panel 1212 Ordered:01-Jun-2015 THYROID STIM. HORMONE 3602 Ordered:01-Jun-2015 XRay CHEST-PA & LAT Ordered:01-Jun-2015 Immunization Name Dates Details Immunizations not documented Social History Smoking StatusUnknown if ever smoked Vital Signs Date Test Result Details No Known Vitals to report Results Date Description Value Details 02-Jun-2015 14:46 [...]
--- OUTSIDE RECORDS SUMMARY | 2016-12-06 12:18 | External Medical Summary | Summary of Care ---
:1930 Author Name Angie Winchester Address [address] [place] [address] Care Team Providers Name Role Phone Kathy Ojeda, Marija Frank Unavailable Unavailable Sha Cordoba Primary Care Provider Unavailable Unavailable Unavailable Unavailable Functional Status Functional Status Health Issues Name Dates Details Functional status health issues are not documented Status: Cognitive Status Health Issues Name Dates Details Cognitive status health issues are not documented Status: Problems Name Dates Details Dyspnea (786.09, R06.00) Status: Active Hypertension (401.9, I10) Status: Active High cholesterol (272.0, E78.0) Status: Active Heart disease (429.9, I51.9) Status: Active Pleural effusion, left (511.9, J90) Status: Active Pulmonary hypertension (416.8, I27.2) Status: Active Malignant pleural effusion (511.81, J91.0) Status: Active Restrictive lung disease (518.89, J98.4) [...] Refills: 0 Zac Chavez M.D. Started 02-Jun-2015 ActiveIbrance 125 MG Oral Capsule take 1 capsule daily Refills: 0 Zac Chavez M.D. Started 27-Jul-2015 ActiveLetrozole 2.5 MG Oral Tablet TAKE 1 TABLET DAILY. Refills: 0 Zac Chavez M.D. Started 27-Jul-2015 Active Allergies and Adverse Reactions Name Dates [...] smoked Vital Signs Date Test Result Details 27-Jul-2015 09:34 BP Systolic 134 mm[Hg] Status: BP Diastolic 66 mm[Hg] Status: Heart Rate 72 /min Status: Weight 125 lb Status: O2 SAT 94 % Status: Body Mass Index Calculated 22.14 kg/m2 Status: Body Surface Area Calculated 1.58 m2 Status: Results Date Description Value Details Results not documented Plan of Care Planned Observations Name Dates Details Planned Goals not documented Goal Planned Encounters Appointment; Provider: Zac Chavez On 25-Jan-2016 09:45 Appointment; Provider: Schedule Radiology On 08-Jun-2015 13:30 Appointment; Provider: Schedule Radiology On 02-Jun-2015 16:30 Instructions Instructions not documented Encounters Appointment; Zac Chavez On 27-Jul-2015 Encounter Diagnosis: Problem not documented 09:30 Appointment; Zac Chavez On 02-Jun-2015 Encounter Diagnosis: Problem not documented 15:45
--- NOTE | 2016-12-06 12:26 | Emergency Department Report ---
Fall HPI - General Chief Complaint: Fall Stated Complaint: fall,lac l head, l hip pain/numb Time Seen by Provider: 12/06/16 12:08 Source: patient Mode of arrival: EMS Limitations: no limitations - History of Present Illness HPI Narrative: She was outside today watering her mckeon. She is not sure what happened but she ended up falling to her left side. She thinks that her left leg gave out. She is having pain in the left leg and pelvis since then. Her phone was in her pocket so she was able to call for help. She arrives per EMS with C collar in place and on long back board. Was taken off of immobilization upon arrival to ER. Patient denies any neck pain. Is able to clear from C collar with examination. Is alert and oriented. Denies any other pain or injuries. MD complaint: fall Onset (ago): hour(s) Fall from: standing Fall witnessed: no Place fall occurred: home Loss of consciousness: none Prolonged down time: no Symptoms prior to fall: none Context: other (Unsure ) Location of injury: head, pelvis Severity: moderate Associated symptoms (after fall): other (left inner groin pain) - Related Data Home Medications Medication Instructions Recorded Confirmed Aspirin [Aspir 81] 81 mg PO DAILY #0 04/13/08 12/06/16 Latanoprost [Xalatan] 1 drop EACH EYE DAILY #0 01/15/11 12/06/16 Omeprazole 20 mg PO BID #0 06/17/11 12/06/16 Multivitamin [Multivitamins] 1 tab PO DAILY #0 12/14/13 12/06/16 Polyvinyl Alcohol/Povidone/Pf 1 drop BOTH EYES DAILY PRN #0 ml 11/12/15 12/06/16 [Refresh Classic Eye Drops] Albuterol Sulfate [Ventolin Hfa] 1 puff ORAL INH Q4H PRN #0 06/17/16 12/06/16 ALPRAZolam [Xanax] 0.5 mg PO HS PRN 12/06/16 12/06/16 Acetaminophen [Acetaminophen Extra 500 mg PO Q4H PRN 12/06/16 12/06/16 Strength] Atorvastatin [Lipitor] 10 mg PO HS 12/06/16 12/06/16 CALCIUM CARBONATE Chewable [Tums] 500 mg PO Q2H PRN 12/06/16 12/06/16 Fulvestrant [Faslodex] 500 mg IM 1 MONTH 12/06/16 12/06/16 Levothyroxine Sodium 25 mcg PO ACB 12/06/16 12/06/16 Metoprolol Succinate 50 mg PO BID 12/06/16 12/06/16 Nitroglycerin 0.4 mg SL Q5MIN3 PRN 12/06/16 12/06/16 Allergies Allergy/AdvReac Type Severity Reaction Status Date / Time morphine Allergy Intermediate ITCHING,HOT Verified 12/06/16 12:17 propoxyphene Allergy Unknown Verified 12/06/16 12:17 chlorthalidone AdvReac Intermediate Nausea Verified 12/06/16 12:17 codeine AdvReac Intermediate VOMITING Verified 12/06/16 12:17 hydrocodone AdvReac Intermediate VOMITING Verified 12/06/16 12:17 meperidine AdvReac Intermediate VOMITING Verified 12/06/16 12:17 ramipril [From Altace] AdvReac Intermediate Cough Verified 12/06/16 12:17 oxycodone AdvReac Unknown CONFUSION Verified 12/06/16 12:17 Review of Systems Constitutional: Denies: fever, chills, weakness Eyes: Denies: vision change ENT: Denies: ear pain, throat pain, congestion Cardiovascular: Denies: chest pain, palpitations, dyspnea on exertion, edema Respiratory: Denies: cough, dyspnea, wheezes Gastrointestinal: Denies: abdominal pain, nausea, vomiting, diarrhea Musculoskeletal: Reports: other (left groin pain) Integumentary: Reports: other (She does have a laceration to the top of her head and abrasion to the left taoism) Neurological: Denies: headache, weakness, numbness, paresthesias PFSH Patient Stated Medical History Cataracts Yes Other Respiratory Yes: lung damage from breast CA, daily inhaler use Other GI Yes: constipation Other Musculoskeletal Yes: arthritis Shingles Yes Clinic Medical History Breast cancer (Chronic Medical) L breast CAD (coronary artery disease) (Chronic Medical) CHF (congestive heart failure) (Chronic Medical) HTN (hypertension) (Chronic Medical) Hyperlipidemia (Chronic Medical) MVP (mitral valve prolapse) (Chronic Medical) Peripheral neuropathy (Chronic Medical) Restrictive lung disease (Chronic Medical) FVC=68 @ pred (04/2015) Surgical History: L mastectomy 1991, breast CA, all nodes clear. R mastectomy 1994, done for prophylaxis. D&C x2. heart cath 07/2004. R pelvic fracture 2004. IOLI, left 2000, right 2004. Left total shoulder replacement 2004. 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 Heart cath with stent placement 04/2008. cholecystectomy 2011. Heart cath 04/2015 ([facility]). Colonoscopy 10/2011 ([facility]), Family History: Family History Father , at age 76 Heart disease Mother , at age 68 Breast cancer Heart disease Sister , at age 58 Heart disease Sister , at age 69 Heart disease Brother Oral-mouth cancer smoker - Social History Smoking status: Never smoker Physical Exam - Limitations Limitations: no limitations - General General appearance: alert, in no apparent distress - Normal Exams: ENMT:: No facial trauma, nasal exudates, pharyngeal erythema, or exudates are noted Neck:: Full range of motion, without adenopathy, JVD, bruits or thyromegaly Chest/Respirations:: Clear all epps, with good airflow, and symmetry bilaterally Cardiovascular:: Regular rate and rhythm, without murmur or gallop, Pulses 2+ all extremities, capillary refill, <2 seconds all extremities Abdomen:: Bowel sounds positive, soft, non-tender, non-distended, no hepatosplenomegaly, masses or bruits noted Lymphatic:: No lymphadenopathy, or lymphedema noted Neurological:: Patient is alert, and oriented Psychiatric:: Patient exhibits, appropriate attention, emotion and affect - Eye Eye exam: Present: other (Her left pupil is smaller than her right but she states that this is normal for her, this is not new today) - Neck Neck exam: Present: normal inspection, full ROM, trachea midline. Absent: tenderness, lymphadenopathy - Expanded Lower Extremity Exam Hip/Pelvis exam: Present: normal inspection. Absent: full ROM (due to pain in the left medial groin region), tenderness, swelling, abrasion, ecchymosis, deformity Upper leg exam: Present: normal inspection. Absent: full ROM, tenderness, swelling, abrasion, ecchymosis, deformity Knee exam: Present: normal inspection, full ROM. Absent: tenderness, swelling, abrasion, ecchymosis, deformity Lower leg exam: Present: normal inspection, full ROM. Absent: tenderness, swelling, abrasion, ecchymosis, deformity Ankle exam: Present: normal inspection, full ROM. Absent: tenderness, swelling , abrasion, ecchymosis, deformity Foot/toe exam: Present: normal inspection, full ROM. Absent: tenderness, swelling, abrasion, ecchymosis, deformity Neurovascular/Tendon exam: Present: normal capillary refill. Absent: pulse deficit - Skin Skin exam: Present: other (she has some ecchymosis and abrasion on the left taoism/eyebrow region. There is a laceration on the right upper scalp as well.) Course Vital Signs Temperature 97.8 F 12/06/16 11:58 Pulse Rate 73 12/06/16 11:58 Respiratory Rate 16 12/06/16 11:58 Blood Pressure 204/81 H 12/06/16 11:58 Pulse Oximetry 94 12/06/16 11:58 Temperature 97.8 F 12/06/16 11:58 Pulse Rate 78 12/06/16 13:35 Respiratory Rate 16 12/06/16 13:35 Blood Pressure 168/108 H 12/06/16 13:35 Pulse Oximetry 95 12/06/16 13:35 Fall - MDM Narrative Medical decision making narrative: She does have a left pubic rami fracture that is non displaced and comminuted. Did discuss this with Dr Nur. She does live alone. Is not having much pain here in ER but we have not gotten her up or attempted ambulation at all. She does states that she has increased pain with any movement of the left leg. He will consult if we admit to hospitalist. Spoke with Dr Rodriguez who will accept for OBS admission at this time. - Differential Diagnosis Likely: syncope - Lab Data Attestation: I reviewed the patient's lab results. Result diagrams: 12/06/16 12:16 12/06/16 12:16 Lab Results 12/06/16 12/06/16 12/06/16 Range/Units 12:16 12:16 12:16 WBC 9.4 (4.5-11.0) T/MM3 RBC 3.84 L (4.00-5.20) M/MM3 Hgb 12.4 (12-16) GM/DL Hct 38.0 (36-46) % MCV 99.0 (80-100) UM3 MCH 32.3 (26-34) UUG MCHC 32.6 (31-37) GM/DL RDW Std Deviation 48.8 (36.9-50.2) FL Plt Count 115 L (130-400) T/MM3 MPV 13.6 H (9.4-12.4) UM3 Immature Gran % (Auto) 0.6 H (0.0-0.5) % Neut % (Auto) 39.3 (33-66) % Lymph % (Auto) 47.1 H (23-45) % [place] % (Auto) 11.3 H (0-9.0) % Eos % (Auto) 1.4 (0-4) % Baso % (Auto) 0.3 (0-2) % Neut # 3.7 (1.8-7.7) T/MM3 Lymph # 4.4 (1-4.8) T/MM3 [place] # 1.1 H (0-0.8) T/MM3 Eos # 0.1 (0-0.5) T/MM3 Baso # 0.0 (0-0.2) T/MM3 Abs Immat Gran (auto) 0.06 H (0.00-0.03) T/MM3 Turbidity < 20 (0-20) Sodium 138 (134-144) MEQ/L Potassium 4.0 (3.6-5) MEQ/L Chloride 100 (98-107) MEQ/L Carbon Dioxide 27 (22-30) MEQ/L Anion Gap 11 (5-15) MEQ/L BUN 17.0 (7-17) MG/DL Creatinine 0.7 (0.7-1.2) MG/DL GFR Calculation 79 BUN/Creatinine Ratio 24 (6-26) RATIO Glucose 101 (65-110) MG/DL Calculated Osmolality 268 (261-280) MOSM/KG Calcium 9.3 (8.4-10.2) MG/DL Total Bilirubin 1.20 (0.20-1.30) MG/DL Icterus Index < 2 (0-7) AST 36 (14-36) U/L ALT 39 (9-52) U/L Alkaline Phosphatase 120 (38-126) U/L Troponin I < 0.012 (0-0.12) ng/ml Total Protein 7.1 (6.3-8.2) G/DL Albumin 4.2 (3.5-5.0) G/DL Globulin 2.9 (2.4-3.6) G/DL Albumin/Globulin Ratio 1.4 (1.1-2.2) RATIO Specimen Hemolysis < 15 (0-25) Ur Collection Type Urine, clean catch Urine Color Yellow (YELLOW) Urine Clarity Clear Urine pH 7.0 (5.0-8.0) Ur Specific [place] 1.010 L (1.015-1.025) Urine Protein Negative (NEGATIVE) Urine Glucose (UA) Negative (NEGATIVE) Urine Ketones Negative (NEGATIVE) Urine Occult Blood Negative (NEGATIVE) Urine Nitrate Negative (NEGATIVE) Urine Bilirubin Negative (NEGATIVE) Urine Urobilinogen 0.2 (NORMAL) EU/DL Ur Leukocyte Esterase Negative (NEGATIVE) Urinalysis Comment Microscopic not ind. - Radiology Data Attestation: I reviewed the patient's radiology results. Date of Exam: 12/06/16 Ordering Provider: Autumn Roblero APRN Type of Exam(s): CT head/brain wo con Reason for Exam(s): fall, head injury Indication: fall, head injury PROCEDURE: CT head/brain wo con: Encounter: Initial Comparison: Head CT dated June 23, 2016 Technique: Axial CT images through the head were performed without contrast. Iterative Reconstruction dose reducing technique was utilized. FINDINGS: The ventricles are stable. There is no evidence of acute intracranial hemorrhage, midline displacement, or mass effect. There are numerous areas of low attenuation in the white matter which most likely represent changes of chronic microvascular ischemia. The CT attenuation of the brain parenchyma is otherwise normal within the cerebellum, brain stem, and cerebral hemispheres. The tympanic cavities and mastoid air cells are free of appreciable disease. There are no definite fractures of the skull base, calvarium, or visualized portion of the midface. Right frontal scalp hematoma. IMPRESSION: No CT evidence of acute traumatic intracranial injury. . Date of Exam: 12/06/16 Ordering Provider: Jonathan Ray DO Type of Exam(s): XR pelvis w/ 2 view LT hip Reason for Exam(s): FALL Indication: FALL PROCEDURE: XR pelvis w/ 2 view LT hip: Encounter: Initial Comparison: None Findings: Mildly displaced fractures of the left superior and inferior pubic rami. No additional acute fracture or dislocation seen. Degenerative change in the visualized lower lumbar spine. Bony demineralization. Impression: Closed posttraumatic left pubic rami fractures. . Disposition Clinical Impression: Fracture of pubic ramus Qualifiers: Encounter type: initial encounter Fracture type: closed Laterality: left Qualified Code(s): S32.592A - Other specified fracture of left pubis, initial encounter for closed fracture Disposition: [address] [facility] [place] Stable Prescriptions: No Action Omeprazole 20 mg PO BID #0 Multivitamin [Multivitamins] 1 tab PO DAILY #0 Polyvinyl Alcohol/Povidone/Pf [Refresh Classic Eye Drops] 1 drop BOTH EYES DAILY PRN #0 ml PRN Reason: Prn Orders Albuterol Sulfate [Ventolin Hfa] 1 puff ORAL INH Q4H PRN #0 PRN Reason: SHORTNESS OF AIR/WHEEZING Acetaminophen [Acetaminophen Extra Strength] 500 mg PO Q4H PRN PRN Reason: Pain Fulvestrant [Faslodex] 500 mg IM 1 MONTH Nitroglycerin 0.4 mg SL Q5MIN3 PRN PRN Reason: Chest Pain Atorvastatin [Lipitor] 10 mg PO HS Metoprolol Succinate 50 mg PO BID Levothyroxine Sodium 25 mcg PO ACB CALCIUM CARBONATE Chewable [Tums] 500 mg PO Q2H PRN PRN Reason: Prn Orders Aspirin [Aspir 81] 81 mg PO DAILY #0 Latanoprost [Xalatan] 1 drop EACH EYE DAILY #0 ALPRAZolam [Xanax] 0.5 mg PO HS PRN PRN Reason: Insomnia Time of Disposition: 13:28 - Seen By: midlevel
--- NOTE | 2016-12-06 12:44 | CT Scan Report ---
Indication: fall, head injury PROCEDURE: CT head/brain wo con: Encounter: Initial Comparison: Head CT dated June 23, 2016 Technique: Axial CT images through the head were performed without contrast. Iterative Reconstruction dose reducing technique was utilized. FINDINGS: The ventricles are stable. There is no evidence of acute intracranial hemorrhage, midline displacement, or mass effect. There are numerous areas of low attenuation in the white matter which most likely represent changes of chronic microvascular ischemia. The CT attenuation of the brain parenchyma is otherwise normal within the cerebellum, brain stem, and cerebral hemispheres. The tympanic cavities and mastoid air cells are free of appreciable disease. There are no definite fractures of the skull base, calvarium, or visualized portion of the midface. Right frontal scalp hematoma. IMPRESSION: No CT evidence of acute traumatic intracranial injury. .
--- NOTE | 2016-12-06 12:59 | XRay Report ---
Indication: FALL PROCEDURE: XR pelvis w/ 2 view LT hip: Encounter: Initial Comparison: None Findings: Mildly displaced fractures of the left superior and inferior pubic rami. No additional acute fracture or dislocation seen. Degenerative change in the visualized lower lumbar spine. Bony demineralization. Impression: Closed posttraumatic left pubic rami fractures. .
--- NOTE | 2016-12-06 14:33 | History & Physical Report ---
<Palak Choudhary - Last Filed: 12/06/16 15:49> History of Present Illness Date: 12/06/16 Chief complaint: pelvic fracture HPI: Patient is an 86 year old female who lives independently at [facility]. She reports she was out watering her mckeon when she fell. She does not feel that she passed out or lost consciousness. She states she remembers falling. She truly does not know why or how she fell. She was brought into the ED by EMS. CT head was negative and pelvis/left hip x-ray revealed mildly displaced fractures of the left superior and inferior pubic rami. Her pain is in the left groin area. She rates her pain now at a 3 out of 10. States when she moves her pain is unbearable. She had some minor skin tears/abrasions. States she has a little bit of pain in her left elbow. She has had diarrhea for over the past 5 weeks. She was seen for her yearly wellness exam early November and stool cultures were taken at that time. Initially she had some blood in her stool. She is not running fever. She states she continues to have at least 3 loose stools a day (soft, not runny). She denies feeling lightheaded or dizzy. She tells me that she was treated with an antibiotic through her PCP, and maybe her symptoms did improve some, but she still is definitely have more stools than is usual for her. In review of her office notes, she tested positive for Campylobacter species. Patient does not know what antibiotic she was treated with. Review of Systems Comprehensive ROS: completed and no additional positive findings except those as stated - Respiratory Respiratory: Present: cough (chronic), dyspnea (chronic) - Gastrointestinal Gastrointestinal: Present: diarrhea - Musculoskeletal Musculoskeletal: Present: as per HPI - Integumentary/Breasts Integumentary: Present: wounds - Neurological Neurological Comments: Neuropathy in her feet [facility] Clinic Medical History Breast cancer (Chronic Medical) L breast CAD (coronary artery disease) (Chronic Medical) CHF (congestive heart failure) (Chronic Medical) HTN (hypertension) (Chronic Medical) Hyperlipidemia (Chronic Medical) MVP (mitral valve prolapse) (Chronic Medical) Peripheral neuropathy (Chronic Medical) Restrictive lung disease (Chronic Medical) FVC=68 @ pred (04/2015) Hypothyroidism GERD Glaucoma Surgical History: L mastectomy 1991, breast CA, all nodes clear. R mastectomy 1994, done for prophylaxis. D&C x2. heart cath 07/2004. R pelvic fracture 2004. IOLI, left 2000, right 2004. Left total shoulder replacement 2004. 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 Heart cath with stent placement 04/2008. cholecystectomy 2011. Heart cath 04/2015 (Alvin). 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 Fulton Medications Home Medications Medication Instructions Recorded Confirmed Type Aspirin [Aspir 81] 81 mg PO DAILY #0 04/13/08 12/06/16 History Latanoprost [Xalatan] 1 drop EACH EYE DAILY #0 01/15/11 12/06/16 History Omeprazole 20 mg PO BID #0 06/17/11 12/06/16 History Multivitamin [Multivitamins] 1 tab PO DAILY #0 12/14/13 12/06/16 History Polyvinyl Alcohol/Povidone/Pf 1 drop BOTH EYES DAILY PRN #0 ml 11/12/15 History [Refresh Classic Eye Drops] Albuterol Sulfate [Ventolin Hfa] 1 puff ORAL INH Q4H PRN #0 06/17/16 12/06/16 History ALPRAZolam [Xanax] 0.5 mg PO HS PRN 12/06/16 12/06/16 History Acetaminophen [Acetaminophen Extra 500 mg PO Q4H PRN 12/06/16 12/06/16 History Strength] Atorvastatin [Lipitor] 10 mg PO HS 12/06/16 12/06/16 History CALCIUM CARBONATE Chewable [Tums] 500 mg PO Q2H PRN 12/06/16 12/06/16 History Fulvestrant [Faslodex] 500 mg IM 1 MONTH 12/06/16 12/06/16 History Furosemide [Lasix] 40 mg PO DAILY 12/06/16 12/06/16 History Levothyroxine Sodium 25 mcg PO ACB 12/06/16 12/06/16 History Metoprolol Succinate 75 mg PO BID 12/06/16 12/06/16 History Nitroglycerin 0.4 mg SL Q5MIN3 PRN 12/06/16 12/06/16 History Potassium Chloride [Micro-K] 20 meq PO WB 12/06/16 12/06/16 History Allergies Allergy/AdvReac Type Severity Reaction Status Date / Time morphine Allergy Intermediate ITCHING,HOT Verified 12/06/16 12:17 propoxyphene Allergy Unknown Verified 12/06/16 12:17 chlorthalidone AdvReac Intermediate Nausea Verified 12/06/16 12:17 codeine AdvReac Intermediate VOMITING Verified 12/06/16 12:17 hydrocodone AdvReac Intermediate VOMITING Verified 12/06/16 12:17 meperidine AdvReac Intermediate VOMITING Verified 12/06/16 12:17 ramipril [From Altace] AdvReac Intermediate Cough Verified 12/06/16 12:17 oxycodone AdvReac Unknown CONFUSION Verified 12/06/16 12:17 Exam Vital Signs: Temperature 97.8 F 12/06/16 11:58 Pulse Rate 78 12/06/16 13:35 Respiratory Rate 16 12/06/16 13:35 Blood Pressure 168/108 H 12/06/16 13:35 Pulse Oximetry 95 12/06/16 13:35 - Constitutional Present: no acute distress, well nourished, well developed, thin - Routine HEENT Exam Head: Present: normocephalic, atraumatic Eye: Present: EOMI, PERRL (right pupil is dilated compared to the left pupil. ( Patient states this is chronic for her.) Both pupils are reactive to light) ENT: Present: mucous membranes moist, dentition normal Comments: Bony monalisa to hard palate - Routine Neck Exam Present: supple, full ROM. Absent: carotid bruit - Routine Chest/Breast/Axilla Exam Breast: Present: right mastectomy, left mastectomy - Routine Respiratory Exam Present: CTA bilaterally, crackles (left lower lobe). Absent: wheezes - Routine Cardiovascular Exam Present: RRR, S1, S2 (Gr 2-3/6), murmur - Routine Abdominal Exam Present: soft, normoactive bowel sounds, non distended. Absent: tenderness - Routine Extremities Exam Present: edema, normal capillary refill - Routine Skin Exam Present: dry, warm Comments: Blood is noted on the right parietal area on the scalp, no obvious site of bleeding was found. Assessment presumed to the left forearm and elbow and a few small skin tears the left elbow area. - Routine Neurological Exam Present: alert, oriented X3 - Routine Psychiatric Exam Present: normal affect, normal thought process, cooperative Results - Labs CBC & Chem 7: 12/06/16 12:16 12/06/16 12:16 Labs: Laboratory Tests 12/06/16 12:16 Troponin I < 0.012 Urinalysis-negative Stool culture performed/05/27-positive for Campylobacter species-moderate amount . Negative for Shigella toxin 1 and 2, C. difficile not performed due to submission of formed stool. - Imaging and Cardiology CT scan - head Additional comments: IMPRESSION: No CT evidence of acute traumatic intracranial injury. pelvic/left hip x-ray Additional comments: Findings: Mildly displaced fractures of the left superior and inferior pubic rami. No additional acute fracture or dislocation seen. Degenerative change in the visualized lower lumbar spine. Bony demineralization. Impression: Closed posttraumatic left pubic rami fractures. Assessment and Plan (1) Fracture of pubic ramus Current visit: Yes Status: Acute DVT Prophylaxis: SCD's GI Prophylaxis: other (omeprazole (takes at home)) Resuscitation Status: Full Code Assessment and Plan: Assessment: Mildly displaced fractures of the left superior and inferior pubic rami Persistent diarrhea-recent diagnosis of Campylobacter treated with antibiotics through PCP Hypertension Coronary artery disease Hyperlipidemia Mitral valve prolapse Congestive heart failure Breast cancer, left breast -1994 Breast cancer recurrence - 2015 Peripheral neuropathy Restrictive lung disease-as a result of recurrent breast cancer Hypothyroidism GERD Glaucoma Plan: Admit to observation under the hospitalist service (Dr. Rodriguez, attending) for pain control and monitoring of other chronic problems. PT/OT consults to evaluate functional abilities IRU evaluation to determine if she qualifies for rehabilitation following observation Given her multiple allergies/adverse reactions to pain medicines, will start with the scheduled Tylenol for pain. As [place] is listed with side effect of vomiting, will order [place] PRN for pain not controlled with Tylenol and give Zofran along with it. Consideration was given to Dilaudid, however since it is a derivative of morphine and she has allergy of itching to morphine, will try the Tylenol and [place] first. Check GI panel given the ongoing diarrhea despite treatment for Campylobacter. Continue home medications for chronic problems SCDs for DVT prophylaxis. Hold Lovenox at this point given her recent fall and potential for occult internal bleeding On discharge, patient's care will return to her PCP, Dr. Cordoba Case and plan of care discussed with Dr. Rodriguez. Information reviewed from PCPs office. Hospital Course Summary Disclaimer: The visit summary below is not to be considered part of the above Progress Note. <Sigrid Rodriguez - Last Filed: 12/06/16 17:15> History of Present Illness Date: 12/06/16 [facility] Patient Stated Medical History Family History: Family History Father , at age 76 Heart disease Mother , at age 68 Breast cancer Heart disease Sister , at age 58 Heart disease Sister , at age 69 Heart disease Brother Oral-mouth cancer smoker Exam Vital Signs: Temperature 96.2 F L 12/06/16 14:24 Pulse Rate 63 12/06/16 14:24 Respiratory Rate 16 12/06/16 14:24 Blood Pressure 181/73 H 12/06/16 14:24 Pulse Oximetry 94 12/06/16 14:24 Height/Weight/BMI: Height 1.6 m Weight 53.5 kg Body Mass Index 20.9 Results - Labs CBC & Chem 7: 12/06/16 12:16 12/06/16 12:16 Assessment and Plan (1) Fracture of pubic ramus Current visit: Yes Status: Acute Assessment and Plan: I have independently evaluated and examined this patient. I reviewed the chart, the patient's history, and the [employer]/PA's documented findings as above. We discussed and formulated the assessment and plan as above with additions as below: Mrs. Gomez is known from prior hospitalizations. She reports falling while working in her garden; she believes she simply took a bad step resulting in loss of balance area she fell to the left, struck her face on some rocks in the garden and thinks she hit the guevara bushes with the right side of her head. She landed on her left side and had immediate pain in her left groin area with inability to move the left leg. She denies preceding lightheadedness or chest pain. She does not think the diarrhea she's had recently has resulting in volume depletion although she's not been able to regain weight she lost over the past month. She denies loss of consciousness or pain anywhere other than the left groin. Left superior/inferior pubic rami fractures were identified in the emergency room; a bleeding site in the right scalp was identified but there is no indication of laceration or skin tear. Patient speculates that guevara hernández thorn's may of caused puncture wounds triggering bleeding. The patient is alert and fully oriented There is matting of blood along the right frontoparietal scalp but no soft tissue swelling is present and I cannot identify laceration. Small area of ecchymosis and very superficial abrasion above the left eyebrow and minor abrasions/bruising left forearm. No tenderness on palpation over the anterior/lateral ribs. Respirations nonlabored. Regular cardiac rhythm, S1 and S2. No peripheral edema, distal sensation, lower extremity pulses intact; able to dorsiflex/plantarflex at both ankles. Pelvic films reviewed by myself-fractures as identified above without hip fracture. CT of the head reviewed by myself-no acute intracranial pathology, small right frontal scalp hematoma present. EKG also reviewed by myself-sinus rhythm, LVH with secondary changes. Laboratory data reviewed and all unremarkable. PT/OT consulted, IRU evaluation planned. Obtain orthostatic blood pressures in the morning in the event further fluid replacement is needed and that orthostasis contributed to fall. Of note Campylobacter previously treated with azithromycin 6 days Chronic diastolic CHF-ejection fraction 65% at heart catheter in April 2015. Hospital Course Summary Disclaimer: The visit summary below is not to be considered part of the above Progress Note.
[2016-12-06 14:45] VITALS: BMI 20.9
[2016-12-06] MEDS ORDERED: ACETAMINOPHEN 500 MG TABLET PO ONE (15:05)
[2016-12-06] MEDS ORDERED: ACETAMINOPHEN 325 MG TABLET PO PRN (15:05)
[2016-12-06] MEDS ORDERED: HYDROCODONE/APAP 5mg/325mg TABLET PO PRN (15:15)
[2016-12-06] MEDS ORDERED: ONDANSETRON 4 MG/2 ML INJECTION IVP PRN (15:15)
[2016-12-06] MEDS ORDERED: CALCIUM CARBONATE Chewable 500mg TABLET PO PRN (15:52)
[2016-12-06] MEDS ORDERED: ALPRAZolam 0.25 MG TABLET PO PRN (15:52)
[2016-12-06] MEDS ORDERED: NITROGLYCERIN 0.4 MG SUBLINGUAL TABLET SL PRN (15:52)
[2016-12-06] MEDS ORDERED: REFRESH CLASSIC Eye Drops 0.4ml EACH EYE PRN (15:52)
[2016-12-06] MEDS ORDERED: ALBUTEROL 2.5mg/3ml (0.083%) NEB AEROSOL PRN (16:06)
[2016-12-06] MEDS: OMEPRAZOLE 20 MG CAPSULE PO SCH (20:51)
[2016-12-06] MEDS: ACETAMINOPHEN 325 MG TABLET PO SCH (20:52)
[2016-12-06] MEDS: SALINE FLUSH 10ml SYRINGE IV PRN (20:57)
[2016-12-06] MEDS ORDERED: ATORVASTATIN 10 MG TABLET PO SCH (21:00)
[2016-12-06] MEDS ORDERED: FALL RISK - PHARMACY CONSULT XX ONE (21:53)
[2016-12-07] MEDS: SALINE FLUSH 10ml SYRINGE IV PRN (05:57)
[2016-12-07] MEDS ORDERED: LEVOTHYROXINE 25 MCG TABLET PO SCH (06:30)
[2016-12-07 07:11] VITALS: RESP 16
[2016-12-07] MEDS: OMEPRAZOLE 20 MG CAPSULE PO SCH (08:31)
[2016-12-07] MEDS: ACETAMINOPHEN 325 MG TABLET PO SCH ×2 (08:32→12:11)
[2016-12-07] MEDS ORDERED: FUROSEMIDE 20 MG TABLET PO SCH (09:00)
[2016-12-07] MEDS ORDERED: ASPIRIN *EC* 81 MG TABLET PO SCH (09:00)
[2016-12-07] MEDS ORDERED: LATANOPROST 0.005% EYE DROPS 2.5ml EACH EYE SCH (09:00)
[2016-12-07] MEDS ORDERED: MULTI-VITAMIN + MINERAL TABLET PO SCH (09:00)
[2016-12-07] MEDS ORDERED: SENNA + DOCUSATE TABLET PO SCH (11:17)
[2016-12-07] MEDS ORDERED: TRAMADOL 50 MG TABLET PO PRN (11:24)
[2016-12-07] MEDS ORDERED: POLYETHYL GLYCOL 3350 17gm PACKET PO SCH (11:30)
--- NOTE | 2016-12-07 11:30 | Discharge Instructions ---
Discharge Plan - Med Rec/Dispo Referrals/Follow Up: Sha Cordoba MD [Family Provider] - (Follow up with Dr Cordoba in 1 week.) Prescriptions: New Senna + Docusate [Senna Plus Tablet] 2 tab PO BID tablet Tramadol [Ultram] 50 mg PO Q6HR PRN #30 tab PRN Reason: pain Acetaminophen [Tylenol] 650 mg PO QID tablet Polyethylene Glycol 3350 [Miralax] 17 gm PO DAILY #30 powd.pack Continue Omeprazole 20 mg PO BID #0 Multivitamin [Multivitamins] 1 tab PO DAILY #0 Polyvinyl Alcohol/Povidone/Pf [Refresh Classic Eye Drops] 1 drop BOTH EYES DAILY PRN #0 ml PRN Reason: Prn Orders Albuterol Sulfate [Ventolin Hfa] 1 puff ORAL INH Q4H PRN #0 PRN Reason: SHORTNESS OF AIR/WHEEZING Acetaminophen [Acetaminophen Extra Strength] 500 mg PO Q4H PRN PRN Reason: Pain Fulvestrant [Faslodex] 500 mg IM 1 MONTH Nitroglycerin 0.4 mg SL Q5MIN3 PRN PRN Reason: Chest Pain Atorvastatin [Lipitor] 10 mg PO HS Metoprolol Succinate 75 mg PO BID Levothyroxine Sodium 25 mcg PO ACB CALCIUM CARBONATE Chewable [Tums] 500 mg PO Q2H PRN PRN Reason: Prn Orders Potassium Chloride [Micro-K] 20 meq PO WB ALPRAZolam [Xanax] 0.5 mg PO HS PRN #30 tab PRN Reason: Insomnia Aspirin [Aspir 81] 81 mg PO DAILY #0 Latanoprost [Xalatan] 1 drop EACH EYE DAILY #0 Furosemide [Lasix] 40 mg PO DAILY Discharge Instructions/Outpatient Orders: Final Provider Discharge Instructions Location: Determined By Patient - Disposition 04 To [facility] Home/Facility
--- NOTE | 2016-12-07 11:39 | Extended Care Facility Orders ---
<Analia Lemon V - Last Filed: 12/07/16 11:38> Admission Orders Admit to:: [facility] Allergies/Adverse Reactions: Allergies morphine Allergy (Intermediate, Verified 12/06/16 12:17) ITCHING,HOT propoxyphene Allergy (Unknown, Verified 12/06/16 12:17) chlorthalidone Adverse Reaction (Intermediate, Verified 12/06/16 12:17) Nausea codeine Adverse Reaction (Intermediate, Verified 12/06/16 12:17) VOMITING hydrocodone Adverse Reaction (Intermediate, Verified 12/06/16 12:17) VOMITING meperidine Adverse Reaction (Intermediate, Verified 12/06/16 12:17) VOMITING ramipril [From Altace] Adverse Reaction (Intermediate, Verified 12/06/16 12:17) Cough oxycodone Adverse Reaction (Unknown, Verified 12/06/16 12:17) CONFUSION Admitting Diagnosis: Pelvic Fracture Admitting Physician: Sigrid Rodriguez MD Attending Physician: Sigrid Rodriguez MD Code Status: Full Code Anticiapted Length of Stay: 30 days or less Rehab Potential: good Rehab Prognosis: good Diet: 12/06/16 Dinner Regular Diet [DIET] Diet Modifications: May use Facility Protocol or Standing Orders: Yes May have flu vaccine: Yes Evaluations/Treatment: PT, OT - Additional Information In Event of Arrest: Start CPR,call 911,send patient to the ER Referrals: Sha Cordoba MD [Family Provider] - (Follow up with Dr Cordoba in 1 week.) <Gege Alba - Last Filed: 12/07/16 12:53> Admission Orders Admitting Diagnosis: Pelvic Fracture Admitting Physician: Sigrid Rodriguez MD Attending Physician: Sigrid Rodriguez MD Code Status: Full Code Diet: 12/06/16 Dinner Regular Diet [DIET] Diet Modifications: Alf Certification: I certify that SNF services are required to be given on an Inpatient basis because of the patients need for detention care on a continuing basis for the condition(s) for which he/she received inpatient hospital services prior to his/her transfer to the SNF. SNF inpatient care is necessary for the following reasons
--- NOTE | 2016-12-07 11:43 | Discharge Summary ---
<Analia Lemon V - Last Filed: 12/07/16 11:39> Discharge Information Date of admission: 12/06/16 14:16 Anticipated date of discharge: 12/07/16 Attending Physician: Sigrid Rodriguez MD Primary care physician: Sha Cordoba MD Consults: 12/06/16 Inpatient Rehab Screening [CONS] Routine Screen requested by:: Physician Comment Text:: Jennifer 12/06/16 15:32 Inpatient Rehab Screening [CONS] Routine Screen requested by:: Physician Comment Text:: - Discharge Diagnosis Discharge Diagnosis: Pelvic fracture - Procedures Procedures: None - Laboratory Labs: 12/07/16 03:58 12/07/16 03:58 - Microbiology None - Radiology Radiology: 12/06/16-pelvic x-ray-close posttraumatic left pubic rami fracture 12/06/16-CT scan of the head revealing no intracranial abnormalities - Pathology None History of Present Illness HPI: Patient is an 86 year old female who lives independently at [facility]. She reports she was out watering her mckeon when she fell. She does not feel that she passed out or lost consciousness. She states she remembers falling. She truly does not know why or how she fell. She was brought into the ED by EMS. CT head was negative and pelvis/left hip x-ray revealed mildly displaced fractures of the left superior and inferior pubic rami. Her pain is in the left groin area. She rates her pain now at a 3 out of 10. States when she moves her pain is unbearable. She had some minor skin tears/abrasions. States she has a little bit of pain in her left elbow. She has had diarrhea for over the past 5 weeks. She was seen for her yearly wellness exam early November and stool cultures were taken at that time. Initially she had some blood in her stool. She is not running fever. She states she continues to have at least 3 loose stools a day (soft, not runny). She denies feeling lightheaded or dizzy. She tells me that she was treated with an antibiotic through her PCP, and maybe her symptoms did improve some, but she still is definitely have more stools than is usual for her. In review of her office notes, she tested positive for Campylobacter species. Patient does not know what antibiotic she was treated with. Objective Vital signs: Temperature 96.8 F 12/07/16 07:41 Pulse Rate 66 12/07/16 07:41 Respiratory Rate 16 12/07/16 07:41 Blood Pressure 97/48 12/07/16 07:41 Pulse Oximetry 91 12/07/16 07:41 Height/Weight/BMI: Height 1.6 m Weight 53.2 kg Body Mass Index 20.9 - Constitutional Present: no acute distress, well nourished, well developed - Routine HEENT Exam Eye: Present: EOMI ENT: Present: mucous membranes moist, dentition normal - Routine Respiratory Exam Present: CTA bilaterally. Absent: wheezes - Routine Cardiovascular Exam Present: RRR, S1, S2. Absent: murmur - Routine Abdominal Exam Present: soft, normoactive bowel sounds, non distended. Absent: tenderness - Routine Extremities Exam Present: full ROM, normal capillary refill - Routine Back/Spine/Pelvis Exam Comments: Pelvic pain with movement - Routine Skin Exam Present: intact, dry, warm - Routine Neurological Exam Present: alert, oriented X3, CN II-XII intact - Routine Lymphatic Exam Lymphatic: Absent: adenopathy - Routine Psychiatric Exam Present: normal affect Hospital Course This is a general summary of the patient's hospital course. For more details refer to the complete medical record. Hospital course: Iris was admitted yesterday under the care of the hospitalist services following a acute left superior and inferior rami pelvic fracture. He was placed on Tylenol for pain control. She does have numerous reported ALLERGIES, adverse effects of nausea and vomiting with narcotic pain medication. Her pain has not been well controlled on Tylenol. However, she has reservation to try hydrocodone. Will give patient a tramadol to see if this helps with pain control. This morning she is working with PT and OT for evaluation of ambulation and strengthening. Iris resides independently at [facility]. Her plan is to discharge to [facility] at [facility] for short-term therapy and rehabilitation. We did discuss the importance of bowel motivation giving her acute pelvic fracture. Will recommend utilizing MiraLAX and senna plus twice a day. Would like her to follow-up with primary care provider, Dr. Sha Cordoba in one week. Time spent with patient: greater than 35 minutes Discharge Plan - Med Rec/Dispo Referrals/Follow Up: Sha Cordoba MD [Family Provider] - (Follow up with Dr Cordoba in 1 week.) Prescriptions: New Senna + Docusate [Senna Plus Tablet] 2 tab PO BID tablet Tramadol [Ultram] 50 mg PO Q6HR PRN #30 tab PRN Reason: pain Acetaminophen [Tylenol] 650 mg PO QID tablet Polyethylene Glycol 3350 [Miralax] 17 gm PO DAILY #30 powd.pack Continue Omeprazole 20 mg PO BID #0 Multivitamin [Multivitamins] 1 tab PO DAILY #0 Polyvinyl Alcohol/Povidone/Pf [Refresh Classic Eye Drops] 1 drop BOTH EYES DAILY PRN #0 ml PRN Reason: Prn Orders Albuterol Sulfate [Ventolin Hfa] 1 puff ORAL INH Q4H PRN #0 PRN Reason: SHORTNESS OF AIR/WHEEZING Acetaminophen [Acetaminophen Extra Strength] 500 mg PO Q4H PRN PRN Reason: Pain Fulvestrant [Faslodex] 500 mg IM 1 MONTH Nitroglycerin 0.4 mg SL Q5MIN3 PRN PRN Reason: Chest Pain Atorvastatin [Lipitor] 10 mg PO HS Metoprolol Succinate 75 mg PO BID Levothyroxine Sodium 25 mcg PO ACB CALCIUM CARBONATE Chewable [Tums] 500 mg PO Q2H PRN PRN Reason: Prn Orders Potassium Chloride [Micro-K] 20 meq PO WB ALPRAZolam [Xanax] 0.5 mg PO HS PRN #30 tab PRN Reason: Insomnia Aspirin [Aspir 81] 81 mg PO DAILY #0 Latanoprost [Xalatan] 1 drop EACH EYE DAILY #0 Furosemide [Lasix] 40 mg PO DAILY Discharge Instructions/Outpatient Orders: Final Provider Discharge Instructions Location: Determined By Patient - Disposition [address] [facility] Home/Facility <Gege Alba - Last Filed: 12/07/16 12:55> Discharge Information Date of admission: 12/06/16 14:16 Attending Physician: Sigrid Rodriguez MD Primary care physician: Sha Cordoba MD Consults: 12/06/16 Inpatient Rehab Screening [CONS] Routine Screen requested by:: Physician Comment Text:: Jennifer 12/06/16 15:32 Inpatient Rehab Screening [CONS] Routine Screen requested by:: Physician Comment Text:: 12/07/16 12:26 Physician Consult [CONS] Routine Consulting Provider: Susie Stephens Reason For Exam: cont care Ordering Provider has Notified Crew Leader Gluing: Yes - Laboratory Labs: 12/07/16 03:58 12/07/16 03:58 Objective Vital signs: Temperature 97.3 F 12/07/16 12:20 Pulse Rate 67 12/07/16 12:20 Respiratory Rate 16 12/07/16 12:20 Blood Pressure 135/59 12/07/16 12:20 Pulse Oximetry 92 12/07/16 12:20 Height/Weight/BMI: Height 1.6 m Weight 53.2 kg Body Mass Index 20.9 Hospital Course This is a general summary of the patient's hospital course. For more details refer to the complete medical record. Hospital course: 12/07/2016-I reviewed this chart, the patient history, and the [employer]'s/PA's documented findings as above. We discussed and formulated the assessment and plan as above with the additions below.-Dr. Alba The patient states she is feeling well today. Tramadol has helped with her pelvic pain and she states she has not had any side effects. She is eating and drinking okay. She had diarrhea from Campylobacter prior to admission but that has now resolved. She states she finished out the antibiotics that were prescribed prior to admission. On exam she is alert and in no acute distress. Chest is clear to auscultation. Cardiovascular reveals a regular rate and rhythm. Abdomen is soft and nontender with positive bowel sounds. The patient appears stable for dismissal to the care home. She will undergo PT and OT for strengthening and hopefully return back to her previous living situation when her strength has improved. I did call and talk with LADY Jay for Dr. Cordoba and notified her of hospital findings and discharge plans.
[2016-12-07 12:20] VITALS: BP 135/59; PULSE 67; TEMP 97.3; O2SAT 92
== END 2016-12-07 15:05 ==
LOC: SRG 11:53 → ED 11:53 → SRG 14:33
PROVIDERS: ADMIT Internal Medicine; ATTEND Internal Medicine